=== PATIENT | female | born 1945 | race Caucasian/White ===

== ENCOUNTER 2018-10-18 01:42 | Observation (INO) | payer MEDICARE ==
[~2018-10-18] VITALS: Ht 154.9 cm; Wt 86.8 kg
[2018-10-18] MEDS ORDERED: IV NORMAL SALINE 500ML BAG 500 ML IV ONE (02:30)
--- NOTE | 2018-10-18 02:35 | PHYS DOC ---
Past Medical History Past Medical History: A-Fib, Arrhythmia, Depression, GERD, High Cholesterol, Hypertension Past Surgical History: Cholecystectomy, Hysterectomy Alcohol Use: None Drug Use: None Adult General HPI HPI Patient is a 73 year old female who presents for cough, nausea, SOB, and a sense of impeding doom. Patient reports she awoke from sleep around 2300 this PM with sensation of impeding doom, full body coldness/numbness, SOB and lightheadedness. She attempted to "walk it off" and made herself a cup of hot tea but this did not make her feel any better. She then decided to call EMS. She reports that her Sx have mostly resolved at this time and she feels warmer than before; however, she does still report some nausea and lightheadedness. she is feeling chest heaviness noted mild. Denies recent travel, hospitalizations, or surgeries. The patient reports recent cough and congestion , and was seen by her PCP for this. She has been using Flonase and antihistamines. She denies any fevers or chills. The patient does report an episode similar to her current occuring around 1 year ago while she was on vacation. She was evaluated at when she returned home where she had a NM stress test and echocardiogram. She reports that these results showed CAD, but she has no hx of WI or cardiac stents. SHE SAID she had a MPI last year at that she tells me was intermediate in nature she thinks it was indeterminate. Pt takes ASA daily, but no other blood thinners. No other complaints at this time. Of note patient did desat temporally 84% while nodding off in the emergency room she does report a history of sleep apnea but she doesn't like her CPAP because it makes her nose stuffy. Review of Systems Review of Systems Constitutional: + lightheadedness, Denies fever or chills [] Eyes: Denies change in visual acuity, redness, or eye pain [] HENT: + nasal congestion, No sore throat [] Respiratory: + cough, + SOB Cardiovascular: No additional information not addressed in HPI [] GI: Denies abdominal pain, nausea, vomiting, bloody stools or diarrhea [] : Denies dysuria or hematuria [] Musculoskeletal: Denies back pain or joint pain. denies leg swelling Integument: Denies rash or skin lesions [] Neurologic: Denies headache, focal weakness or sensory changes [] Endocrine: Denies polyuria or polydipsia [] All other systems were reviewed and found to be within normal limits, except as documented in this note. Current Medications Current Medications Current Medications Medications (Trade) Dose Ordered Sig/Caesar Start Time Stop Time Status Last Admin Dose Admin Acetaminophen (Tylenol) 1,000 mg 1X ONCE 10/18/18 05:15 10/18/18 05:16 DC 10/18/18 05:02 1,000 MG Aspirin (Children'S Aspirin) 324 mg 1X ONCE 10/18/18 06:00 10/18/18 06:01 Nitroglycerin (Nitro-Bid Oint) 1 inch 1X ONCE 10/18/18 06:00 10/18/18 06:01 Nitroglycerin (Nitrostat) 0.4 mg PRN Q5MIN PRN 10/18/18 04:45 10/19/18 04:44 10/18/18 04:51 0.4 MG Sodium Chloride 500 ml @ 500 mls/hr 1X ONCE 10/18/18 02:30 10/18/18 03:29 DC 10/18/18 02:52 500 MLS/HR Allergies Allergies Allergies Coded Allergies Type Severity Reaction Last Updated Verified Iodinated Contrast Media - IV Dye Allergy Intermediate RASH/SWELLING/SKIN TURNS RED. 05/26/15 Yes lidocaine Allergy Intermediate RASH/SWELLING 05/26/15 Yes shellfish derived Allergy Intermediate RED RASH/HIVES ALL OVER BODY 05/26/15 Yes Physical Exam Physical Exam Constitutional: Well developed, well nourished, no acute distress, non-toxic appearance. [] HENT: Normocephalic, atraumatic, bilateral external ears normal, oropharynx moist, no oral exudates, nose normal. [] Eyes: PERRLA, EOMI, conjunctiva normal, no discharge. [] Neck: Normal range of motion, no tenderness, supple, no stridor. [] Cardiovascular:Heart rate regular rhythm, no murmur [] Lungs & Thorax: Crackles in the RLL, moves air well, no respiratory distress or tachypnea, no wheezing or rhonchi Abdomen: Bowel sounds normal, soft, no tenderness, no masses, no pulsatile masses. [] Skin: Warm, dry, no erythema, no rash. [] Back: No tenderness, no CVA tenderness. [] Extremities: No tenderness, no cyanosis, no clubbing, ROM intact, no edema. [] Neurologic: Alert and oriented X 3, normal motor function, normal sensory function, no focal deficits noted. CN 2-12 intact bilat, no facial droop Psychologic: Affect normal, judgement normal, mood normal. [] Current Patient Data Vital Signs Vital Signs Date Time Temp Pulse Resp B/P (MAP) Pulse Ox O2 Delivery O2 Flow Rate FiO2 10/18/18 04:51 81 169/77 10/18/18 01:42 98.3 18 94 Room Air 98.3 Lab Values Laboratory Tests Test 10/18/18 01:50 10/18/18 02:20 10/18/18 04:35 Urine Collection Type Unknown Urine Color Yellow Urine Clarity Clear Urine pH 7.0 Urine Specific [place] 1.020 Urine Protein Negative mg/dL (NEG-TRACE) Urine Glucose (UA) 100 mg/dL (NEG) Urine Ketones (Stick) Negative mg/dL (NEG) Urine Blood Negative (NEG) Urine Nitrite Negative (NEG) Urine Bilirubin Negative (NEG) Urine Urobilinogen Dipstick 0.2 mg/dL (0.2 mg/dL) Urine Leukocyte Esterase Negative (NEG) Urine RBC 0 /HPF (0-2) Urine WBC 1-4 /HPF (0-4) Urine Squamous Epithelial Cells Few /LPF Urine Bacteria Few /HPF (0-FEW) Urine Mucus Mod /LPF White Blood Count 9.3 x10^3/uL (4.0-11.0) Red Blood Count 4.26 x10^6/uL (3.50-5.40) Hemoglobin 13.0 g/dL (12.0-15.5) Hematocrit 37.6 % (36.0-47.0) Mean Corpuscular Volume 88 fL (79-100) Mean Corpuscular Hemoglobin 31 pg (25-35) Mean Corpuscular Hemoglobin Concent 35 g/dL (31-37) Red Cell Distribution Width 13.1 % (11.5-14.5) Platelet Count 233 x10^3/uL (140-400) Neutrophils (%) (Auto) 74 % (31-73) H Lymphocytes (%) (Auto) 17 % (24-48) L Monocytes (%) (Auto) 7 % (0-9) Eosinophils (%) (Auto) 1 % (0-3) Basophils (%) (Auto) 1 % (0-3) Neutrophils # (Auto) 6.9 x10^3uL (1.8-7.7) Lymphocytes # (Auto) 1.6 x10^3/uL (1.0-4.8) Monocytes # (Auto) 0.7 x10^3/uL (0.0-1.1) Eosinophils # (Auto) 0.1 x10^3/uL (0.0-0.7) Basophils # (Auto) 0.1 x10^3/uL (0.0-0.2) Sodium Level 141 mmol/L (136-145) Potassium Level 3.6 mmol/L (3.5-5.1) Chloride Level 102 mmol/L (98-107) Carbon Dioxide Level 29 mmol/L (21-32) Anion Gap 10 (6-14) Blood Urea Nitrogen 13 mg/dL (7-20) Creatinine 0.6 mg/dL (0.6-1.0) Estimated GFR (Cockcroft-Gault) 97.5 BUN/Creatinine Ratio 22 (6-20) H Glucose Level 119 mg/dL (70-99) H Calcium Level 9.6 mg/dL (8.5-10.1) Total Bilirubin 0.2 mg/dL (0.2-1.0) Aspartate Amino Transferase (AST) 23 U/L (15-37) Alanine Aminotransferase (ALT) 26 U/L (14-59) Alkaline Phosphatase 76 U/L (46-116) Troponin I Quantitative 0.021 ng/mL (0.000-0.055) 0.046 ng/mL (0.000-0.055) Total Protein 7.3 g/dL (6.4-8.2) Albumin 3.9 g/dL (3.4-5.0) Albumin/Globulin Ratio 1.1 (1.0-1.7) Laboratory Tests 10/18/18 02:20 Laboratory Tests 10/18/18 02:20 EKG EKG [] Interpretation Time: EKG shows normal sinus rhythm rate of [address] changes anteriorly but there is no acute ischemia or STEMI seen. repeat ekg unchanged Radiology/Procedures Radiology/Procedures [] Impressions: Moderate elevation of right hemidiaphragm, increased from prior study. Calcified granuloma right lung base. Mild atelectasis in the right lung base. Atherosclerotic thoracic aorta. Mild cardiomegaly. The left lung is clear. No pleural abnormality. Bones unremarkable. IMPRESSION: Moderate elevation of right hemidiaphragm, increased from prior study. Mild right basilar atelectasis. Electronically signed by: Dejon Grant MD (10/18/2018 3:05 AM) [facility] [place] DICTATED and SIGNED BY: DEJON GRANT MD DATE: 10/18/18 030 Course & Med Decision Making Course & Med Decision Making Pertinent Labs and Imaging studies reviewed. (See chart for details) Assessment: 73 y/o female presents with depression hypertension etc. setting with sensation of some mild chest discomfort as well as heart palpitations and a sense of impending doom well at home blood pressure was 214 systolic at home here her blood pressure has improved with the above treatment she is feeling better however she still feels mild discomfort in her chest or repeat EKG is unchanged we give a dose of nitroglycerin which did help somewhat. Troponin went from 0.02 to 0.04 in the emergency room and slept opted to admit the patient for observation to the service of Dr. Rangel blood pressures much improved reevaluation is in the 140 range Noted the elevation of the right hemidiaphragm this is probably nonacute. Dragon Disclaimer Dragon Disclaimer This electronic medical record was generated, in whole or in part, using a voice recognition dictation system. Departure Departure Impression: Primary Impression: Elevated blood pressure reading Additional Impression: Chest pain Disposition: ADMITTED INPATIENT Admitting Physician: Irene Mccormick Condition: STABLE Referrals: CARMINA GONZÁLES DO (PCP) Problem Qualifiers MALISSA BRISCOE MD Oct 18, 2018 02:34
[2018-10-18 02:38] LABS: BASO # 0.1 x10^3/uL (0.0-0.2); BASO % 1 % (0-3); EOS # 0.1 x10^3/uL (0.0-0.7); EOS % 1 % (0-3); HEMATOCRIT 37.6 % (36.0-47.0); LYMPH # 1.6 x10^3/uL (1.0-4.8); LYMPH % 17 % (24-48); MEAN CORPUSCULAR HEMOGLOBIN 31 pg (25-35); MEAN CORPUSCULAR HGB CONC 35 g/dL (31-37); MEAN CORPUSCULAR VOLUME 88 fL (79-100); MONO # 0.7 x10^3/uL (0.0-1.1); MONO % 7 % (0-9); NEUT # 6.9 x10^3uL (1.8-7.7); NEUT % 74 % (31-73); PLATELET COUNT 233 x10^3/uL (140-400); RED BLOOD COUNT 4.26 x10^6/uL (3.50-5.40); RED CELL DISTRIBUTION WIDTH 13.1 % (11.5-14.5); WHITE BLOOD COUNT 9.3 x10^3/uL (4.0-11.0)
[2018-10-18 02:43] LABS: BILIRUBIN,URINE NEGATIVE (NEG); CLARITY,URINE CLEAR; COLOR,URINE YELLOW; NITRITE,URINE NEGATIVE (NEG); PROTEIN,URINE NEGATIVE (NEG-TRACE); UROBILINOGEN,URINE 0.2 mg/dL (0.2 mg/dL)
[2018-10-18 02:52] LABS: CALCIUM 9.6 mg/dL (8.5-10.1); CREATININE 0.6 mg/dL (0.6-1.0); GFR 97.5; POTASSIUM 3.6 mmol/L (3.5-5.1)
[2018-10-18 02:58] LABS: ALBUMIN 3.9 g/dL (3.4-5.0); ALBUMIN/GLOBULIN RATIO 1.1 (1.0-1.7); TOTAL BILIRUBIN 0.2 mg/dL (0.2-1.0); TOTAL PROTEIN 7.3 g/dL (6.4-8.2)
[2018-10-18 03:09] LABS: BACTERIA,URINE FEW /HPF (0-FEW); RBC,URINE 0 /HPF (0-2)
--- NOTE | 2018-10-18 03:09 | RAD ---
PORTABLE CHEST 1V Clinical Indication: soa Comparison: Acute abdominal series May 26, 2015. Findings: Moderate elevation of right hemidiaphragm, increased from prior study. Calcified granuloma right lung base. Mild atelectasis in the right lung base. Atherosclerotic thoracic aorta. Mild cardiomegaly. The left lung is clear. No pleural abnormality. Bones unremarkable. IMPRESSION: Moderate elevation of right hemidiaphragm, increased from prior study. Mild right basilar atelectasis. Electronically signed by: Dejon Grant MD (10/18/2018 3:05 AM) [id number]
[2018-10-18 03:10] LABS: SQUAMOUS EPITHELIAL CELL,UR FEW /LPF
[2018-10-18] MEDS ORDERED: NITROGLYCERIN SUBLINGUAL 0.4 MG BOTTLE OF 25. SL PRN ×2 (04:45→05:45)
[2018-10-18] MEDS ORDERED: ACETAMINOPHEN 500 MG TABLET PO ONE (05:15)
[2018-10-18] MEDS ORDERED: NITROGLYCERIN OINT 1 GM PACKET. TP ONE (06:00)
[2018-10-18] MEDS ORDERED: ASPIRIN CHEWABLE 81 MG TABLET. PO ONE (06:00)
[2018-10-18 06:49] VITALS: BP 145/72
--- NOTE | 2018-10-18 07:03 | EKG ---
[facility] [address] [place] [address] Test Date: 2018-10-18 Test Time: 02:03:57 Pat Name: TIANNA ABDUL Department: Room: Gender: F Ebd Teacher: : 1945 Requested By: MALISSA BRISCOE Order Number: [id number] Reading MD: Measurements Intervals [place] Rate: 78 P: 21 MD: 192 QRS: -8 QRSD: 96 T: 15 QT: 412 QTc: 474 Interpretive Statements SINUS RHYTHM LEFTWARD AXIS OTHERWISE NORMAL ECG RI6.01 No previous ECG available for comparison
--- NOTE | 2018-10-18 07:06 | EKG ---
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
[2018-10-18] MEDS ORDERED: METO50TA6 PO (07:40)
[2018-10-18] MEDS ORDERED: OMEP20TA63 PO (07:40)
[2018-10-18] MEDS ORDERED: MULT1TAB52 PO (07:41)
[2018-10-18] MEDS ORDERED: CALC500T54 PO (07:42)
[2018-10-18] MEDS ORDERED: ASPI-630 PO (07:43)
[2018-10-18] MEDS ORDERED: PRAV20TA2 PO (07:43)
[2018-10-18] MEDS ORDERED: CITA20TA6 PO (07:45)
[2018-10-18 09:03] LABS: CHOLESTEROL/HDL RATIO 4.5
--- NOTE | 2018-10-18 09:27 | PDOC2 ---
CARDIAC CONSULT DATE OF CONSULT Date of Consult DATE: 10/18/18 TIME: 09:08 REASON FOR CONSULT Reason for Consult: CP, HTn urgency REFERRING PHYSICIAN Referring Physician: maycol SOURCE Source: Chart review, Patient HISTORY OF PRESENT ILLNESS HISTORY OF PRESENT ILLNESS This is a pleasant 73 yo female admitted for multiple complaints. Reports that occasionally she gets this chest tightness feeling after walking her dog but no jaw or arm discomfort and no nausea, diaphoresis or SILVA. Last night she got up with sense of impending doom, her body was just not feeling good, dizziness, and was having some chest tightness and feeling like she could not breath well but no diaphoresis or SOA per se and no vomiting. She does take ASA, statin and BP meds. When her BP was checked her BP was in the 210s/110s she said. Denies any anxiety but does take celexa for fibromyalgia. This is the same episode she had at [place] 11/2017 and was told that it was her BP and was just dehydrated. She does admit that she does not hydrate herself enough. She had stress test at via Dr. Harris and was not told of any significant abnormality that would require intervention in 12/2017. Denies any recent falls, injury, fever, passing out. No past CAD, arrhythmias or CVA. Denies that she is depressed but has been told in the past that she has SULEMAN and actually uses CPAP till about a month ago when she stopped due to being nasally congested. She has been tired in the middle of the since then. PAST MEDICAL HISTORY Cardiovascular: HTN, Hyperlipidemia Pulmonary: Other (SULEMAN) CENTRAL NERVOUS SYSTEM: Other (No pertinent history) GI: No pertinent hx Heme/Onc: No pertinent hx Hepatobiliary: No pertinent hx Psych: No pertinent hx Musculoskeletal: Osteoarthritis Rheumatologic: Fibromyalgia Infectious disease: No pertinent hx Renal/: No pertinent hx Endocrine: Diabetes (pre) Dermatology: No pertinent hx PAST SURGICAL HISTORY Past Surgical History: Arthroscopy (left knee), Cholecystectomy, Hysterectomy ( vaginal) FAMILY HISTORY Family History: Hypertension SOCIAL HISTORY Smoke: No ALCOHOL: none Drugs: None Lives: Alone CURRENT MEDICATIONS CURRENT MEDICATIONS Current Medications Medications (Trade) Dose Ordered Sig/Caesar Route PRN Reason Start Time Stop Time Status Last Admin Dose Admin Sodium Chloride 500 ml @ 500 mls/hr 1X ONCE IV 10/18/18 02:30 12/21/18 03:29 DC 10/18/18 02:52 Nitroglycerin (Nitrostat) 0.4 mg PRN Q5MIN PRN SL CHEST PAIN 10/18/18 04:45 10/18/18 05:43 DC 10/18/18 04:51 Acetaminophen (Tylenol) 1,000 mg 1X ONCE PO 10/18/18 05:15 10/18/18 05:16 DC 10/18/18 05:02 Aspirin (Children'S Aspirin) 324 mg 1X ONCE PO 10/18/18 06:00 10/18/18 06:01 DC 10/18/18 06:04 Nitroglycerin (Nitro-Bid Oint) 1 inch 1X ONCE TP 10/18/18 06:00 10/18/18 06:01 DC 10/18/18 06:05 ALLERGIES ALLERGIES: Coded Allergies: Iodinated Contrast Media - IV Dye (Verified Allergy, Intermediate, RASH/ SWELLING/SKIN TURNS RED., 05/26/15) PATIENT NEEDS PRE-MEDICATED PRIOR TO ANY SCANS REQUIRING IV CONTRAST. lidocaine (Verified Allergy, Intermediate, RASH/SWELLING, 05/26/15) shellfish derived (Verified Allergy, Intermediate, RED RASH/HIVES ALL OVER BODY, 05/26/15) ROS Review of System 14 point ROS evaluated with pertinent positives noted per HPI PHYSICAL EXAM General: Alert, Oriented X3, Cooperative, No acute distress HEENT: Atraumatic, Mucous membr. moist/pink Lungs: Clear to auscultation, Normal air movement Heart: Regular rate (SRno rhythm ectopies), Normal S1, Normal S2, No murmurs Abdomen: Soft, No tenderness Extremities: No cyanosis, No edema Skin: No breakdown, No significant lesion Neuro: Normal gait, Normal speech, Sensation intact Psych/Mental Status: Mental status NL, Mood NL MUSCULOSKELETAL: Osteoarthritic changes both hands VITALS VITALS Vital Signs Date Time Temp Pulse Resp B/P (MAP) Pulse Ox O2 Delivery O2 Flow Rate FiO2 10/18/18 06:49 97.3 71 20 145/72 (96) 95 Room Air 97.3 LABS Lab: Laboratory Tests Test 10/18/18 01:50 10/18/18 02:20 10/18/18 04:35 Urine Collection Type Unknown Urine Color Yellow Urine Clarity Clear Urine pH 7.0 Urine Specific [place] 1.020 Urine Protein Negative mg/dL (NEG-TRACE) Urine Glucose (UA) 100 mg/dL (NEG) Urine Ketones (Stick) Negative mg/dL (NEG) Urine Blood Negative (NEG) Urine Nitrite Negative (NEG) Urine Bilirubin Negative (NEG) Urine Urobilinogen Dipstick 0.2 mg/dL (0.2 mg/dL) Urine Leukocyte Esterase Negative (NEG) Urine RBC 0 /HPF (0-2) Urine WBC 1-4 /HPF (0-4) Urine Squamous Epithelial Cells Few /LPF Urine Bacteria Few /HPF (0-FEW) Urine Mucus Mod /LPF White Blood Count 9.3 x10^3/uL (4.0-11.0) Red Blood Count 4.26 x10^6/uL (3.50-5.40) Hemoglobin 13.0 g/dL (12.0-15.5) Hematocrit 37.6 % (36.0-47.0) Mean Corpuscular Volume 88 fL (79-100) Mean Corpuscular Hemoglobin 31 pg (25-35) Mean Corpuscular Hemoglobin Concent 35 g/dL (31-37) Red Cell Distribution Width 13.1 % (11.5-14.5) Platelet Count 233 x10^3/uL (140-400) Neutrophils (%) (Auto) 74 % (31-73) Lymphocytes (%) (Auto) 17 % (24-48) Monocytes (%) (Auto) 7 % (0-9) Eosinophils (%) (Auto) 1 % (0-3) Basophils (%) (Auto) 1 % (0-3) Neutrophils # (Auto) 6.9 x10^3uL (1.8-7.7) Lymphocytes # (Auto) 1.6 x10^3/uL (1.0-4.8) Monocytes # (Auto) 0.7 x10^3/uL (0.0-1.1) Eosinophils # (Auto) 0.1 x10^3/uL (0.0-0.7) Basophils # (Auto) 0.1 x10^3/uL (0.0-0.2) Sodium Level 141 mmol/L (136-145) Potassium Level 3.6 mmol/L (3.5-5.1) Chloride Level 102 mmol/L (98-107) Carbon Dioxide Level 29 mmol/L (21-32) Anion Gap 10 (6-14) Blood Urea Nitrogen 13 mg/dL (7-20) Creatinine 0.6 mg/dL (0.6-1.0) Estimated GFR (Cockcroft-Gault) 97.5 BUN/Creatinine Ratio 22 (6-20) Glucose Level 119 mg/dL (70-99) Calcium Level 9.6 mg/dL (8.5-10.1) Total Bilirubin 0.2 mg/dL (0.2-1.0) Aspartate Amino Transf (AST/SGOT) 23 U/L (15-37) Alanine Aminotransferase (ALT/SGPT) 26 U/L (14-59) Alkaline Phosphatase 76 U/L (46-116) Troponin I Quantitative 0.021 ng/mL (0.000-0.055) 0.046 ng/mL (0.000-0.055) Total Protein 7.3 g/dL (6.4-8.2) Albumin 3.9 g/dL (3.4-5.0) Albumin/Globulin Ratio 1.1 (1.0-1.7) Triglycerides Level 156 mg/dL (0-150) Cholesterol Level 243 mg/dL (0-200) LDL Cholesterol, Calculated 158 mg/dL (0-100) VLDL Cholesterol, Calculated 31 mg/dL (0-40) Non-HDL Cholesterol Calculated 189 mg/dL (0-129) HDL Cholesterol 54 mg/dL (40-60) Cholesterol/HDL Ratio 4.5 ASSESSMENT/PLAN ASSESSMENT/PLAN 1. Chest pain: trop series nml. EKG SR without acute changes. suspect due to uncontrolled HTN with element of panic attack 2. Accelerated HTN: likely from inadequate coverage and uncontrolled SULEMAN 3. Uncontrolled SULEMAN: stopped using CPAP due to nasal congestion about a month ago 4. Anxiety with possible panic attack. 5. Hypertensive encephalopathy 6. HLP: not on goal 7. Obesity 8. IV contrast allergy: Hives 9. Hx of firbromyalgi: on celexa for this. Recommendations 1. Repeat tropx1. TTE today 2. Discussed CPAP compliance 3. Start on coreg and lisinopril and note response. On daily lopressor only at home 4. Continue ASA and increase statin. 5. Will obtain stress test result from 12/2017 NICOLE BENSON APRN Oct 18, 2018 09:27
[2018-10-18] MEDS ORDERED: LISINOPRIL 5 MG TABLET. PO SCH (10:00)
[2018-10-18] MEDS ORDERED: CARVEDILOL 6.25 MG TABLET. PO SCH ×2 (10:00→17:00)
[2018-10-18 11:10] VITALS: BP 121/63
--- NOTE | 2018-10-18 11:19 | HP ---
ADMIT DATE: 10/18/2018 CHIEF COMPLAINT: Impending doom. 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 She woke up this morning with impending doom. She states she was short of breath, nauseated, and thought she was going to . She called the ambulance. She was brought here. She rated her symptoms at 9/10. Had associated anxiety. I discussed the case with ER physician. We have admitted her. She is now on the cardiac floor. I have talked to nurse practitioner. We are going to try to get the old records from . Apparently, she had a stress test recently. PAST MEDICAL HISTORY: AFib, arrhythmias, depression, GERD, hypertension, hyperlipidemia, cholecystectomy, hysterectomy. ALLERGIES: IODINE, LIDOCAINE AND SHELLFISH. FAMILY HISTORY: Coronary artery disease. 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 She does not drink, smoke or take drugs. She is . MEDICATIONS: Reviewed, please refer to the MRAD. She is on 7 home medications including pravastatin, metoprolol, aspirin, citalopram, calcium, Prilosec and multiple vitamins. REVIEW OF SYSTEMS: GENERAL: No history of weight change, weakness or fevers. SKIN: No bruising, hair changes or rashes. EYES: No blurred, double or loss of vision. NOSE AND THROAT: No history of nosebleeds, hoarseness or sore throat. HEART: No history of palpitations, chest pain or shortness of breath on exertion. LUNGS: Denies cough, hemoptysis, wheezing or shortness of breath. GASTROINTESTINAL: Denies changes in appetite, nausea, vomiting, diarrhea or constipation. GENITOURINARY: No history of frequency, urgency, hesitancy or nocturia. NEUROLOGIC: Denies history of numbness, tingling, tremor or weakness. PSYCHIATRIC: No history of panic, anxiety or depression. ENDOCRINE: No history of heat or cold intolerance, polyuria or polydipsia. EXTREMITIES: Denies muscle weakness, joint pain, pain on walking or stiffness. PHYSICAL EXAMINATION: VITAL SIGNS: Temperature 97, pulse 80, respirations 20, blood pressure 145/72, O2 sat 95%. She is on 2 liters. GENERAL: She is awake, alert. Her is present and her son is present. They are good support for her. HEART: Normal S1, S2. LUNGS: Clear to auscultation. ABDOMEN: Soft, positive bowel sounds. EXTREMITIES: Trace edema. SKIN: No rashes. ENDOCRINE: No thyromegaly. LYMPHATICS: No cervical nodes. HEMATOPOIETIC: No bruising. PSYCHIATRIC: She is a little anxious. LABORATORY DATA: Hematology is normal. Electrolytes are pending. Troponin slightly high at 0.064. ASSESSMENT AND PLAN: Shortness of breath and sense of impending doom with a slight bump in her troponin to 0.064 in an elderly female who has the above noted comorbidities. Suspect she could have underlying coronary artery disease. I have consulted Cardiology. We are doing serial enzymes, serial EKGs, cardiac monitoring, home meds. We are going to try to get the results of her stress test from . Full code. TSH level, p.r.n. nitro, p.r.n. Tylenol. DORENE FRANCISCO DO DR: MARK/santiago JOB#: [id number] / [id number]
--- NOTE | 2018-10-18 12:02 | CARD ---
MR#: [id number] Date of Study: 10/18/2018 Ordering Physician: NICOLE RODRÍGUEZ, Referring Physician: DORENE FRANCISCO Tech: Suha Maya URBAN APPROVED REPORT EXAM: Two-dimensional and M-mode echocardiogram with Doppler and color Doppler. Other Information Quality : Technically LimitedHR: 80bpm Rhythm : NSR INDICATION Chest Pain 2D DIMENSIONS RVDd3.6 (2.9-3.5cm)Left Atrium(2D)3.9 (1.6-4.0cm) IVSd1.3 (0.7-1.1cm)Aortic Root(2D)2.9 (2.0-3.7cm) LVDd4.8 (3.9-5.9cm)LVOT Diameter1.9 (1.8-2.4cm) PWd1.0 (0.7-1.1cm)LVDs2.9 (2.5-4.0cm) FS (%) 40.6 %SV77.9 ml M-Mode DIMENSIONS Left Atrium(MM)3.09 (2.5-4.0cm)Aortic Root3.19 (2.2-3.7cm) Aortic Valve AoV Peak Farhad.181.7cm/sAoV VTI37.3cm AO Peak GR.13.2mmHgLVOT Peak Farhad.115.8cm/s AO Mean GR.6mmHgAVA (VMAX)1.76cm2 Mitral Valve MV E Lhwsyhrs06.4cm/sMV DECEL KYSX060vw MV A Vycvjczq99.4cm/sE/A Ratio0.8 MV A Fvqatefh171bl Pulmonary Valve PV Peak Ycjmzbah19.9cm/s Tricuspid Valve TR P. Gckojjda554wo/sRAP CKCTJVAF1nqQx TR Peak Gr.95qaTbHBPQ33mjAr LEFT VENTRICLE The left ventricle is normal size. There is mild concentric left ventricular hypertrophy. The left ve ntricular systolic function is normal and the ejection fraction is within normal range. The Ejection Fraction is 60-65%. There is normal LV segmental wall motion. Transmitral Doppler flow pattern is abn ormal. RIGHT VENTRICLE The right ventricle is borderline dilated. There is normal right ventricular wall thickness. The righ t ventricular systolic function is normal. ATRIA The left atrium is borderline dilated. The right atrium is borderline dilated. The interatrial septum is intact with no evidence for an atrial septal defect or patent foramen ovale as noted on 2-D or Do ppler imaging. AORTIC VALVE The aortic valve is normal in structure and function. The aortic valve is trileaflet. Doppler and Col or Flow revealed no significant aortic regurgitation. There is no significant aortic valvular stenosi s. There is no aortic valvular vegetation. MITRAL VALVE The mitral valve is normal in structure and function. There is no evidence of mitral valve prolapse. There is no mitral valve stenosis. Doppler and Color-flow revealed trace mitral regurgitation. TRICUSPID VALVE The tricuspid valve is normal in structure and function. Doppler and Color Flow revealed trace tricus pid regurgitation. The PA pressure was estimated at 29 mmHg. There is no tricuspid valve prolapse or vegetation. There is no tricuspid valve stenosis. PULMONIC VALVE Pulmonic valve not well visualized. GREAT VESSELS The aortic root is normal in size. The ascending aorta is normal in size. The IVC is normal in size a nd collapses >50% with inspiration. PERICARDIAL EFFUSION There is no evidence of significant pericardial effusion. Critical Notification Critical Value: No <Conclusion> The left ventricle is normal size. The left ventricular systolic function is normal and the ejection fraction is within normal range. The Ejection Fraction is 60-65%. There is mild concentric left ventricular hypertrophy. There is no significant aortic valvular stenosis. Doppler and Color Flow revealed no significant aortic regurgitation. Doppler and Color-flow revealed trace mitral regurgitation. Doppler and Color Flow revealed trace tricuspid regurgitation. The PA pressure was estimated at 29 mmHg. Signed by : Carlos Kaur MD Electronically Approved : 10/18/2018 12:00:27
[2018-10-18] MEDS ORDERED: REGADENOSON 0.4 MG/5 ML DISP.SYRIN. IV ONE (12:15)
--- NOTE | 2018-10-18 13:36 | EKG ---
[facility] [address] [place] [address] Test Date: 2018-10-18 Test Time: 13:21:22 Pat Name: TIANNA ABDUL Department: Room: Gender: F Telephone Repairer: REMBERTO : 1945 Requested By: MALISSA BRISCOE Order Number: [id number] Reading MD: Measurements Intervals [place] Rate: 75 P: 6 HI: 200 QRS: 3 QRSD: 88 T: 29 QT: 432 QTc: 485 Interpretive Statements SINUS RHYTHM PROLONGED QT NO SPECIFIC ECG ABNORMALITIES RI6.01 No previous ECG available for comparison
[2018-10-18 15:07] VITALS: BP 137/55
--- NOTE | 2018-10-18 15:45 | RAD ---
MR#: [id number] Date of Study: 10/18/2018 Ordering Physician: NICOLE RODRÍGUEZ, Referring Physician: LITTLE SHIPLEY Tech: ERIKA Hernandez ARRT (R) (N) APPROVED REPORT Test Type: Pharmacological Stress Nurse/Tech: Jailene Calderon R.N. Test Indications: dyspnea Cardiac History: asthma, htn, 2012 heart cath Medications: see ehr Medical History: see ehr Resting ECG: SR Resting Heart Rate: 82 bpm Resting Blood Pressure: 162/74mmHg Pretest Chest Pain: No chest pain Nurse/Tech Notes lungs cta, heart tones regular Consent: The procedure was explained to the patient in lay terms. Informed consent was witnessed. Rob eout was entered into uchoose. History and Stress Test performed by ERIKA Hernandez ARRT (R) (N) Pharm. Details Pharmacologic stress testing was performed using 0.4mg per 5ml of regadenoson given intravenously ove r 7-10 seconds. Stress Symptoms pt reports chest heaviness immediately following injection that resolved during recovery, now c/o MCKEON POST EXERCISE Reason for Termination: Infusion complete Target HR: No Max HR: 110 bpm Max Blood Pressure: 184/95mmHg Chest Pain: . pt states having chest heaviness, not actual pain per pt Arrhythmia: No. INTERPRETATION Stress EKG Conclusion: Resting EKG shows a sinus rhythm with nonspecific ST-T wave changes. The stress EKG shows further mild nonspecific ST segment changes that are not diagnostic of ischemia. No EKG changes that are diagnostic of stressed induced ischemia. Imaging Protocol IMAGE PROTOCOL: Rest Tc-99m/stress Tc-99m 1 day Rest: Stress: Viability: Radiopharm.Tc99m ZthojbptcFo46r Sestamibi Etxu87cZz 31mCi Img Date 10/18/2018 10/18/2018 Inj-Img Retk09cpc. 60min. Rest Admin Site:IV - Left AntecubitalAdministrator:RT Elan (R)(N) Stress Admin Site: IV - Left AntecubitalAdministrator: Roslyn Redmond, NMTCB, ARRT (R)(N) STRESS DATA End Diast. Vol.74.0mlLVEDV index BSA40.0ml End Syst. Vol.15.0mlLVESV index BSA8.0ml Myocardial Sefq545.0gEject. Enqslsab17.0% Stress Scores Regional WT0.00Summed WT0.00 Regional WM0.00Summed WM0.00 LV Perfusion This stress scans show an inferior lateral wall defect. The rest scans show an inferior lateral wall defect. 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 No significant reversible ischemia is present. Wall Motion Normal left ventricular systolic function with an ejection fraction of greater than 70%. LV Perf. Quant 17 Seg. SSS5.00 17 Seg. SRS8.00 17 Seg. SDS0.00 Stress Defect Extent (% LAD)0.00Rest Defect Extent (% LAD)7.50Rev. Defect Extent (% LAD)0.00 Stress Defect Extent (% LCX) 53.80Rest Defect Extent (% LCX)56.30Rev. Defect Extent (% LCX)0.00 Stress Defect Extent (% RCA)0.00Rest Defect Extent (% RCA)5.60Rev. Defect Extent (% RCA)0.00 Stress Defect Extent (% DALLIN)10.00Rest Defect Extent (% DALLIN)19.60Rev. Defect Extent (% DALLIN)0.00 Conclusion 1. Abnormal baseline EKG but no EKG evidence of stressed induced ischemia. 2. 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 3. Nuclear imaging shows no significant reversible ischemia. 4. Intact LV systolic function with an ejection fraction of greater than 70%. 5. Moderate to moderately low risk Lexiscan nuclear stress test showing no significant reversible isc hemia and an ejection fraction of greater than 70%. Signed by : Carlos Kaur MD Electronically Approved : 10/18/2018 15:43:43
[2018-10-18] MEDS ORDERED: LISI-338 PO (16:42)
[2018-10-18] MEDS ORDERED: ASPIRIN CHEWABLE 81 MG TABLET. PO SCH (21:00)
[2018-10-18] MEDS ORDERED: ATORVASTATIN CALCIUM 40 MG TABLET. PO SCH (21:00)
== END 2018-10-18 17:15 | disposition home or self-care (01) ==
LOC: ER 01:42 → 2 SOUTH 05:30
PROVIDERS: ADMIT Internal Medicine; ATTEND Internal Medicine
DX: R07.89 Other chest pain (principal); I10 Essential (primary) hypertension; G47.33 Obstructive sleep apnea (adult) (pediatric); F41.9 Anxiety disorder, unspecified; I67.4 Hypertensive encephalopathy; E66.9 Obesity, unspecified; M79.7 Fibromyalgia; J98.11 Atelectasis; I25.10 Atherosclerotic heart disease of native coronary artery without angina pectoris; E78.5 Hyperlipidemia, unspecified; I48.91 Unspecified atrial fibrillation; K21.9 Gastro-esophageal reflux disease without esophagitis; Z79.82 Long term (current) use of aspirin; Z91.041 Radiographic dye allergy status; Z90.710 Acquired absence of both cervix and uterus; Z82.49 Family history of ischemic heart disease and other diseases of the circulatory system
CPT/HCPCS: 36415; 71045; 78452; 80053; 80061; 81001; 84443; 84484; 85025; 93005; 93017; 93306; 96360; 99284; A9500; G0378; J2785; J7040; 96374; G0379

== ENCOUNTER 2018-11-11 03:18 | Emergency (ER) | payer MEDICARE ==
[~2018-11-11] VITALS: Ht 154.9 cm; Wt 85.3 kg
[~2018-11-11 03:18] MED LIST: ASPI-630 PO; CALC500T54 PO; CITA20TA6 PO; LISI-338 PO; METO50TA6 PO; MULT1TAB52 PO; OMEP20TA63 PO; PRAV20TA2 PO
--- NOTE | 2018-11-11 03:44 | PHYS DOC ---
Past Medical History Past Medical History: A-Fib, Arrhythmia, Depression, GERD, High Cholesterol, Hypertension, Other Additional Past Medical Histor: Sleep Apnea Past Surgical History: Cholecystectomy, Hysterectomy Alcohol Use: None Drug Use: None Adult General Chief Complaint Chief Complaint: SHORTNESS OF BREATH [facility] HPI Patient is a 73-year-old female who presents via EMS with report of shortness of breath and chest tightness. Patient states that for the last 4 days she has had a productive cough of thick yellow to greenish sputum and states that she has been doing fairly well but states that this morning when she was getting read to go to bed, she put on her CPAP and laid down to sleep. She states that she started to feel like she could not get a good enough breath in and developed chest tightness. She states that she took a half a Xanax and states the symptoms have improved somewhat but she still feeling a bit short of breath. She denies any actual chest pain, stating that it's just tightness in her chest. She does not believe that she has been running a fever. Patient states that she is not on any antibiotics. She does indicate that she was recently admitted to this facility for cardiac workup which she believes had returned unremarkable. Review of Systems Review of Systems Constitutional: Denies fever or chills [] Respiratory: Positive productive cough and shortness of breath [] Cardiovascular: No additional information not addressed in HPI [] Musculoskeletal: Denies back pain or joint pain [] Neurologic: Denies headache, focal weakness or sensory changes [] All other systems were reviewed and found to be within normal limits, except as documented in this note. Current Medications Current Medications Current Medications Medications (Trade) Dose Ordered Sig/[facility] Start Time Stop Time Status Last Admin Dose Admin Albuterol/ Ipratropium (Duoneb) 3 ml 1X ONCE 11/11/18 03:45 11/11/18 03:46 DC 11/11/18 04:32 3 ML Allergies Allergies Allergies Coded Allergies Type Severity Reaction Last Updated Verified Iodinated Contrast Media - IV Dye Allergy Intermediate RASH/SWELLING/SKIN TURNS RED. 05/26/15 Yes lidocaine Allergy Intermediate RASH/SWELLING 05/26/15 Yes shellfish derived Allergy Intermediate RED RASH/HIVES ALL OVER BODY 05/26/15 Yes Physical Exam Physical Exam Constitutional: Well developed, well nourished, no acute distress, non-toxic appearance. [] HENT: Normocephalic, atraumatic, bilateral external ears normal, oropharynx moist, no oral exudates, nose normal. [] Eyes: PERRLA, EOMI, conjunctiva normal, no discharge. [] Neck: Normal range of motion, no tenderness, supple, no stridor. [] Cardiovascular: Regular rate and rhythm [] Lungs & Thorax: There fine rhonchi in the lung bases to auscultation [] Abdomen: Bowel sounds normal, soft, no tenderness. [] Skin: Warm, dry, no erythema, no rash. [] Extremities: No tenderness, no cyanosis, no clubbing, ROM intact. [] Neurologic: Alert and oriented X 3, no focal deficits noted. [] Current Patient Data Vital Signs Vital Signs Date Time Temp Pulse Resp B/P (MAP) Pulse Ox O2 Delivery O2 Flow Rate FiO2 11/11/18 04:35 97 Room Air 11/11/18 04:01 84 20 180/86 (117) 11/11/18 03:18 98.1 98.1 Lab Values Laboratory Tests Test 11/11/18 03:30 11/11/18 03:45 White Blood Count 8.1 x10^3/uL (4.0-11.0) Red Blood Count 4.43 x10^6/uL (3.50-5.40) Hemoglobin 13.6 g/dL (12.0-15.5) Hematocrit 39.3 % (36.0-47.0) Mean Corpuscular Volume 89 fL (79-100) Mean Corpuscular Hemoglobin 31 pg (25-35) Mean Corpuscular Hemoglobin Concent 35 g/dL (31-37) Red Cell Distribution Width 13.5 % (11.5-14.5) Platelet Count 234 x10^3/uL (140-400) Neutrophils (%) (Auto) 80 % (31-73) H Lymphocytes (%) (Auto) 13 % (24-48) L Monocytes (%) (Auto) 6 % (0-9) Eosinophils (%) (Auto) 1 % (0-3) Basophils (%) (Auto) 1 % (0-3) Neutrophils # (Auto) 6.4 x10^3uL (1.8-7.7) Lymphocytes # (Auto) 1.0 x10^3/uL (1.0-4.8) Monocytes # (Auto) 0.5 x10^3/uL (0.0-1.1) Eosinophils # (Auto) 0.1 x10^3/uL (0.0-0.7) Basophils # (Auto) 0.0 x10^3/uL (0.0-0.2) Sodium Level 136 mmol/L (136-145) Potassium Level 3.7 mmol/L (3.5-5.1) Chloride Level 101 mmol/L (98-107) Carbon Dioxide Level 28 mmol/L (21-32) Anion Gap 7 (6-14) Blood Urea Nitrogen 10 mg/dL (7-20) Creatinine 0.8 mg/dL (0.6-1.0) Estimated GFR (Cockcroft-Gault) 69.9 BUN/Creatinine Ratio 13 (6-20) Glucose Level 133 mg/dL (70-99) H Calcium Level 9.4 mg/dL (8.5-10.1) Total Bilirubin 0.1 mg/dL (0.2-1.0) L Aspartate Amino Transferase (AST) 11 U/L (15-37) L Alanine Aminotransferase (ALT) 23 U/L (14-59) Alkaline Phosphatase 84 U/L (46-116) Troponin I Quantitative < 0.017 ng/mL (0.000-0.055) UE-Qar-T-Type Natriuretic Peptide 95 pg/mL (0-449) Total Protein 7.4 g/dL (6.4-8.2) Albumin 3.5 g/dL (3.4-5.0) Albumin/Globulin Ratio 0.9 (1.0-1.7) L Influenza Type A Antigen Negative (NEGATIVE) Influenza Type B Antigen Negative (NEGATIVE) Laboratory Tests 11/11/18 03:30 Laboratory Tests 11/11/18 03:30 EKG EKG [] Interpretation Time: EKG demonstrates normal sinus rhythm with rate of 83. Radiology/Procedures Radiology/Procedures [] Impressions: Chest x-ray demonstrates no acute process Course & Med Decision Making Course & Med Decision Making Pertinent Labs and Imaging studies reviewed. (See chart for details) [] Dragon Disclaimer Dragon Disclaimer This electronic medical record was generated, in whole or in part, using a voice recognition dictation system. Departure Departure Impression: Primary Impression: Acute bronchitis Additional Impression: Anxiety Disposition: HOME, SELF-CARE Condition: STABLE Referrals: CARMINA GONZÁLES DO (PCP) Patient Instructions: Acute Bronchitis Scripts Azithromycin (ZITHROMAX) 250 Mg Tablet 1 PKG PO UD, #6 TAB Prov: DIANDRA SHOOK Jr., DO 11/11/18 Problem Qualifiers Primary Impression: Acute bronchitis Bronchitis organism: unspecified organism Qualified Codes: J20.9 - Acute bronchitis, unspecified DIANDRA SHOOK Jr., DO Nov 11, 2018 03:44
[2018-11-11] MEDS ORDERED: IPRATRPIUM/ALBUTEROL 0.5/2.5MG 3 ML NEBU. NEB ONE (03:45)
[2018-11-11 03:48] LABS: BASO % 1 % (0-3); EOS # 0.1 x10^3/uL (0.0-0.7); EOS % 1 % (0-3); HEMATOCRIT 39.3 % (36.0-47.0); HEMOGLOBIN 13.6 g/dL (12.0-15.5); LYMPH % 13 % (24-48); MEAN CORPUSCULAR HEMOGLOBIN 31 pg (25-35); MEAN CORPUSCULAR HGB CONC 35 g/dL (31-37); MEAN CORPUSCULAR VOLUME 89 fL (79-100); MONO # 0.5 x10^3/uL (0.0-1.1); MONO % 6 % (0-9); NEUT # 6.4 x10^3uL (1.8-7.7); NEUT % 80 % (31-73); PLATELET COUNT 234 x10^3/uL (140-400); RED BLOOD COUNT 4.43 x10^6/uL (3.50-5.40); RED CELL DISTRIBUTION WIDTH 13.5 % (11.5-14.5); WHITE BLOOD COUNT 8.1 x10^3/uL (4.0-11.0)
[2018-11-11 03:58] LABS: CALCIUM 9.4 mg/dL (8.5-10.1); CREATININE 0.8 mg/dL (0.6-1.0); GFR 69.9; POTASSIUM 3.7 mmol/L (3.5-5.1)
[2018-11-11 04:04] LABS: ALBUMIN 3.5 g/dL (3.4-5.0); ALBUMIN/GLOBULIN RATIO 0.9 (1.0-1.7); TOTAL BILIRUBIN 0.1 mg/dL (0.2-1.0); TOTAL PROTEIN 7.4 g/dL (6.4-8.2)
[2018-11-11 04:07] LABS: INFLUENZA A PATIENT NEGATIVE (NEGATIVE); INFLUENZA B PATIENT NEGATIVE (NEGATIVE)
[2018-11-11] MEDS ORDERED: AZIT250T PO (05:03)
[2018-11-11] MEDS ORDERED: AZITHROMYCIN 250 MG TABLET. PO ONE (05:15)
[2018-11-11 05:20] VITALS: BP 168/88
--- NOTE | 2018-11-11 06:43 | EKG ---
[facility] [address] [place] [address] Test Date: 2018-11-11 Test Time: 03:28:35 Pat Name: TIANNA ABDUL Department: Room: Gender: F Journeyman Pressman: : 1945 Requested By: DIANDRA SHOOK Order Number: [id number] Reading MD: Ignacio Mckeon MD Measurements Intervals [place] Rate: 82 P: 7 DC: 210 QRS: -8 QRSD: 94 T: 28 QT: 378 QTc: 444 Interpretive Statements SINUS RHYTHM 1ST DEGREE AVB Electronically Signed On 11-12-2018 12:09:02 CROWN PERFORATOR OPERATOR by Ignacio Mckeon MD
--- NOTE | 2018-11-11 08:31 | RAD ---
Single view of the chest. 11/11/2018 4:08 AM Indication: COUGH, SOB Comparison: Chest radiograph October 18, 2018 Findings: Mild interstitial coarsening is stable. Elevation of the right hemidiaphragm is stable. No pneumothorax, pleural effusion, or new focal infiltrate is seen. Heart size is mildly enlarged but stable. Bony thorax is intact. IMPRESSION: Stable radiographic appearance of the chest without evidence of acute cardiopulmonary process Electronically signed by: José Miguel Barroso MD (11/11/2018 8:26 AM) [facility]
== END 2018-11-11 05:20 | disposition home or self-care (01) ==
LOC: ER 03:18
DX: J20.9 Acute bronchitis, unspecified (principal); F41.9 Anxiety disorder, unspecified; I48.91 Unspecified atrial fibrillation; K21.9 Gastro-esophageal reflux disease without esophagitis; E78.00 Pure hypercholesterolemia, unspecified; I10 Essential (primary) hypertension; Z90.710 Acquired absence of both cervix and uterus; Z90.49 Acquired absence of other specified parts of digestive tract; Z88.4 Allergy status to anesthetic agent; Z91.041 Radiographic dye allergy status; Z91.013 Allergy to seafood
CPT/HCPCS: 36415; 71045; 80053; 83880; 84484; 85025; 87804; 93005; 94640; 99284; J7620; Q0144

== ENCOUNTER 2018-12-06 06:32 | Outpatient (CLI) | payer MEDICARE ==
[~2018-12-06] VITALS: Ht 154.9 cm; Wt 85.3 kg
[2018-12-06] VITALS (8 sets, daily range): BP systolic 124–168; BP diastolic 64–87
[~2018-12-06 06:32] MED LIST changes: +AZIT250T PO
[2018-12-06 06:54] LABS: HEMATOCRIT 39.3 % (36.0-47.0); HEMOGLOBIN 12.8 g/dL (12.0-15.5); RED BLOOD COUNT 4.4 x10^6/uL (3.50-5.40); RED CELL DISTRIBUTION WIDTH 13.6 % (11.5-14.5); WHITE BLOOD COUNT 5.3 x10^3/uL (4.0-11.0)
[2018-12-06 07:03] LABS: CALCIUM 10.3 mg/dL (8.5-10.1); CREATININE 0.7 mg/dL (0.6-1.0); GFR 81.6; POTASSIUM 4.1 mmol/L (3.5-5.1); PROTHROMBIN TIME PATIENT 12.5 SEC (11.7-14.0)
[2018-12-06] MEDS ORDERED: IODIXANOL 320 MG/ML 100 ML VIAL. ONE (07:12)
[2018-12-06] MEDS ORDERED: LIDOCAINE 1% Multi-Dose 20 ML VIAL. ONE (07:12)
[2018-12-06] MEDS ORDERED: diphenhydrAMINE 50 MG/ML VIAL IVP ONE (07:30)
[2018-12-06] MEDS ORDERED: methylPREDNISolone SOD SUCC PF 125 MG/2 ML VIAL. IV ONE (07:30)
[2018-12-06] MEDS ORDERED: FAMOTIDINE 20 MG/2 ML VIAL IVP ONE (07:30)
[2018-12-06] MEDS ORDERED: MIDAZOLAM HCL/PF 2 MG/2 ML VIAL. ONE (07:32)
[2018-12-06] MEDS ORDERED: fentaNYL PF VIAL 100 MCG/2 ML VIAL ONE (07:32)
[2018-12-06] MEDS ORDERED: LOSA25TA PO (07:58)
[2018-12-06] MEDS ORDERED: calcium carbonate PO (07:58)
[2018-12-06] MEDS ORDERED: VIT1TABL32 PO (07:58)
[2018-12-06] MEDS ORDERED: ALBU2.5V8 INH (07:58)
[2018-12-06] MEDS ORDERED: ALPR0.25 PO (07:58)
[2018-12-06] MEDS ORDERED: fentaNYL PF VIAL 100 MCG/2 ML VIAL IV ONE (08:15)
[2018-12-06] MEDS ORDERED: IODIXANOL 320 MG/ML 100 ML VIAL. IART ONE (08:15)
[2018-12-06] MEDS ORDERED: MIDAZOLAM HCL/PF 2 MG/2 ML VIAL. IV ONE (08:15)
[2018-12-06] MEDS ORDERED: LIDOCAINE 1% Multi-Dose 20 ML VIAL. INJ ONE (08:15)
[2018-12-06] MEDS ORDERED: CONTRAST GIVEN. MC PRN (08:30)
[2018-12-06] MEDS ORDERED: LOSARTAN POTASSIUM 25 MG TABLET. PO ONE (08:45)
[2018-12-06] MEDS ORDERED: IV 1/2 NORMAL SALINE 1,000 ML IV SCH (08:48)
--- NOTE | 2018-12-06 08:48 | PDOC ---
MODERATE SEDATION ASSESSMENT RISKS/ALTERNATIVES Risks/Alternatives Risks and alternatives of this type of sedation and procedure discussed with: RISK/ALTERNATIVES: Patient H & P ON CHART H & P H & P on chart and reviewed for co-morbid conditions and appropriate labs. H&P ON CHART: Yes STATUS PREG STATUS ASSESSED: N/A MEDS/ALLERGIES REVIEWED Meds/Allergies Reviewed Medications and Allergies including time and route of recently administered narcotics and sedatives. MEDS/ALLERGIES REVIEWED: Yes ASA RATING ASA RATING: II AIRWAY ASSESSMENT Airway Assessment Airway patency, oral function limitations, presence of caps, crowns, dentures, partials, and ability to extend neck assessed. AIRWAY ASSESSMENT: Yes MALLAMPATI SCORE MALLAMPATI SCORE: II PRE-SEDATION ASSESSMENT PRE-SEDATION ASSESSMENT: Yes ALIX JONES MD Dec 06, 2018 08:48
[2018-12-06] MEDS ORDERED: 0.9 % SODIUM CHLORIDE 10 ML DISP.SYRIN. IV PRN (09:00)
[2018-12-06] MEDS ORDERED: NITROGLYCERIN SUBLINGUAL 0.4 MG BOTTLE OF 25. SL PRN (09:00)
--- NOTE | 2018-12-06 09:01 | CARD ---
MR#: [id number] Date of Study: 12/06/2018 Ordering Physician: ALIX JONES, Referring Physician: ALIX JONES Tech: MORE RODAS RTR APPROVED REPORT Technologist: MORE RODAS RTR Nurse: EFRAIN PHELAN RN Procedure(s) performed: Right and left heart catheterization and selective coronary angiography Moderate sedation: 40 min INDICATION The indication(s) include : Refractory dyspnea on exertion. CSHA Clinical Frailty Scale CSHA Clinical Frailty Scale: Mildly Frail Heart Failure Heart Failure: Yes If Yes, Newly Diagnosed: No If Yes, HF Type: Diastolic If Yes, NYHA Class: Class II PROCEDURE NARRATIVE After explaining the risks, benefits and alternative options, informed consent was obtained from kirsten ent. Patient was brought to the cardiac Fryer Line Helper and her right groin was prepped and draped in the us ual fashion. 20 mL of 2% lidocaine was infiltrated into the skin and subcutaneous tissues for local a nesthesia. Arterial and venous accesses were obtained in the right common femoral artery and vein res pectively and 6 and 8 Venezuelan sheaths inserted. 7.5 [place] catheter was then advanced under fluoroscopy guidance and intracardiac pressures, oxygen saturations and cardiac output by thermodilut ion method obtained. 6 Venezuelan JL4 and 6 Venezuelan JR4 catheters were used to perform selective angiograp hy of the left and right coronary arteries. LVEDP and transaortic gradients were measured. Finally, b ilateral selective renal angiography was performed, that he will be reported separately. Patient skye rated the procedure well. Hemostasis was achieved using mynx closure device and manual compression. T here were no immediate complications. The following findings were noted. A. RIGHT HEART CATHETERIZATION 1. Intracardiac pressures: Mean right atrial pressure 6 cm mercury, right ventricle pressure 55/3 m mHg, pulmonary artery 52/18 mmHg with mean PA pressure 33 mmHg, primary capillary wedge pressure 11 m mHg. Mild pulmonary hypertension. 2. Oxygen saturations: Right atrium 78.6%, pulmonary artery 78.4%, femoral arterial sheath 94.9%. N o evidence of intracardiac shunt. 3. Cardiac output by thermodilution method 6.1 L/m and by Marimar method 5.9 L/m. B. LEFT HEART CATHETERIZATION 1. Hemodynamics: Left ventricle end diastolic pressure 25 mmHg consistent with chronic diastolic he art failure. No pullback gradient across the aortic valve. 2. Selective coronary angiography: a. The left main coronary artery arose from the left sinus of Valsalva, gave rise to the left anteri or descending and left circumflex arteries and did not show any significant stenosis. b. The left anterior descending artery did not show any significant stenosis. c. The left circumflex artery did not show any significant stenosis. d. The right coronary artery was a large and dominant vessel arising from the right sinus of Valsalv a that did not show any significant stenosis. Conclusion 1. No significant coronary artery disease 2. Mild pulmonary hypertension 3. Chronic diastolic heart failure 4. No evidence of intracardiac shunt Recommendations Medical Therapy Signed by : Alix Jones, Electronically Approved : 12/06/2018 08:59:42
--- NOTE | 2018-12-06 09:05 | CARD ---
MR#: [id number] Date of Study: 12/06/2018 Ordering Physician: ALIX JONES Referring Physician: ALIX JONES Tech: MORE RODAS RTR APPROVED REPORT Technologist: MORE RODAS RTR Nurse: EFRAIN PHELAN RN Procedure(s) performed: Bilateral selective renal angiography Moderate sedation: 40 min INDICATION The indication(s) include : Resistant hypertension. PROCEDURE NARRATIVE After explaining the risks, benefits and alternative options, informed consent was obtained from kirsten ent. Patient was brought to the cardiac Crester and her right groin was prepped and draped in the us ual fashion. 20 mL of 2% lidocaine was infiltrated into the skin and subcutaneous tissues for local a nesthesia. Arterial and venous accesses were obtained in the right common femoral artery and vein res pectively and 6 and 8 Romanian sheaths inserted. Right and left heart catheterization was performed, re ported separately. 6 Romanian JR4 catheter was used to perform bilateral selective renal angiography. P atient tolerated the procedure well. Hemostasis was achieved using mynx closure device and manual com pression. There were no immediate complications. The following findings were noted. FINDINGS 1. The right kidney is supplied by one main renal artery that did not show any significant stenosis. 2. The left kidney is supplied by one main renal artery and an accessory renal artery, both of which did not show any significant stenosis. Conclusion No significant renal artery stenosis. Recommendations Medical Therapy Signed by : Alix Jonse, Electronically Approved : 12/06/2018 09:02:40
--- NOTE | 2018-12-06 11:50 | NUR ---
discharge instruction reviewed with pt. Pt stated understanding. Pt tolerated PO and ambulated. Pt home with family
== END 2018-12-06 11:51 | disposition home or self-care (01) ==
LOC: CCL 06:32
PROVIDERS: ATTEND Internal Medicine Cardiovascular Disease
DX: I11.0 Hypertensive heart disease with heart failure (principal); I50.32 Chronic diastolic (congestive) heart failure; I27.20 Pulmonary hypertension, unspecified; R06.09 Other forms of dyspnea; Z91.041 Radiographic dye allergy status; Z91.013 Allergy to seafood; Z79.82 Long term (current) use of aspirin; Z79.899 Other long term (current) drug therapy
CPT/HCPCS: 36252; 36415; 80048; 85027; 85610; 93460; C1713; C1769; C1773; C1892; G0269; J1200; J1644; J2250; J2930; J3010; J3490; 99152; 99153

== ENCOUNTER → 2020-04-06 | Outpatient (CLI) | payer MEDICARE ==
[2018-12-06 10:35] VITALS: BP 140/70
[~2020-04-06] MED LIST changes: +ALBU2.5V8 INH; +ALPR0.25 PO; +LOSA25TA PO; +MULT-445 PO; -MULT1TAB52 PO; +VIT1TABL32 PO; +calcium carbonate PO
--- NOTE | 2020-04-06 12:55 | CARD ---
MR#: [id number] Date of Study: 04/06/2020 Ordering Physician: ALIX JONES, Referring Physician: ALIX JONES, Tech: Kusum Lezama APPROVED REPORT EXAM: Two-dimensional and M-mode echocardiogram with Doppler and color Doppler. Other Information Quality : AverageHR: 56bpm INDICATION Dyspnea RISK FACTORS Hypertension Hyperlipidemia Diabetes 2D DIMENSIONS RVDd3.6 (2.9-3.5cm)Left Atrium(2D)3.5 (1.6-4.0cm) IVSd1.0 (0.7-1.1cm)Aortic Root(2D)2.8 (2.0-3.7cm) LVDd4.6 (3.9-5.9cm)LVOT Diameter1.9 (1.8-2.4cm) PWd1.0 (0.7-1.1cm)LVDs2.9 (2.5-4.0cm) FS (%) 35.9 %SV63.2 ml Aortic Valve AoV Peak Farhad.139.8cm/sAoV VTI33.4cm AO Peak GR.7.8mmHgLVOT Peak Farhad.86.9cm/s AO Mean GR.4mmHgAVA (VMAX)1.71cm2 Mitral Valve MV E Zsfxorjg69.9cm/sMV E Peak Gr.2mmHg MV DECEL ZRYB348hoTM A Tnlmsnqs81.0cm/s MV E Mean Gr.1mmHgE/A Ratio0.8 Pulmonary Valve PV Peak Fyxwcvcd75.7cm/s Tricuspid Valve TR P. Foxynxtm978dk/sRAP UYEIDWWB7ngBd TR Peak Gr.43ulLeVYUN06svTd Pulmonary Vein S1 Tvuzsduz87.9cm/sD2 Wgbtmkll66.2cm/s PVa tojgfhbn238dqmn LEFT VENTRICLE The left ventricle is normal size. Proximal septal thickening is noted. The left ventricular systolic function is normal and the ejection fraction is within normal range. The Ejection Fraction is 50-55% . There is normal LV segmental wall motion. Transmitral Doppler flow pattern is Grade I-abnormal rela xation pattern. RIGHT VENTRICLE The right ventricle is normal size. There is normal right ventricular wall thickness. The right ventr icular systolic function is normal. ATRIA The left atrium size is normal. The right atrium size is normal. The interatrial septum is intact wit h no evidence for an atrial septal defect or patent foramen ovale as noted on 2-D or Doppler imaging. AORTIC VALVE The aortic valve is thickened but opens well. Doppler and Color Flow revealed no significant aortic r egurgitation. There is no significant aortic valvular stenosis. MITRAL VALVE The mitral valve is normal in structure and function. There is no evidence of mitral valve prolapse. There is no mitral valve stenosis. Doppler and Color-flow revealed trace mitral regurgitation. TRICUSPID VALVE The tricuspid valve is normal in structure and function. Doppler and Color Flow revealed trace tricus pid regurgitation with an estimated PAP of 35 mmHg. There is no tricuspid valve stenosis. PULMONIC VALVE The pulmonic valve is not well visualized. Doppler and Color Flow revealed no pulmonic valvular regur gitation. GREAT VESSELS The aortic root is normal in size. The ascending aorta is normal in size. The IVC is normal in size a nd collapses >50% with inspiration. PERICARDIAL EFFUSION There is no evidence of significant pericardial effusion. Critical Notification Critical Value: No <Conclusion> The left ventricle is normal size. The left ventricular systolic function is normal and the ejection fraction is within normal range. The Ejection Fraction is 50-55%. Doppler and Color Flow revealed no significant aortic regurgitation. There is no significant aortic valvular stenosis. Doppler and Color-flow revealed trace mitral regurgitation. Doppler and Color Flow revealed trace tricuspid regurgitation with an estimated PAP of 35 mmHg. Signed by : Carlos Kaur MD Electronically Approved : 04/06/2020 12:55:21
== END ==
LOC: ECHO 09:48
PROVIDERS: ATTEND Internal Medicine Cardiovascular Disease
DX: I10 Essential (primary) hypertension (principal)
CPT/HCPCS: 93306

== ENCOUNTER 2020-05-28 00:32 | Observation (INO) | payer MEDICARE ==
[~2020-05-28] VITALS: Ht 157.5 cm; Wt 80.0 kg
[2020-05-28 01:15] LABS: BASO # 0.1 x10^3/uL (0.0-0.2); BASO % 1 % (0-3); EOS # 0.1 x10^3/uL (0.0-0.7); EOS % 2 % (0-3); HEMATOCRIT 42.2 % (36.0-47.0); HEMOGLOBIN 14.3 g/dL (12.0-15.5); LYMPH % 32 % (24-48); MEAN CORPUSCULAR HEMOGLOBIN 30 pg (25-35); MEAN CORPUSCULAR HGB CONC 34 g/dL (31-37); MEAN CORPUSCULAR VOLUME 89 fL (79-100); MONO # 0.6 x10^3/uL (0.0-1.1); MONO % 10 % (0-9); NEUT # 3.5 x10^3/uL (1.8-7.7); NEUT % 56 % (31-73); PLATELET COUNT 243 x10^3/uL (140-400); RED BLOOD COUNT 4.75 x10^6/uL (3.50-5.40); RED CELL DISTRIBUTION WIDTH 12.9 % (11.5-14.5); WHITE BLOOD COUNT 6.3 x10^3/uL (4.0-11.0)
[2020-05-28 01:16] LABS: BILIRUBIN,URINE NEGATIVE (NEG); CLARITY,URINE CLOUDY; COLOR,URINE YELLOW; NITRITE,URINE NEGATIVE (NEG); PH,URINE 7.5 (<5.0-8.0); PROTEIN,URINE NEGATIVE (NEG-TRACE); UROBILINOGEN,URINE 0.2 mg/dL (0.2 mg/dL)
[2020-05-28 01:23] LABS: BACTERIA,URINE FEW /HPF (0-FEW); RBC,URINE OCC /HPF (0-2); SQUAMOUS EPITHELIAL CELL,UR FEW /LPF; WBC,URINE OCC /HPF (0-4)
[2020-05-28 01:33] LABS: CALCIUM 9.8 mg/dL (8.5-10.1); CREATININE 0.8 mg/dL (0.6-1.0); GFR 69.7; POTASSIUM 3.7 mmol/L (3.5-5.1)
[2020-05-28 01:38] LABS: ALBUMIN 3.9 g/dL (3.4-5.0); ALBUMIN/GLOBULIN RATIO 1.1 (1.0-1.7); TOTAL BILIRUBIN 0.2 mg/dL (0.2-1.0); TOTAL PROTEIN 7.6 g/dL (6.4-8.2)
--- NOTE | 2020-05-28 01:44 | RAD ---
CT head without contrast: Reason for examination: Headache. Axial images were obtained through the brain. No contrast was administered. Exposure: One or more of the following individualized dose reduction techniques were utilized for this examination: 1. Automated exposure control 2. Adjustment of the mA and/or kV according to patient size 3. Use of iterative reconstruction technique. Ventricular systems are symmetric and not dilated. No midline shift is seen. There is no evidence of intracranial hemorrhage, infarct, mass or edema. No abnormalities of seen at the orbits. The paranasal sinuses and mastoid air cells are clear. No acute skull abnormality is seen. IMPRESSION: No acute intracranial abnormality evident. Electronically signed by: Ashly Dyson MD (05/28/2020 1:41 AM) [id number]
--- NOTE | 2020-05-28 02:22 | PHYS DOC ---
Past Medical History Past Medical History: A-Fib, Arrhythmia, Depression, GERD, High Cholesterol, Hypertension, Other Additional Past Medical Histor: Sleep Apnea Past Surgical History: Cholecystectomy, Hysterectomy Smoking Status: Never Smoker Alcohol Use: None Drug Use: None General Adult EDM: Chief Complaint: MULTIPLE COMPLAINTS HPI: HPI: Patient is a 74 year old female who presents with multiple complaints. Patient states that she has been fatigued and just feeling unwell for the last couple of days. Earlier today she had some palpitations. These have now resolved. She has been having intermittent palpitations for quite some time. She sees a msws here and has had a Holter monitor before. They are unsure what is causing her arrhythmias. 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 She is never had anything like this previously. She is now feeling better. She does still feel little out of breath and fatigue. Review of Systems: Review of Systems: General: Denies fever, chills, sweats. Reports fatigue Eyes: Denies drainage, blurred vision, eye redness HENT: Denies rhinorrhea, sore throat, earache Respiratory: Denies cough, wheezing. Reports SOB Cardiac: Denies edema. Reports palpitations, chest pain GI: Denies abdominal pain, Nausea, vomiting MSK: Denies back pain, neck pain Skin: Denies rash, jaundice Neuro: Denies headache, dizziness Psychiatric: Denies SI/HI Heart Score: Risk Factors: Risk Factors: DM, Current or recent (<one month) smoker, HTN, HLP, family history of CAD, obesity. Risk Scores: Score 0 - 3: 2.5% MACE over next 6 weeks - Discharge Home Score 4 - 6: 20.3% MACE over next 6 weeks - Admit for Clinical Observation Score 7 - 10: 72.7% MACE over next 6 weeks - Early Invasive Strategies Allergies: Allergies: Allergies Coded Allergies Type Severity Reaction Last Updated Verified Iodinated Contrast Media Allergy Intermediate RASH/SWELLING/SKIN TURNS RED. 05/26/15 Yes shellfish derived Allergy Intermediate RED RASH/HIVES ALL OVER BODY 05/26/15 Yes Physical Exam: PE: General: Awake, alert, NAD. Well Nourished, well hydrated. Cooperative HEENT: Atraumatic, EOMI, PERRL, airway patent, moist oral mucosa Neck: Supple, trachea midline Respiratory: CTA bilaterally, normal effort, no wheezing/crackles CV: RRR, no murmur, cap refill <2 GI: Soft, nondistended, nontender, no masses MSK: No obvious deformities Skin: Warm, dry, intact Neuro: A&O x3, speech NL, sensory and motor grossly intact, no focal deficits Psych: Normal affect, normal mood, not suicidal or homicidal Current Patient Data: Labs: Laboratory Tests Test 05/28/20 01:00 05/28/20 01:03 Urine Collection Type Unknown Urine Color Yellow Urine Clarity Cloudy Urine pH 7.5 (<5.0-8.0) Urine Specific [place] 1.010 (1.000-1.030) Urine Protein Negative mg/dL (NEG-TRACE) Urine Glucose (UA) Negative mg/dL (NEG) Urine Ketones (Stick) Negative mg/dL (NEG) Urine Blood Negative (NEG) Urine Nitrite Negative (NEG) Urine Bilirubin Negative (NEG) Urine Urobilinogen Dipstick 0.2 mg/dL (0.2 mg/dL) Urine Leukocyte Esterase Negative (NEG) Urine RBC Occ /HPF (0-2) Urine WBC Occ /HPF (0-4) Urine Squamous Epithelial Cells Few /LPF Urine Bacteria Few /HPF (0-FEW) Urine Mucus Slight /LPF White Blood Count 6.3 x10^3/uL (4.0-11.0) Red Blood Count 4.75 x10^6/uL (3.50-5.40) Hemoglobin 14.3 g/dL (12.0-15.5) Hematocrit 42.2 % (36.0-47.0) Mean Corpuscular Volume 89 fL (79-100) Mean Corpuscular Hemoglobin 30 pg (25-35) Mean Corpuscular Hemoglobin Concent 34 g/dL (31-37) Red Cell Distribution Width 12.9 % (11.5-14.5) Platelet Count 243 x10^3/uL (140-400) Neutrophils (%) (Auto) 56 % (31-73) Lymphocytes (%) (Auto) 32 % (24-48) Monocytes (%) (Auto) 10 % (0-9) H Eosinophils (%) (Auto) 2 % (0-3) Basophils (%) (Auto) 1 % (0-3) Neutrophils # (Auto) 3.5 x10^3/uL (1.8-7.7) Lymphocytes # (Auto) 2.0 x10^3/uL (1.0-4.8) Monocytes # (Auto) 0.6 x10^3/uL (0.0-1.1) Eosinophils # (Auto) 0.1 x10^3/uL (0.0-0.7) Basophils # (Auto) 0.1 x10^3/uL (0.0-0.2) D-Dimer (Laura) 0.35 ug/mlFEU (0.00-0.50) Sodium Level 139 mmol/L (136-145) Potassium Level 3.7 mmol/L (3.5-5.1) Chloride Level 103 mmol/L (98-107) Carbon Dioxide Level 32 mmol/L (21-32) Anion Gap 4 (6-14) L Blood Urea Nitrogen 14 mg/dL (7-20) Creatinine 0.8 mg/dL (0.6-1.0) Estimated GFR (Cockcroft-Gault) 69.7 BUN/Creatinine Ratio 18 (6-20) Glucose Level 123 mg/dL (70-99) H Calcium Level 9.8 mg/dL (8.5-10.1) Total Bilirubin 0.2 mg/dL (0.2-1.0) Aspartate Amino Transferase (AST) 19 U/L (15-37) Alanine Aminotransferase (ALT) 26 U/L (14-59) Alkaline Phosphatase 68 U/L (46-116) Troponin I Quantitative < 0.017 ng/mL (0.000-0.055) [id number]-Zug-U-Type Natriuretic Peptide 93 pg/mL (0-449) Total Protein 7.6 g/dL (6.4-8.2) Albumin 3.9 g/dL (3.4-5.0) Albumin/Globulin Ratio 1.1 (1.0-1.7) Laboratory Tests 05/28/20 01:03 Laboratory Tests 05/28/20 01:03 Vital Signs: Vital Signs Date Time Temp Pulse Resp B/P (MAP) Pulse Ox O2 Delivery O2 Flow Rate FiO2 05/28/20 00:51 97.8 69 18 181/87 (118) 97 Room Air 97.8 EKG: EKG: [] Radiology/Procedures: Radiology/Procedures: [] Course & Med Decision Making: Course & Med Decision Making Pertinent Labs and Imaging studies reviewed. (See chart for details) Patient is 74-year-old female presents to the emergency room complaining of palpitations, dizziness, chest pain, headache. Patient has a normal neurologic exam. She is overall well-appearing. Work-up was ordered including CBC, BMP, troponin, BNP, d-dimer, chest x-ray, CT head. D-dimer is negative. Work-up is negative. Patient did have intermittent hypoxia while here in the emergency room. She will be admitted for further work-up of her chest pain and dizziness. Dragon Disclaimer: Dragon Disclaimer: This electronic medical record was generated, in whole or in part, using a voice recognition dictation system. Departure Departure Impression: Primary Impression: Dizziness Additional Impression: Chest pain Disposition: ADMITTED INPATIENT Condition: STABLE Referrals: CARMINA GONZÁLES DO (PCP) Justicifation of Admission Dx: Justifications for Admission: Justification of Admission Dx: Yes RAY JONES MD May 28, 2020 02:21
--- NOTE | 2020-05-28 02:48 | RAD ---
Chest PA and lateral: Reason for examination: Chest pressure. Comparison is made to previous study dated 11/11/2018. The heart size is normal. Mediastinum is unremarkable. Lung olivera show a small calcified granuloma at the right lung base and there is some linear atelectasis present at the lung bases. There continues to be elevation of the right hemidiaphragm which is unchanged. No acute bony abnormalities are seen. Impression: Linear atelectasis at the lung bases. Electronically signed by: Ashly Dyson MD (05/28/2020 2:45 AM) [id number]
[2020-05-28 05:10] VITALS: BP 159/74
[2020-05-28] MEDS ORDERED: CALC600T6 PO (05:58)
[2020-05-28] MEDS ORDERED: METO-239 PO (05:58)
[2020-05-28] MEDS ORDERED: PRAV20TA2 PO (05:58)
--- NOTE | 2020-05-28 05:59 | NUR ---
Patient arrived to unit at approx 0510 accompanied by ED RN. resting comfortably on RA. VS stable, assessment complete. Patient states that she takes all of her medications at bed time. Pt reports no pain at this time, states that the pain she was having when she arrived in the ED was "wasn't really pain, my chest just didn't feel right". Pt us allergic to Iodine contrast and shellfish-rash/hives. States that if she takes Solumedrol and Benadryl prior to having iodine contrast then she is fine. oriented patient to unit. call light in reach, reminded pt to call for assistance when needed. Bed in low locked position, will continue to monitor.
[2020-05-28 07:00] VITALS: BP 138/83
--- NOTE | 2020-05-28 08:48 | PDOC1 ---
History and Physical Date of Admission: Date of Admission DATE: 05/28/20 TIME: 08:45 History of Present Illness: HPI: 74 year old female who presents with multiple complaints. Patient states that she has been fatigued and just feeling unwell for the last couple of days. Earlier today she had some palpitations. These have now resolved. She has been having intermittent palpitations for quite some time. 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 They are unsure what is causing her arrhythmias. 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 She is never had anything like this previously. She is now feeling better. She does still feel little out of breath and fatigue. Past Medical/Surgical History: PMH/PSH: Past Medical History: A-Fib, Arrhythmia, Depression, GERD, High Cholesterol, Hypertension, Sleep Apnea Past Surgical History: Cholecystectomy, Hysterectomy Allergies: Allergies: Coded Allergies: Iodinated Contrast Media (Verified Allergy, Intermediate, RASH/SWELL ING/SKIN TURNS RED., 05/26/15) PATIENT NEEDS PRE-MEDICATED PRIOR TO ANY SCANS REQUIRING IV CONTRAST. shellfish derived (Verified Allergy, Intermediate, RED RASH/HIVES ALL OVER BODY, 05/26/15) Family History: Family History: Reviewed and none reported Social History: Social History: Smoking Status: Never Smoker Alcohol Use: None Drug Use: None Current Medications: Current Medications Active Scripts Active Reported Pravastatin Sodium 20 Mg Tablet 20 Mg PO HS Metoprolol Succinate ( Xl ) (Metoprolol Succinate) 25 Mg Tab.er.24h 25 Mg PO DAILY Calcium (Calcium Carbonate) 600 Mg Tablet 600 Mg PO HS Citalopram Hbr (Citalopram Hydrobromide) 20 Mg Tablet 20 Mg PO HS Aspirin 81 Mg Tab.chew 81 Mg PO HS Multivitamins (Multivitamin) 1 Each Tablet 1 Each PO HS Prilosec Otc (Omeprazole Magnesium) 20 Mg Tablet.dr 20 Mg PO HS ROS: Review of Systems Review of System REVIEW OF SYSTEMS: GENERAL: Denies weakness SKIN: No bruising, hair changes or rashes. EYES: No blurred, double or loss of vision. NOSE AND THROAT: No history of nosebleeds, hoarseness or sore throat. HEART: No history of palpitations, chest pain or shortness of breath on exertion. LUNGS: Denies cough, hemoptysis, wheezing or shortness of breath. GASTROINTESTINAL: Denies changes in appetite, nausea, vomiting, diarrhea or constipation. GENITOURINARY: No history of frequency, urgency, hesitancy or nocturia. NEUROLOGIC: Denies history of numbness, tingling, or tremor. PSYCHIATRIC: No history of panic, anxiety or depression. ENDOCRINE: No history of heat or cold intolerance, polyuria or polydipsia. EXTREMITIES: Denies joint pain, pain on walking or stiffness. Physical Exam: Vital Signs: Vital Signs Date Time Temp Pulse Resp B/P (MAP) Pulse Ox O2 Delivery O2 Flow Rate FiO2 05/28/20 07:00 97.6 64 16 138/83 (101) 91 Room Air 97.6 Physcial Exam: GEN: No apparent distress. Alert and oriented HEENT: Normal cephalic, atraumatic, external auditory canals are patent EYES: Extraocular muscles are intact, pupil are equally round and reactive to light and accommodation MUSCULOSKELETAL: Well developed , well nourished, good range of motion ENDOCRINE: No thyromegaly was palpated LYMPHATICS: No cervical chain or axillary nodes were noted HEMATOPOIETIC: No bruising NECK: Supple, no JVD, no thyromegaly was noted LUNGS: Clear to auscultation in all lung olivera without rhonchi or wheezing HEART: RRR, S!, S2 present. Peripheral pulses intact, no obvious murmurs noted ABDOMEN: Soft, nontender. Positive bowel sounds, no organomegaly, normal bowel sounds EXTREMITIES: Without clubbing, cyanosis, or edema. Pedal pulses intact. Negative Homans sign NEUROLOGIC: Normal speech and tone. A&O x 3, moves all extremities, no obvious focal deficits PSYCHIATRIC: Normal affect, normal mood. Stable SKIN: No ulcerations or rashes, good skin turgor, no jaundice VASCULAR: Good capillary refill, neurovascular bundle appears to be intact Labs: Labs: Laboratory Tests Test 05/28/20 01:00 05/28/20 01:03 Urine Collection Type Unknown Urine Color Yellow Urine Clarity Cloudy Urine pH 7.5 (<5.0-8.0) Urine Specific [place] 1.010 (1.000-1.030) Urine Protein Negative mg/dL (NEG-TRACE) Urine Glucose (UA) Negative mg/dL (NEG) Urine Ketones (Stick) Negative mg/dL (NEG) Urine Blood Negative (NEG) Urine Nitrite Negative (NEG) Urine Bilirubin Negative (NEG) Urine Urobilinogen Dipstick 0.2 mg/dL (0.2 mg/dL) Urine Leukocyte Esterase Negative (NEG) Urine RBC Occ /HPF (0-2) Urine WBC Occ /HPF (0-4) Urine Squamous Epithelial Cells Few /LPF Urine Bacteria Few /HPF (0-FEW) Urine Mucus Slight /LPF White Blood Count 6.3 x10^3/uL (4.0-11.0) Red Blood Count 4.75 x10^6/uL (3.50-5.40) Hemoglobin 14.3 g/dL (12.0-15.5) Hematocrit 42.2 % (36.0-47.0) Mean Corpuscular Volume 89 fL (79-100) Mean Corpuscular Hemoglobin 30 pg (25-35) Mean Corpuscular Hemoglobin Concent 34 g/dL (31-37) Red Cell Distribution Width 12.9 % (11.5-14.5) Platelet Count 243 x10^3/uL (140-400) Neutrophils (%) (Auto) 56 % (31-73) Lymphocytes (%) (Auto) 32 % (24-48) Monocytes (%) (Auto) 10 % (0-9) Eosinophils (%) (Auto) 2 % (0-3) Basophils (%) (Auto) 1 % (0-3) Neutrophils # (Auto) 3.5 x10^3/uL (1.8-7.7) Lymphocytes # (Auto) 2.0 x10^3/uL (1.0-4.8) Monocytes # (Auto) 0.6 x10^3/uL (0.0-1.1) Eosinophils # (Auto) 0.1 x10^3/uL (0.0-0.7) Basophils # (Auto) 0.1 x10^3/uL (0.0-0.2) D-Dimer (Lauar) 0.35 ug/mlFEU (0.00-0.50) Sodium Level 139 mmol/L (136-145) Potassium Level 3.7 mmol/L (3.5-5.1) Chloride Level 103 mmol/L (98-107) Carbon Dioxide Level 32 mmol/L (21-32) Anion Gap 4 (6-14) Blood Urea Nitrogen 14 mg/dL (7-20) Creatinine 0.8 mg/dL (0.6-1.0) Estimated GFR (Cockcroft-Gault) 69.7 BUN/Creatinine Ratio 18 (6-20) Glucose Level 123 mg/dL (70-99) Calcium Level 9.8 mg/dL (8.5-10.1) Total Bilirubin 0.2 mg/dL (0.2-1.0) Aspartate Amino Transf (AST/SGOT) 19 U/L (15-37) Alanine Aminotransferase (ALT/SGPT) 26 U/L (14-59) Alkaline Phosphatase 68 U/L (46-116) Troponin I Quantitative < 0.017 ng/mL (0.000-0.055) OM-Myx-L-Type Natriuretic Peptide 93 pg/mL (0-449) Total Protein 7.6 g/dL (6.4-8.2) Albumin 3.9 g/dL (3.4-5.0) Albumin/Globulin Ratio 1.1 (1.0-1.7) Laboratory Tests Test 05/28/20 01:00 05/28/20 01:03 Urine Collection Type Unknown Urine Color Yellow Urine Clarity Cloudy Urine pH 7.5 (<5.0-8.0) Urine Specific [place] 1.010 (1.000-1.030) Urine Protein Negative mg/dL (NEG-TRACE) Urine Glucose (UA) Negative mg/dL (NEG) Urine Ketones (Stick) Negative mg/dL (NEG) Urine Blood Negative (NEG) Urine Nitrite Negative (NEG) Urine Bilirubin Negative (NEG) Urine Urobilinogen Dipstick 0.2 mg/dL (0.2 mg/dL) Urine Leukocyte Esterase Negative (NEG) Urine RBC Occ /HPF (0-2) Urine WBC Occ /HPF (0-4) Urine Squamous Epithelial Cells Few /LPF Urine Bacteria Few /HPF (0-FEW) Urine Mucus Slight /LPF White Blood Count 6.3 x10^3/uL (4.0-11.0) Red Blood Count 4.75 x10^6/uL (3.50-5.40) Hemoglobin 14.3 g/dL (12.0-15.5) Hematocrit 42.2 % (36.0-47.0) Mean Corpuscular Volume 89 fL (79-100) Mean Corpuscular Hemoglobin 30 pg (25-35) Mean Corpuscular Hemoglobin Concent 34 g/dL (31-37) Red Cell Distribution Width 12.9 % (11.5-14.5) Platelet Count 243 x10^3/uL (140-400) Neutrophils (%) (Auto) 56 % (31-73) Lymphocytes (%) (Auto) 32 % (24-48) Monocytes (%) (Auto) 10 % (0-9) Eosinophils (%) (Auto) 2 % (0-3) Basophils (%) (Auto) 1 % (0-3) Neutrophils # (Auto) 3.5 x10^3/uL (1.8-7.7) Lymphocytes # (Auto) 2.0 x10^3/uL (1.0-4.8) Monocytes # (Auto) 0.6 x10^3/uL (0.0-1.1) Eosinophils # (Auto) 0.1 x10^3/uL (0.0-0.7) Basophils # (Auto) 0.1 x10^3/uL (0.0-0.2) D-Dimer (Laura) 0.35 ug/mlFEU (0.00-0.50) Sodium Level 139 mmol/L (136-145) Potassium Level 3.7 mmol/L (3.5-5.1) Chloride Level 103 mmol/L (98-107) Carbon Dioxide Level 32 mmol/L (21-32) Anion Gap 4 (6-14) Blood Urea Nitrogen 14 mg/dL (7-20) Creatinine 0.8 mg/dL (0.6-1.0) Estimated GFR (Cockcroft-Gault) 69.7 BUN/Creatinine Ratio 18 (6-20) Glucose Level 123 mg/dL (70-99) Calcium Level 9.8 mg/dL (8.5-10.1) Total Bilirubin 0.2 mg/dL (0.2-1.0) Aspartate Amino Transf (AST/SGOT) 19 U/L (15-37) Alanine Aminotransferase (ALT/SGPT) 26 U/L (14-59) Alkaline Phosphatase 68 U/L (46-116) Troponin I Quantitative < 0.017 ng/mL (0.000-0.055) EP-Ajw-E-Type Natriuretic Peptide 93 pg/mL (0-449) Total Protein 7.6 g/dL (6.4-8.2) Albumin 3.9 g/dL (3.4-5.0) Albumin/Globulin Ratio 1.1 (1.0-1.7) Images: Images All labs, images, and reports were reviewed by me personally CXR Impression: Linear atelectasis at the lung bases. CT head without contrast: Reason for examination: Headache. Axial images were obtained through the brain. No contrast was administered. Exposure: One or more of the following individualized dose reduction techniques were utilized for this examination: 1. Automated exposure control 2. Adjustment of the mA and/or kV according to patient size 3. Use of iterative reconstruction technique. Ventricular systems are symmetric and not dilated. No midline shift is seen. There is no evidence of intracranial hemorrhage, infarct, mass or edema. No abnormalities of seen at the orbits. The paranasal sinuses and mastoid air cells are clear. No acute skull abnormality is seen. IMPRESSION: No acute intracranial abnormality evident. Assessment/Plan Assessment/Plan Chest pain rule out ACS Continue aspirin, consider Plavix if intermediate risk will defer this to cardiology Cardiology consulted for predischarge stress testing or left heart cath Continue nitroglycerin as needed for pain Continue beta-kelly if blood pressures allow Continue high intensity statins IV morphine as needed Consider Lovenox Maintain O2 sats between 88 to 95% Trend troponins Repeat EKG in the a.m. Continue telemetry monitoring Monitor for electrolyte abnormalities Avoid NSAIDs Justicifation of Admission Dx: Justifications for Admission: Justification of Admission Dx: Yes SEAN GUEVARA MD May 28, 2020 08:48
--- NOTE | 2020-05-28 09:23 | PDOC2 ---
NICOLE RODRÍGUEZ CIGAR BANDER HAND 05/28/20 0923: CARDIAC CONSULT DATE OF CONSULT Date of Consult DATE: 05/28/20 TIME: 09:06 REASON FOR CONSULT Reason for Consult: dizziness, arrhythmia, chest pain REFERRING PHYSICIAN Referring Physician: Hema SOURCE Source: Chart review, Patient HISTORY OF PRESENT ILLNESS HISTORY OF PRESENT ILLNESS This is a pleasant 74 yo female admitted for complains of chest pain and high blood pressure. Reports that yesterday she felt this mid chest heaviness and body tingling but no focal neurosymptoms but did have global MCKEON throbbing like his head has a vice service tech. She checked her BP and her SBP was in the 210s. She has stopped using her CPAP due to anxiey and panic. She lalso stopped her losartan couple of months ago due to low BP. She just strted taking her metoprolol a month ago and has not been checking her BP at home. No SOA, nausea or vomiting. No recent fever or chills. No recent falls or injury but still has some intermittent dizziness. PAST MEDICAL HISTORY Past Medical History Cardiovascular: HTN, Hyperlipidemia, PVCs Pulmonary: Other (SULEMAN) CENTRAL NERVOUS SYSTEM: Other (No pertinent history) GI: No pertinent hx Heme/Onc: No pertinent hx Hepatobiliary: No pertinent hx Psych: anxiety Musculoskeletal: Osteoarthritis, osteopenia Rheumatologic: Fibromyalgia Infectious disease: No pertinent hx Renal/: No pertinent hx Endocrine: Diabetes (pre) Dermatology: No pertinent hx PAST SURGICAL HISTORY Past Surgical History Arthroscopy (left knee), Cholecystectomy, Hysterectomy (vaginal), [facility] FAMILY HISTORY Family History: Hypertension SOCIAL HISTORY Smoke: <1 pack per day ALCOHOL: none Drugs: None Lives: Alone ALLERGIES ALLERGIES: Coded Allergies: Iodinated Contrast Media (Verified Allergy, Intermediate, RASH/SWELLING/SKIN TURNS RED., 05/26/15) PATIENT NEEDS PRE-MEDICATED PRIOR TO ANY SCANS REQUIRING IV CONTRAST. shellfish derived (Verified Allergy, Intermediate, RED RASH/HIVES ALL OVER BODY, 05/26/15) ROS Review of System 14 point ROS evaluated with pertinent positives noted per HPI PHYSICAL EXAM General: Alert, Oriented X3, Cooperative, No acute distress HEENT: Atraumatic, Mucous membr. moist/pink Lungs: Clear to auscultation, Normal air movement Heart: Regular rate (SR), Normal S1, Normal S2, No murmurs Abdomen: Soft, No tenderness Extremities: No cyanosis, No edema Skin: No breakdown, No significant lesion Neuro: Normal speech, Sensation intact Psych/Mental Status: Mental status NL, Mood NL MUSCULOSKELETAL: Osteoarthritic changes both hands VITALS/I&O VITALS/I&O: Vital Signs Date Time Temp Pulse Resp B/P (MAP) Pulse Ox O2 Delivery O2 Flow Rate FiO2 05/28/20 07:00 97.6 64 16 138/83 (101) 91 Room Air 97.6 I & O 05/27/20 05/27/20 05/28/20 14:59 22:59 06:59 Intake Total 0 ml Balance 0 ml LABS Lab: Laboratory Tests Test 05/28/20 01:00 05/28/20 01:03 Urine Collection Type Unknown Urine Color Yellow Urine Clarity Cloudy Urine pH 7.5 (<5.0-8.0) Urine Specific Corder 1.010 (1.000-1.030) Urine Protein Negative mg/dL (NEG-TRACE) Urine Glucose (UA) Negative mg/dL (NEG) Urine Ketones (Stick) Negative mg/dL (NEG) Urine Blood Negative (NEG) Urine Nitrite Negative (NEG) Urine Bilirubin Negative (NEG) Urine Urobilinogen Dipstick 0.2 mg/dL (0.2 mg/dL) Urine Leukocyte Esterase Negative (NEG) Urine RBC Occ /HPF (0-2) Urine WBC Occ /HPF (0-4) Urine Squamous Epithelial Cells Few /LPF Urine Bacteria Few /HPF (0-FEW) Urine Mucus Slight /LPF White Blood Count 6.3 x10^3/uL (4.0-11.0) Red Blood Count 4.75 x10^6/uL (3.50-5.40) Hemoglobin 14.3 g/dL (12.0-15.5) Hematocrit 42.2 % (36.0-47.0) Mean Corpuscular Volume 89 fL (79-100) Mean Corpuscular Hemoglobin 30 pg (25-35) Mean Corpuscular Hemoglobin Concent 34 g/dL (31-37) Red Cell Distribution Width 12.9 % (11.5-14.5) Platelet Count 243 x10^3/uL (140-400) Neutrophils (%) (Auto) 56 % (31-73) Lymphocytes (%) (Auto) 32 % (24-48) Monocytes (%) (Auto) 10 % (0-9) H Eosinophils (%) (Auto) 2 % (0-3) Basophils (%) (Auto) 1 % (0-3) Neutrophils # (Auto) 3.5 x10^3/uL (1.8-7.7) Lymphocytes # (Auto) 2.0 x10^3/uL (1.0-4.8) Monocytes # (Auto) 0.6 x10^3/uL (0.0-1.1) Eosinophils # (Auto) 0.1 x10^3/uL (0.0-0.7) Basophils # (Auto) 0.1 x10^3/uL (0.0-0.2) D-Dimer (Laura) 0.35 ug/mlFEU (0.00-0.50) Sodium Level 139 mmol/L (136-145) Potassium Level 3.7 mmol/L (3.5-5.1) Chloride Level 103 mmol/L (98-107) Carbon Dioxide Level 32 mmol/L (21-32) Anion Gap 4 (6-14) L Blood Urea Nitrogen 14 mg/dL (7-20) Creatinine 0.8 mg/dL (0.6-1.0) Estimated GFR (Cockcroft-Gault) 69.7 BUN/Creatinine Ratio 18 (6-20) Glucose Level 123 mg/dL (70-99) H Calcium Level 9.8 mg/dL (8.5-10.1) Total Bilirubin 0.2 mg/dL (0.2-1.0) Aspartate Amino Transferase (AST) 19 U/L (15-37) Alanine Aminotransferase (ALT) 26 U/L (14-59) Alkaline Phosphatase 68 U/L (46-116) Troponin I Quantitative < 0.017 ng/mL (0.000-0.055) RR-Isv-L-Type Natriuretic Peptide 93 pg/mL (0-449) Total Protein 7.6 g/dL (6.4-8.2) Albumin 3.9 g/dL (3.4-5.0) Albumin/Globulin Ratio 1.1 (1.0-1.7) Laboratory Tests 05/28/20 01:03 Laboratory Tests 05/28/20 01:03 ECHOCARDIOGRAM ECHOCARDIOGRAM <Conclusion> The left ventricle is normal size. The left ventricular systolic function is normal and the ejection fraction is within normal range. The Ejection Fraction is 50-55%. Doppler and Color Flow revealed no significant aortic regurgitation. There is no significant aortic valvular stenosis. Doppler and Color-flow revealed trace mitral regurgitation. Doppler and Color Flow revealed trace tricuspid regurgitation with an estimated PAP of 35 mmHg. DATE: 04/06/20 1218 HEART CATH HEART CATH Conclusion 1. No significant coronary artery disease 2. Mild pulmonary hypertension 3. Chronic diastolic heart failure 4. No evidence of intracardiac shunt Recommendations Medical Therapy DATE: 12/06/18 0859 ASSESSMENT/PLAN ASSESSMENT/PLAN 1. Chest pain: due to uncontrolled 2. HTN urgency: does not check BP readings at home 3. Hypertensive encephalopathy: improved 4. SULEMAN: Stopped using CPAP 2 months ago due to panic 5. Anxiety 6. Arrhythmia: known PVCs, no significant ectopies as an inpt had a recent 2 day holter 7. HLP 8. Obesity 9. IV contrast allergy: Hives 10. Hx of firbromyalgia Recommendations 1. Restart home BP meds metoprolol and add losartan and will adjust per BP trend 2. Discussed CPAP compliance. DASH diet 3. ASA/statin 4. MCOT will be considered 5. HBPM encouraged. follow up in office. ALIX JONES MD 05/28/20 1835: CARDIAC CONSULT ASSESSMENT/PLAN ASSESSMENT/PLAN Patient seen and examined. Agree with ORE PUNCHER's assessment and plan, CP with atypical features and most probably due to uncontrolled HTN MA ruled out Resume home antihypertensives and titrate for better control Recent echo showed normal LVF and cath did not show any significant CAD Agree with outpatient event monitor to rule out any significant arrhythmias Thank you for your consultation NICOLE RODRÍGUEZ APRN May 28, 2020 09:23 ALIX JONES MD May 28, 2020 18:35
[2020-05-28] MEDS ORDERED: METOPROLOL SUCC 24HR ER 25 MG TAB.ER.24H. PO SCH (10:00)
[2020-05-28] MEDS ORDERED: LOSARTAN POTASSIUM 50 MG TABLET. PO SCH (10:00)
[2020-05-28 10:16] LABS: CHOLESTEROL/HDL RATIO 4.5
[2020-05-28 10:51] VITALS: BP 143/80
--- NOTE | 2020-05-28 13:23 | NUR ---
SS following for discharge planning. SS reviewed pt chart and discussed with pt RN. Pt is from home with spouse and is currently on room air. Discharge plan is to home when medically ready. SS will continue to follow for discharge planning.
[2020-05-28 15:17] VITALS: BP 121/65
--- NOTE | 2020-05-28 16:15 | DISCH ---
DISCHARGE INSTRUCTIONS Condition on Discharge Condition on Discharge: Stable Activity After Discharge Activity Instructions for Disc: Avoid exertion Lifting Instructions after Dis: No heavy lifting Diet after Discharge Diet after Discharge: Cardiac Follow-Up Follow up with: Cardiology Follow Up With: PCP within 1 week of discharge SEAN GUEVARA MD May 28, 2020 16:15
[2020-05-28] MEDS ORDERED: LOSA-73 PO (16:37)
[2020-05-28] MEDS ORDERED: ATOR20TA58 PO (16:37)
--- NOTE | 2020-05-28 18:14 | NUR ---
Discharge Note: TIANNA ABDUL [address] Discharge instructions and discharge home medications reviewed with Patient and a copy given. All questions have been answered and understanding verbalized. The following instructions and handouts were given: Dizziness Discontinued lines and drains: Peripheral IV intact. Patient discharged to Home or Self Care with Family Member via Wheelchair
[2020-05-28] MEDS ORDERED: ATORVASTATIN CALCIUM 10 MG TABLET. PO SCH (21:00)
[2020-05-28] MEDS ORDERED: ASPIRIN CHEWABLE 81 MG TABLET. PO SCH (21:00)
[2020-05-28] MEDS ORDERED: ATORVASTATIN CALCIUM 20 MG TABLET PO SCH (21:00)
--- NOTE | 2020-05-31 14:57 | EKG ---
[facility] [address] [place] [address] Test Date: 2020-05-28 Test Time: 00:58:39 Pat Name: TIANNA ABDUL Department: Room: 206 Gender: F Saw Tailer: : 1945 Requested By: RAY JONES Order Number: [id number] Reading MD: Measurements Intervals [place] Rate: 80 P: 19 MI: 204 QRS: -8 QRSD: 92 T: 21 QT: 378 QTc: 440 Interpretive Statements SINUS RHYTHM LEFTWARD AXIS OTHERWISE NORMAL ECG RI6.01 No previous ECG available for comparison
== END 2020-05-28 18:19 | disposition home or self-care (01) ==
LOC: ER 00:32 → 2 NORTH 03:55
PROVIDERS: ADMIT Internal Medicine; ATTEND Internal Medicine
DX: R07.89 Other chest pain (principal); R42 Dizziness and giddiness; I48.91 Unspecified atrial fibrillation; I16.0 Hypertensive urgency; I10 Essential (primary) hypertension; E78.5 Hyperlipidemia, unspecified; E78.00 Pure hypercholesterolemia, unspecified; F17.210 Nicotine dependence, cigarettes, uncomplicated; F41.9 Anxiety disorder, unspecified; I67.4 Hypertensive encephalopathy; J98.11 Atelectasis; M85.80 Other specified disorders of bone density and structure, unspecified site; Z90.710 Acquired absence of both cervix and uterus; Z91.041 Radiographic dye allergy status
CPT/HCPCS: 36415; 70450; 71046; 80053; 80061; 81001; 83880; 84439; 84443; 84484; 85025; 85379; 99285; G0378; 93005; G0379

== ENCOUNTER 2020-07-18 22:01 | Emergency (ER) | payer MEDICARE ==
[~2020-07-18] VITALS: Ht 157.5 cm; Wt 81.4 kg
[~2020-07-18 22:01] MED LIST changes: +ATOR20TA58 PO; +CALC600T6 PO; +LOSA-73 PO; +METO-239 PO
[2020-07-18 22:40] LABS: BASO % 1 % (0-3); EOS # 0.1 x10^3/uL (0.0-0.7); EOS % 2 % (0-3); HEMATOCRIT 39.2 % (36.0-47.0); HEMOGLOBIN 13.3 g/dL (12.0-15.5); LYMPH # 1.5 x10^3/uL (1.0-4.8); LYMPH % 29 % (24-48); MEAN CORPUSCULAR HEMOGLOBIN 31 pg (25-35); MEAN CORPUSCULAR HGB CONC 34 g/dL (31-37); MEAN CORPUSCULAR VOLUME 90 fL (79-100); MONO # 0.5 x10^3/uL (0.0-1.1); MONO % 9 % (0-9); NEUT # 3.2 x10^3/uL (1.8-7.7); NEUT % 60 % (31-73); PLATELET COUNT 233 x10^3/uL (140-400); RED BLOOD COUNT 4.35 x10^6/uL (3.50-5.40); RED CELL DISTRIBUTION WIDTH 13.7 % (11.5-14.5); WHITE BLOOD COUNT 5.3 x10^3/uL (4.0-11.0)
[2020-07-18 22:55] LABS: CALCIUM 9.8 mg/dL (8.5-10.1); CREATININE 0.6 mg/dL (0.6-1.0); GFR 96.9
--- NOTE | 2020-07-18 23:09 | RAD ---
INDICATION: Reason: chest pain / Spl. Instructions: / History: COMPARISON: May 28, 2020 FINDINGS: 2 view of chest obtained. Cardiomediastinal silhouette is similar to prior with calcific atherosclerosis. Elevation of the right hemidiaphragm is again seen. There is some suspected calcified nodules which could be from calcified granuloma. Degenerative changes the spine. IMPRESSION: * No definite focal airspace consolidation. Electronically signed by: Antoine Goodrich MD (07/18/2020 11:06 PM) [id number]
[2020-07-19] MEDS ORDERED: LABETALOL 20 MG/4 ML DISP.SYRIN. IVP ONE
--- NOTE | 2020-07-19 02:15 | PHYS DOC ---
Past Medical History Past Medical History: A-Fib, Anxiety, Arrhythmia, Bronchitis, Depression, GERD, High Cholesterol, Hypertension, Other Additional Past Medical Histor: Sleep Apnea, PVC Past Surgical History: Cholecystectomy, Hysterectomy Smoking Status: Never Smoker Alcohol Use: None Drug Use: None General Adult EDM: Chief Complaint: HYPERTENSION HPI: HPI: Patient is a 75-year-old female who presents to the emergency room complaining of back pain that radiates into her left shoulder, generally feeling unwell, mild shortness of breath. Patient states this feels somewhat similar to the last time she was here in the emergency room. She checked her blood pressure and it was very high. She has had medication changes recently. Her physician halved her medication. She states the pain feels achy and pressure-like. Review of Systems: Review of Systems: General: Denies fever, chills, sweats, fatigue Eyes: Denies drainage, blurred vision, eye redness HENT: Denies rhinorrhea, sore throat, earache Respiratory: Denies cough, shortness of breath, wheezing Cardiac: Denies edema, palpitations, chest pain GI: Denies abdominal pain, Nausea, vomiting MSK: Denies neck pain. Reports back pain Skin: Denies rash, jaundice Neuro: Denies headache, dizziness Psychiatric: Denies SI/HI Heart Score: Risk Factors: Risk Factors: DM, Current or recent (<one month) smoker, HTN, HLP, family history of CAD, obesity. Risk Scores: Score 0 - 3: 2.5% MACE over next 6 weeks - Discharge Home Score 4 - 6: 20.3% MACE over next 6 weeks - Admit for Clinical Observation Score 7 - 10: 72.7% MACE over next 6 weeks - Early Invasive Strategies Current Medications: Current Medications Medications (Trade) Dose Ordered Sig/Caesar Start Time Stop Time Status Last Admin Dose Admin Labetalol HCl (Normodyne Iv Push) 10 mg 1X ONCE 07/19/20 00:00 07/19/20 00:01 DC 07/19/20 00:08 10 MG Lorazepam (Ativan) 1 mg 1X ONCE 07/19/20 00:00 07/19/20 00:01 DC 07/19/20 00:08 1 MG Allergies: Allergies: Allergies Coded Allergies Type Severity Reaction Last Updated Verified Iodinated Contrast Media Allergy Intermediate RASH/SWELLING/SKIN TURNS RED. 05/26/15 Yes shellfish derived Allergy Intermediate RED RASH/HIVES ALL OVER BODY 05/26/15 Yes Physical Exam: PE: General: Awake, alert, NAD. Well Nourished, well hydrated. Cooperative HEENT: Atraumatic, EOMI, PERRL, airway patent, moist oral mucosa Neck: Supple, trachea midline Respiratory: CTA bilaterally, normal effort, no wheezing/crackles CV: RRR, no murmur, cap refill <2 GI: Soft, nondistended, nontender, no masses MSK: No obvious deformities Skin: Warm, dry, intact Neuro: A&O x3, speech NL, sensory and motor grossly intact, no focal deficits Psych: Normal affect, normal mood, not suicidal or homicidal Current Patient Data: Labs: Laboratory Tests Test 07/18/20 22:30 07/19/20 01:00 White Blood Count 5.3 x10^3/uL (4.0-11.0) Red Blood Count 4.35 x10^6/uL (3.50-5.40) Hemoglobin 13.3 g/dL (12.0-15.5) Hematocrit 39.2 % (36.0-47.0) Mean Corpuscular Volume 90 fL (79-100) Mean Corpuscular Hemoglobin 31 pg (25-35) Mean Corpuscular Hemoglobin Concent 34 g/dL (31-37) Red Cell Distribution Width 13.7 % (11.5-14.5) Platelet Count 233 x10^3/uL (140-400) Neutrophils (%) (Auto) 60 % (31-73) Lymphocytes (%) (Auto) 29 % (24-48) Monocytes (%) (Auto) 9 % (0-9) Eosinophils (%) (Auto) 2 % (0-3) Basophils (%) (Auto) 1 % (0-3) Neutrophils # (Auto) 3.2 x10^3/uL (1.8-7.7) Lymphocytes # (Auto) 1.5 x10^3/uL (1.0-4.8) Monocytes # (Auto) 0.5 x10^3/uL (0.0-1.1) Eosinophils # (Auto) 0.1 x10^3/uL (0.0-0.7) Basophils # (Auto) 0.0 x10^3/uL (0.0-0.2) D-Dimer (Laura) 0.31 ug/mlFEU (0.00-0.50) Sodium Level 138 mmol/L (136-145) Potassium Level 4.0 mmol/L (3.5-5.1) Chloride Level 104 mmol/L (98-107) Carbon Dioxide Level 30 mmol/L (21-32) Anion Gap 4 (6-14) L Blood Urea Nitrogen 16 mg/dL (7-20) Creatinine 0.6 mg/dL (0.6-1.0) Estimated GFR (Cockcroft-Gault) 96.9 Glucose Level 122 mg/dL (70-99) H Calcium Level 9.8 mg/dL (8.5-10.1) Troponin I Quantitative < 0.017 ng/mL (0.000-0.055) < 0.017 ng/mL (0.000-0.055) Laboratory Tests 07/18/20 22:30 Laboratory Tests 07/18/20 22:30 Vital Signs: Vital Signs Date Time Temp Pulse Resp B/P (MAP) Pulse Ox O2 Delivery O2 Flow Rate FiO2 07/19/20 00:08 80 196/92 07/18/20 22:08 98.1 16 98 98.1 EKG: EKG: [] Radiology/Procedures: Radiology/Procedures: [] Course & Med Decision Making: Course & Med Decision Making Pertinent Labs and Imaging studies reviewed. (See chart for details) Patient is 75-year-old female presents the emergency room with back pain that radiates into her shoulder. She is hypertensive upon arrival. Her hypertension did get initially worse and she was given labetalol. She did became anxious and was also given Ativan. Cardiac work-up was ordered and was normal. Delta troponin is negative. Patient has had a heart catheterization within the last year that was normal. She was cleared by cardiology for similar symptoms at the end of April. She is feeling much better upon reevaluation. At this time patient is stable for discharge. I discussed with her that if her symptoms return she should return to the emergency room. Patient is in agreement. Patient's test results and vitals while in the ED were fully reviewed and discussed with the patient. Patient is stable and at this time does not need admission to the hospital. We have discussed strict return precautions and the importance of following up with their Primary Care Physician. Patient stated understanding and was given an opportunity to ask any questions. Patient is in agreement with plan. Dragon Disclaimer: Dragon Disclaimer: This electronic medical record was generated, in whole or in part, using a voice recognition dictation system. Departure Departure Impression: Primary Impression: Hypertension Additional Impression: Chest pain Disposition: HOME, SELF-CARE Condition: STABLE Referrals: CARMINA GONZÁLES DO (PCP) Patient Instructions: Hypertension Additional Instructions: Take a full Losartan and half Metoprolol. Please follow up with primary care. Justicifation of Admission Dx: Justifications for Admission: Justification of Admission Dx: N/A RAY JONES MD Jul 19, 2020 02:15
[2020-07-19 02:20] VITALS: BP 155/72
--- NOTE | 2020-07-19 08:24 | EKG ---
[facility] [address] [place] [address] Test Date: 2020-07-18 Test Time: 22:13:23 Pat Name: TIANNA ABDUL Department: Room: Gender: F Patient Service Technician Pst: : 1945 Requested By: RAY JONES Order Number: [id number] Reading MD: Measurements Intervals [place] Rate: 82 P: 7 VT: 204 QRS: -12 QRSD: 94 T: 29 QT: 364 QTc: 428 Interpretive Statements SINUS RHYTHM LEFTWARD AXIS OTHERWISE NORMAL ECG RI6.02 No previous ECG available for comparison
== END 2020-07-19 02:35 | disposition home or self-care (01) ==
LOC: ER 22:01
DX: I10 Essential (primary) hypertension (principal); R07.89 Other chest pain; R06.02 Shortness of breath; M54.9 Dorsalgia, unspecified; I48.20 Chronic atrial fibrillation, unspecified; F41.9 Anxiety disorder, unspecified; F32.9 Major depressive disorder, single episode, unspecified; K21.9 Gastro-esophageal reflux disease without esophagitis; E78.00 Pure hypercholesterolemia, unspecified; Z90.710 Acquired absence of both cervix and uterus; Z90.49 Acquired absence of other specified parts of digestive tract; Z91.013 Allergy to seafood; Z91.040 Latex allergy status
CPT/HCPCS: 36415; 71046; 80048; 84484; 85025; 85379; 93005; 96374; 99285; J3490

== ENCOUNTER 2020-07-26 11:11 | Emergency (ER) | payer MEDICARE ==
[~2020-07-26] VITALS: Ht 157.5 cm; Wt 79.0 kg
--- NOTE | 2020-07-26 12:20 | RAD ---
Single AP view of the chest. Comparison: 07/18/2020. Indication: The Findings: There is stable elevation of the right hemidiaphragm. The heart is not enlarged. There is no pneumothorax or effusion. No air space or interstitial disease. Impression: 1. No acute cardiopulmonary process. Electronically signed by: Renato Mason MD (07/26/2020 12:17 PM) [id number]
--- NOTE | 2020-07-26 12:21 | RAD ---
Axial CT images of the head were obtained without IV contrast. Comparison: 05/28/2020. Indication: Weakness Findings: No mass effect or hemorrhage is seen. The ventricles are not enlarged or effaced. No midline shift is noted. There is no intra or extra axial fluid collection. No bony or soft tissue abnormality is seen. The visualized paranasal sinuses are clear. Impression: 1. No acute intracranial process seen on non- contrast head CT. Exposure: One or more of the following individualized dose reduction techniques were utilized for this examination: 1. Automated exposure control 2. Adjustment of the mA and/or kV according to patient size 3. Use of iterative reconstruction technique Electronically signed by: Renato Mason MD (07/26/2020 12:18 PM) [id number]
[2020-07-26 12:38] LABS: BASO % 1 % (0-3); EOS # 0.1 x10^3/uL (0.0-0.7); EOS % 2 % (0-3); HEMATOCRIT 39.5 % (36.0-47.0); HEMOGLOBIN 13.5 g/dL (12.0-15.5); LYMPH # 1.4 x10^3/uL (1.0-4.8); LYMPH % 28 % (24-48); MEAN CORPUSCULAR HEMOGLOBIN 31 pg (25-35); MEAN CORPUSCULAR HGB CONC 34 g/dL (31-37); MEAN CORPUSCULAR VOLUME 90 fL (79-100); MONO # 0.6 x10^3/uL (0.0-1.1); MONO % 11 % (0-9); NEUT % 59 % (31-73); PLATELET COUNT 235 x10^3/uL (140-400); RED BLOOD COUNT 4.39 x10^6/uL (3.50-5.40); RED CELL DISTRIBUTION WIDTH 13.5 % (11.5-14.5); WHITE BLOOD COUNT 5.1 x10^3/uL (4.0-11.0)
[2020-07-26 12:49] LABS: CALCIUM 9.6 mg/dL (8.5-10.1); CREATININE 0.6 mg/dL (0.6-1.0); GFR 96.9; POTASSIUM 3.9 mmol/L (3.5-5.1)
[2020-07-26 12:52] LABS: BILIRUBIN,URINE NEGATIVE (NEG); CLARITY,URINE CLEAR; COLOR,URINE YELLOW; NITRITE,URINE NEGATIVE (NEG); PH,URINE 6.5 (<5.0-8.0); PROTEIN,URINE NEGATIVE (NEG-TRACE); UROBILINOGEN,URINE 0.2 mg/dL (0.2 mg/dL)
[2020-07-26 12:55] LABS: ALBUMIN 3.6 g/dL (3.4-5.0); MAGNESIUM 1.9 mg/dL (1.8-2.4); TOTAL BILIRUBIN 0.3 mg/dL (0.2-1.0); TOTAL PROTEIN 7.1 g/dL (6.4-8.2)
[2020-07-26 12:56] LABS: PROTHROMBIN TIME PATIENT 12.7 SEC (11.7-14.0)
[2020-07-26 12:57] LABS: BARBITURATES NEG (NEG); BENZODIAZEPINES NEG (NEG); CANNABINOIDS NEG (NEG); COCAINE NEG (NEG); METHADONE NEG (NEG); OPIATES NEG (NEG); PHENCYCLIDINE NEG (NEG)
[2020-07-26 13:00] LABS: AMPHETAMINE/METHAMPHETAMINE NEG (NEG)
[2020-07-26 13:06] LABS: SQUAMOUS EPITHELIAL CELL,UR FEW /LPF
[2020-07-26 13:07] LABS: BACTERIA,URINE 0 /HPF (0-FEW); RBC,URINE 0 /HPF (0-2); WBC,URINE 0 /HPF (0-4)
[2020-07-26 15:05] VITALS: BP 170/79
--- NOTE | 2020-07-26 15:31 | PHYS DOC ---
Past Medical History Past Medical History: A-Fib, Anxiety, Arrhythmia, Bronchitis, Depression, GERD, High Cholesterol, Hypertension, Other Additional Past Medical Histor: Sleep Apnea, PVC Past Surgical History: Cholecystectomy, Hysterectomy Additional Past Surgical Histo: L KNEE Smoking Status: Never Smoker Alcohol Use: None Drug Use: None General Adult EDM: Chief Complaint: NEURO SYMPTOMS/DEFICITS HPI: HPI: Patient is a 75 year old female with history of A. fib, anxiety, depression, high blood pressure, high cholesterol, bronchitis, who presents to the ED today to be evaluated for multiple complaints. Patient reports being fatigued for 2 weeks. She states she has had left-sided neck pain, arm pain, left-sided chest pain, back pain, symptoms have been going on for weeks. She states she has been seen in the emergency room multiple times with the symptoms and on her work-up was negative for any acute findings, she even had a negative cardiac catheterization around November 2019. She states she gets occasional headaches, she rates her pain to the left side as mild and intermittent, denies anything specifically exacerbating or relieving her pain. She states she has trouble finding words, this is been going on for 8 days. Patient is in the ED alert oriented speaking in full sentences with no signs of stroke. She states her PCP was the one who sent her to the ED to be worked up for stroke. Review of Systems: Review of Systems: Constitutional: Denies fever or chills. [] Eyes: Denies change in visual acuity. [] HENT: Denies nasal congestion or sore throat. [] Respiratory: Denies cough or shortness of breath. [] Cardiovascular: Denies chest pain or edema. [] GI: Denies abdominal pain, nausea, vomiting, bloody stools or diarrhea. [] : Denies dysuria. [] Musculoskeletal: Reports left-sided pain Integument: Denies rash. [] Neurologic: Reports left-sided headache, denies focal weakness or sensory changes. [] Psychiatric: Denies depression or anxiety. [] Heart Score: HEART Score for Chest Pain: HEART Score for Chest Pain Response (Comments) Value History Slighlty/Non-Suspicious 0 ECG Normal 0 Age > 65 2 Risk Factors >3 Risk Factors or Hx CAD 2 Troponin < Normal Limit 0 Total 4 Risk Factors: Risk Factors: DM, Current or recent (<one month) smoker, HTN, HLP, family history of CAD, obesity. Risk Scores: Score 0 - 3: 2.5% MACE over next 6 weeks - Discharge Home Score 4 - 6: 20.3% MACE over next 6 weeks - Admit for Clinical Observation Score 7 - 10: 72.7% MACE over next 6 weeks - Early Invasive Strategies Allergies: Allergies: Allergies Coded Allergies Type Severity Reaction Last Updated Verified Iodinated Contrast Media Allergy Intermediate RASH/SWELLING/SKIN TURNS RED. 05/26/15 Yes shellfish derived Allergy Intermediate RED RASH/HIVES ALL OVER BODY 05/26/15 Yes Physical Exam: PE: Constitutional: Well developed, well nourished, no acute distress, non-toxic appearance. [] HENT: Normocephalic, atraumatic, bilateral external ears normal, oropharynx moist, no oral exudates, nose normal. [] Eyes: PERRLA, EOMI, conjunctiva normal, no discharge. [] Neck: Normal range of motion, no tenderness, supple, no stridor. [] Cardiovascular:Heart rate regular rhythm, no murmur [] Lungs & Thorax: Bilateral breath sounds clear to auscultation [] Abdomen: Bowel sounds normal, soft, no tenderness, no masses, no pulsatile masses. [] Skin: Warm, dry, no erythema, no rash. [] Back: No tenderness, no CVA tenderness. [] Extremities: No tenderness, no cyanosis, no clubbing, ROM intact, no edema. [] Neurologic: Alert and oriented X 3, normal motor function, normal sensory function, no focal deficits noted. Cranial nerves II through XII intact Psychologic: Flat affect Current Patient Data: Labs: Laboratory Tests Test 07/26/20 12:17 07/26/20 12:25 Urine Collection Type Unknown Urine Color Yellow Urine Clarity Clear Urine pH 6.5 (<5.0-8.0) Urine Specific Petty <=1.005 (1.000-1.030) Urine Protein Negative mg/dL (NEG-TRACE) Urine Glucose (UA) Negative mg/dL (NEG) Urine Ketones (Stick) Negative mg/dL (NEG) Urine Blood Negative (NEG) Urine Nitrite Negative (NEG) Urine Bilirubin Negative (NEG) Urine Urobilinogen Dipstick 0.2 mg/dL (0.2 mg/dL) Urine Leukocyte Esterase Negative (NEG) Urine RBC 0 /HPF (0-2) Urine WBC 0 /HPF (0-4) Urine Squamous Epithelial Cells Few /LPF Urine Bacteria 0 /HPF (0-FEW) Urine Mucus Slight /LPF Urine Opiates Screen Neg (NEG) Urine Methadone Screen Neg (NEG) Urine Barbiturates Neg (NEG) Urine Phencyclidine Screen Neg (NEG) Urine Amphetamine/Methamphetamine Neg (NEG) Urine Benzodiazepines Screen Neg (NEG) Urine Cocaine Screen Neg (NEG) Urine Cannabinoids Screen Neg (NEG) Urine Ethyl Alcohol Neg (NEG) White Blood Count 5.1 x10^3/uL (4.0-11.0) Red Blood Count 4.39 x10^6/uL (3.50-5.40) Hemoglobin 13.5 g/dL (12.0-15.5) Hematocrit 39.5 % (36.0-47.0) Mean Corpuscular Volume 90 fL (79-100) Mean Corpuscular Hemoglobin 31 pg (25-35) Mean Corpuscular Hemoglobin Concent 34 g/dL (31-37) Red Cell Distribution Width 13.5 % (11.5-14.5) Platelet Count 235 x10^3/uL (140-400) Neutrophils (%) (Auto) 59 % (31-73) Lymphocytes (%) (Auto) 28 % (24-48) Monocytes (%) (Auto) 11 % (0-9) H Eosinophils (%) (Auto) 2 % (0-3) Basophils (%) (Auto) 1 % (0-3) Neutrophils # (Auto) 3.0 x10^3/uL (1.8-7.7) Lymphocytes # (Auto) 1.4 x10^3/uL (1.0-4.8) Monocytes # (Auto) 0.6 x10^3/uL (0.0-1.1) Eosinophils # (Auto) 0.1 x10^3/uL (0.0-0.7) Basophils # (Auto) 0.0 x10^3/uL (0.0-0.2) Prothrombin Time 12.7 SEC (11.7-14.0) Prothrombin Time INR 1.0 (0.8-1.1) Activated Partial Thromboplast Time 27 SEC (24-38) Sodium Level 142 mmol/L (136-145) Potassium Level 3.9 mmol/L (3.5-5.1) Chloride Level 105 mmol/L (98-107) Carbon Dioxide Level 36 mmol/L (21-32) H Anion Gap 1 (6-14) L Blood Urea Nitrogen 13 mg/dL (7-20) Creatinine 0.6 mg/dL (0.6-1.0) Estimated GFR (Cockcroft-Gault) 96.9 BUN/Creatinine Ratio 22 (6-20) H Glucose Level 76 mg/dL (70-99) Calcium Level 9.6 mg/dL (8.5-10.1) Magnesium Level 1.9 mg/dL (1.8-2.4) Total Bilirubin 0.3 mg/dL (0.2-1.0) Aspartate Amino Transferase (AST) 19 U/L (15-37) Alanine Aminotransferase (ALT) 25 U/L (14-59) Alkaline Phosphatase 69 U/L (46-116) Troponin I Quantitative < 0.017 ng/mL (0.000-0.055) GH-Hyw-S-Type Natriuretic Peptide 233 pg/mL (0-449) Total Protein 7.1 g/dL (6.4-8.2) Albumin 3.6 g/dL (3.4-5.0) Albumin/Globulin Ratio 1.0 (1.0-1.7) Thyroid Stimulating Hormone (TSH) 1.397 uIU/mL (0.358-3.74) Laboratory Tests 07/26/20 12:25 Laboratory Tests 07/26/20 12:25 Vital Signs: Vital Signs Date Time Temp Pulse Resp B/P (MAP) Pulse Ox O2 Delivery O2 Flow Rate FiO2 07/26/20 13:35 52 16 157/72 (100) 92 Room Air 07/26/20 11:18 98.2 98.2 EKG: EKG: [] Radiology/Procedures: Radiology/Procedures: []PROCEDURE: PORTABLE CHEST 1V Single AP view of the chest. Comparison: 07/18/2020. Indication: The Findings: There is stable elevation of the right hemidiaphragm. The heart is not enlarged. There is no pneumothorax or effusion. No air space or interstitial disease. Impression: 1. No acute cardiopulmonary process. Electronically signed by: Oswaldo Azevedo MD (07/26/2020 12:17 PM) [id number] DICTATED and SIGNED BY: OSWALDO AZEVEDO MD DATE: 07/26/20 1217 PROCEDURE: CT HEAD WO CONTRAST Axial CT images of the head were obtained without IV contrast. Comparison: 05/28/2020. Indication: Weakness Findings: No mass effect or hemorrhage is seen. The ventricles are not enlarged or effaced. No midline shift is noted. There is no intra or extra axial fluid collection. No bony or soft tissue abnormality is seen. The visualized paranasal sinuses are clear. Impression: 1. No acute intracranial process seen on non- contrast head CT. Exposure: One or more of the following individualized dose reduction techniques were utilized for this examination: 1. Automated exposure control 2. Adjustment of the mA and/or kV according to patient size 3. Use of iterative reconstruction technique Electronically signed by: Oswaldo Azevedo MD (07/26/2020 12:18 PM) [id number] DICTATED and SIGNED BY: OSWALDO AZEVEDO MD DATE: 07/26/20 1218 Course & Med Decision Making: Course & Med Decision Making Pertinent Labs and Imaging studies reviewed. (See chart for details) This is a 75-year-old female patient presented to the ED today with multiple complaints, see HPI. Patient has complaints of left-sided pain, headache, fatigue, no other complaints. Has been worked up for some of these complaints. She was sent to the ED today by the PCP to rule out CVA. Her stroke scale is negative. Her CT of the head is negative, her labs are negative for any acute findings. She was discharged to home. Dragon Disclaimer: DragInverted Edge Disclaimer: This electronic medical record was generated, in whole or in part, using a voice recognition dictation system. Departure Departure Impression: Primary Impression: Fatigue Qualified Codes: R53.83 - Other fatigue Additional Impressions: HTN (hypertension) Qualified Codes: I10 - Essential (primary) hypertension Musculoskeletal pain Person under investigation for COVID-19 Disposition: HOME, SELF-CARE Condition: STABLE Referrals: CARMINA GONZÁLES DO (PCP) follow up in the course of this week Patient Instructions: Fatigue, Hypertension, Musculoskeletal Pain Additional Instructions: Your evaluated in the emergency room, your CAT scan of the head is negative for any acute findings, your lab, chest x-ray, EKG and urine analysis are negative for any acute findings. You were tested for COVID19. Please quarantine yourself until you hear from the hospital with results. Maintain good hand hygiene, wear your mask. Follow-up with your doctor in 1 to 2 weeks NIHSS Stroke Scale NIH Stroke Scale: NIH Stroke Scale Response (Comments) Value Level of Consciousness: 0 Alert/Responsive 0 LOC Questions: 0 Answers both correctly 0 Best Gaze: 0 Normal 0 Visual: 0 No visual loss 0 Facial Palsy: 0 Normal, symmetrical 0 Motor - Left Arm 0 No drift 0 Motor - Right Arm 0 No drift 0 Motor - Left Leg 0 No drift 0 Motor: Right Leg 0 No drift 0 Limb Ataxia: 0 Absent 0 Sensory: 0 No loss 0 Best Language: 0 Normal 0 Dysathria: 0 Normal 0 Extinction and Inattention: 0 Normal 0 Total 0 Justicifation of Admission Dx: Justifications for Admission: Justification of Admission Dx: N/A VIOLA MESA APRN Jul 26, 2020 15:31
--- NOTE | 2020-07-28 01:34 | EKG ---
[facility] [address] [place] [address] Test Date: 2020-07-26 Test Time: 12:14:36 Pat Name: TIANNA ABDUL Department: Room: Gender: F Trustee Of Estate: : 1945 Requested By: VIOLA MESA Order Number: [id number] Reading MD: Gee Calloway Measurements Intervals [place] Rate: 55 P: 47 MA: 196 QRS: -6 QRSD: 90 T: 22 QT: 412 QTc: 396 Interpretive Statements SINUS RHYTHM LEFTWARD AXIS Electronically Signed On 07-28-2020 12:27:49 CDT by Gee Calloway
--- NOTE | 2020-07-28 09:42 | NUR ---
IP: Informed pt of negative COVID test. Pt verbalized understanding.
== END 2020-07-26 15:58 | disposition home or self-care (01) ==
LOC: ER 11:11
DX: R53.83 Other fatigue (principal); Z20.828 Contact with and (suspected) exposure to other viral communicable diseases; M54.2 Cervicalgia; R07.89 Other chest pain; I10 Essential (primary) hypertension; I48.20 Chronic atrial fibrillation, unspecified; F41.9 Anxiety disorder, unspecified; K21.9 Gastro-esophageal reflux disease without esophagitis; F32.9 Major depressive disorder, single episode, unspecified; E78.00 Pure hypercholesterolemia, unspecified; Z90.710 Acquired absence of both cervix and uterus; Z90.49 Acquired absence of other specified parts of digestive tract; Z98.890 Other specified postprocedural states
CPT/HCPCS: 36415; 70450; 71045; 80053; 80307; 81001; 83735; 83880; 84443; 84484; 85025; 85610; 85730; 93005; 99285; U0003

== ENCOUNTER 2020-11-18 15:34 | Inpatient (IN) | payer MEDICARE ==
[~2020-11-18] VITALS: Ht 157.5 cm; Wt 75.7 kg
[~2020-11-18 15:34] MED LIST changes: -CALC600T6 PO; +CALC600T60 PO; -LISI-338 PO; +LISI-517 PO
[2020-11-18 16:51] LABS: BASO % 0 % (0-3); EOS # 0.1 x10^3/uL (0.0-0.7); EOS % 1 % (0-3); HEMATOCRIT 40.1 % (36.0-47.0); HEMOGLOBIN 13.3 g/dL (12.0-15.5); LYMPH # 1.7 x10^3/uL (1.0-4.8); LYMPH % 25 % (24-48); MEAN CORPUSCULAR HEMOGLOBIN 30 pg (25-35); MEAN CORPUSCULAR HGB CONC 33 g/dL (31-37); MEAN CORPUSCULAR VOLUME 90 fL (79-100); MONO # 0.5 x10^3/uL (0.0-1.1); MONO % 7 % (0-9); NEUT # 4.3 x10^3/uL (1.8-7.7); NEUT % 66 % (31-73); PLATELET COUNT 229 x10^3/uL (140-400); RED BLOOD COUNT 4.46 x10^6/uL (3.50-5.40); RED CELL DISTRIBUTION WIDTH 12.8 % (11.5-14.5); WHITE BLOOD COUNT 6.6 x10^3/uL (4.0-11.0)
[2020-11-18 16:53] LABS: BILIRUBIN,URINE NEGATIVE (NEG); CLARITY,URINE CLEAR; COLOR,URINE YELLOW; NITRITE,URINE NEGATIVE (NEG); PH,URINE 5.5 (<5.0-8.0); PROTEIN,URINE NEGATIVE (NEG-TRACE); UROBILINOGEN,URINE 0.2 mg/dL (0.2 mg/dL)
[2020-11-18 16:59] LABS: PROTHROMBIN TIME PATIENT 13.2 SEC (11.7-14.0)
[2020-11-18 17:01] LABS: BARBITURATES NEG (NEG); BENZODIAZEPINES NEG (NEG); CANNABINOIDS NEG (NEG); COCAINE NEG (NEG); METHADONE NEG (NEG); OPIATES NEG (NEG); PHENCYCLIDINE NEG (NEG)
[2020-11-18 17:05] LABS: BACTERIA,URINE FEW /HPF (0-FEW); RBC,URINE 0 /HPF (0-2)
[2020-11-18 17:07] LABS: AMPHETAMINE/METHAMPHETAMINE NEG (NEG)
--- NOTE | 2020-11-18 17:19 | RAD ---
EXAM: Chest, single view. HISTORY: Weakness. COMPARISON: 07/26/2020 FINDINGS: A frontal view of the chest is obtained. There is mild elevation of the right hemidiaphragm . There is no infiltrate, pleural effusion or pneumothorax. The heart is normal in size. There is a c alcified granuloma within the right lower lung. IMPRESSION: 1. Mild elevation of the right hemidiaphragm. 2. No acute pulmonary finding. Electronically signed by: Jessica Ramos MD (11/18/2020 5:17 PM) [id number]
[2020-11-18 17:22] LABS: CALCIUM 9.6 mg/dL (8.5-10.1); CREATININE 0.7 mg/dL (0.6-1.0); GFR 81.1; POTASSIUM 3.9 mmol/L (3.5-5.1)
[2020-11-18 17:27] LABS: ALBUMIN 3.8 g/dL (3.4-5.0); ALBUMIN/GLOBULIN RATIO 1.1 (1.0-1.7); MAGNESIUM 1.9 mg/dL (1.8-2.4); TOTAL BILIRUBIN 0.3 mg/dL (0.2-1.0); TOTAL PROTEIN 7.2 g/dL (6.4-8.2)
--- NOTE | 2020-11-18 17:31 | RAD ---
INDICATION: Reason: weakness / Spl. Instructions: / History: COMPARISON: July 26, 2020 TECHNIQUE: Axial CT images obtained through the head without intravenous contrast. One or more of the following individualized dose reduction techniques were utilized for this examinat ion: 1. Automated exposure control; 2. Adjustment of the mA and/or kV according to patient size; 3 . Use of iterative reconstruction technique. FINDINGS: No intracranial hemorrhage. No midline shift. Basal cisterns patents. Ventricles and sulci are globally prominent. No acute osseous abnormality. Orbits and paranasal sinuses unremarkable. Scattered foci of low attenuation within the white matter. IMPRESSION: 1. No acute intracranial hemorrhage. 2. Scattered regions of low attenuation within the white matter. Non-specific in nature but frequen tly secondary to chronic small vessel ischemic disease. 3. Prominence of ventricles and sulci which is frequently secondary to age related volume loss. Electronically signed by: Antoine Goodrich MD (11/18/2020 5:28 PM) [id number]
--- NOTE | 2020-11-18 19:29 | PDOC1 ---
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 Patient is complaining of generalized weakness. She states symptoms began after eating lunch. She states she had lunch stood up from sitting position she became dizzy and felt weak. She states she did not pass out. She states she was trying to walk to her car. She states she got to the car and got more weak. She states she felt her chest was heavy specifically on the left side. She states her left upper arm was also heavy with tingling to the left upper extremity as well as lower extremity. Denies any headache, active chest pain or shortness of breath. Denies anything specifically exacerbating or relieving her symptoms. Her is bedside notes that ever since she stopped wearing her CPAP at n ight she was noted stopping breathing frequently and experiences the same chest discomfort, palpitations, and feeling of doom and malaise as she did after she left lunch today. CT head and chest radiograph reviewed with no acute abnormality. Labs including troponin within normal limits. SBP > 190mmHg. On further review she notes she has been having daytime sleepiness and forgot to take her anti- hypertensives today. Admitted for further treatment Past Medical History Cardiovascular: HTN, Hyperlipidemia Pulmonary: Other CENTRAL NERVOUS SYSTEM: Other GI: No pertinent hx Heme/Onc: No pertinent hx Hepatobiliary: No pertinent hx Psych: No pertinent hx Musculoskeletal: Osteoarthritis Rheumatologic: Fibromyalgia Infectious disease: No pertinent hx Renal/: No pertinent hx Endocrine: Diabetes Past Surgical History Past Surgical History: Arthroscopy, Cholecystectomy, Hysterectomy Family History Family History: Hypertension Social History Smoke: No ALCOHOL: none Drugs: None Current Medications Current Medications Active Scripts Active Atorvastatin Calcium 20 Mg Tablet 20 Mg PO QHS 30 Days Cozaar (Losartan Potassium) 50 Mg Tablet 50 Mg PO DAILY 30 Days Reported Pravastatin Sodium 20 Mg Tablet 20 Mg PO HS Metoprolol Succinate ( Xl ) (Metoprolol Succinate) 25 Mg Tab.er.24h 25 Mg PO DAILY Calcium (Calcium Carbonate) 600 Mg Tablet 600 Mg PO HS Citalopram Hbr (Citalopram Hydrobromide) 20 Mg Tablet 20 Mg PO HS Aspirin 81 Mg Tab.chew 81 Mg PO HS Multivitamins (Multivitamin) 1 Each Tablet 1 Each PO HS Prilosec Otc (Omeprazole Magnesium) 20 Mg Tablet.dr 20 Mg PO HS Allergies Allergies: Coded Allergies: Iodinated Contrast Media (Verified Allergy, Intermediate, RASH/SWELLING/SKIN TURNS RED., 05/26/15) PATIENT NEEDS PRE-MEDICATED PRIOR TO ANY SCANS REQUIRING IV CONTRAST. shellfish derived (Verified Allergy, Intermediate, RED RASH/HIVES ALL OVER BODY, 05/26/15) ROS General: YES: Fatigue, Malaise; No: Chills, Night Sweats, Appetite, Other PSYCHOLOGICAL ROS: YES: Anxiety, Depression; No: Behavioral Disorder, Concentration difficultie, Decreased libido, Disorientation, Hallucinations, Hostility, Irritablity, Memory difficulties, Mood Swings, Obsessive thoughts, Physical abuse, Sexual abuse, Sleep disturbances, Suicidal ideation, Other Eyes: No Blurry vision, No Decreased vision, No Double vision, No Dry eyes, No Excessive tearing, No Eye Pain, No Itchy Eyes, No Loss of vision, No Photophobia, No Scotomata, No Uses contacts, No Uses glasses, No Other HEENT: No: Heacaches, Visual Changes, Hearing change, Nasal congestion, Nasal discharge, Oral lesions, Sinus pain, Sore Throat, Epistaxis, Sneezing, Snoring, Tinnitus, Vertigo, Vocal changes, Other ALLERGY AND IMMUNOLOGY: No: Hives, Insect Bite Sensitivity, Itchy/Watery Eyes, Nasal Congestion, Post Nasal Drip, Seasonal Allergies, Other Hematological and Lymphatic: No: Bleeding Problems, Blood Clots, Blood Transfusions, Brusing, Night Sweats, Pallor, Swollen Lymph Nodes, Other ENDOCRINE: No: Breast Changes, Galactorrhea, Hair Pattern Changes, Hot Flashes, Malaise/lethargy, Mood Swings, Palpitations, Polydipsia/polyuria, Skin Changes, Temperature Intolerance, Unexpected Weight Changes, Other Breast: No New/Changing Breast Lumps, No Nipple changes, No Nipple discharge, No Other Respiratory: YES: Shortness of breath; No: Cough, Hemoptysis, Orthopnea, Pleuritic Pain, SOB with excertion, Sputum Changes, Stridor, Tachypnea, Wheezing, Other Cardiovascular: yes Chest Pain, yes Palpitations; No Orthopnea, No Paroxysmal Noc. Dyspnea, No Edema, No Lt Headedness, No Other Gastrointestinal: No Nausea, No Vomiting, No Abdominal Pain, No Diarrhea, No Constipation, No Melena, No Hematochezia, No Other Genitourinary: No Dysuria, No Frequency, No Incontinence, No Hematuria, No Retention, No Discharge, No Urgency, No Pain, No Flank Pain, No Other, No , No , No , No , No , No , No Musculoskeletal: No Gait Disturbance, No Joint Pain, No Joint Stiffness, No Joint Swelling, No Muscle Pain, No Muscular Weakness, No Pain In:, No Swelling In:, No Other Neurological: No Behavorial Changes, No Bowel/Bladder ControlChng, No Confusion, No Dizziness, No Gait Disturbance, No Headaches, No Impaired Coord/balance, No Memory Loss, No Numbness/Tingling, No Seizures, No Speech Problems, No Tremors, No Visual Changes, No Weakness, No Other Skin: No Dry Skin, No Eczema, No Hair Changes, No Lumps, No Mole Changes, No Mottling, No Nail Changes, No Pruritus, No Rash, No Skin Lesion Changes, No Other, No Acne Physical Exam General: Alert, Oriented X3, Cooperative, mild distress HEENT: Atraumatic, PERRLA, EOMI, Mucous membr. moist/pink Lungs: Clear to auscultation, Normal air movement Heart: S1S2, RRR, no thrills, no rubs, no gallops, no murmurs Abdomen: Normal bowel sounds, Soft, No tenderness, No hepatosplenomegaly, No masses Rectal Exam: not examined Extremities: No clubbing, No cyanosis, No edema, Normal pulses, No tenderness/swelling Skin: No rashes, No breakdown, No significant lesion Neuro: Normal gait, Normal speech, Strength at 5/5 X4 ext, Normal tone, Sensation intact, Cranial nerves 3-12 NL, Reflexes 2+ Psych/Mental Status: Mental status NL, Mood NL Vitals Vitals Vital Signs Date Time Temp Pulse Resp B/P (MAP) Pulse Ox O2 Delivery O2 Flow Rate FiO2 11/18/20 18:55 69 94 11/18/20 16:04 98.4 18 196/86 (122) Room Air 98.4 Labs Labs Laboratory Tests Test 11/18/20 16:20 White Blood Count 6.6 x10^3/uL (4.0-11.0) Red Blood Count 4.46 x10^6/uL (3.50-5.40) Hemoglobin 13.3 g/dL (12.0-15.5) Hematocrit 40.1 % (36.0-47.0) Mean Corpuscular Volume 90 fL (79-100) Mean Corpuscular Hemoglobin 30 pg (25-35) Mean Corpuscular Hemoglobin Concent 33 g/dL (31-37) Red Cell Distribution Width 12.8 % (11.5-14.5) Platelet Count 229 x10^3/uL (140-400) Neutrophils (%) (Auto) 66 % (31-73) Lymphocytes (%) (Auto) 25 % (24-48) Monocytes (%) (Auto) 7 % (0-9) Eosinophils (%) (Auto) 1 % (0-3) Basophils (%) (Auto) 0 % (0-3) Neutrophils # (Auto) 4.3 x10^3/uL (1.8-7.7) Lymphocytes # (Auto) 1.7 x10^3/uL (1.0-4.8) Monocytes # (Auto) 0.5 x10^3/uL (0.0-1.1) Eosinophils # (Auto) 0.1 x10^3/uL (0.0-0.7) Basophils # (Auto) 0.0 x10^3/uL (0.0-0.2) Prothrombin Time 13.2 SEC (11.7-14.0) Prothromb Time International Ratio 1.0 (0.8-1.1) Activated Partial Thromboplast Time 30 SEC (24-38) Urine Collection Type Unknown Urine Color Yellow Urine Clarity Clear Urine pH 5.5 (<5.0-8.0) Urine Specific [place] >=1.030 (1.000-1.030) Urine Protein Negative mg/dL (NEG-TRACE) Urine Glucose (UA) Negative mg/dL (NEG) Urine Ketones (Stick) 15 mg/dL (NEG) Urine Blood Negative (NEG) Urine Nitrite Negative (NEG) Urine Bilirubin Negative (NEG) Urine Urobilinogen Dipstick 0.2 mg/dL (0.2 mg/dL) Urine Leukocyte Esterase Negative (NEG) Urine RBC 0 /HPF (0-2) Urine WBC 1-4 /HPF (0-4) Urine Bacteria Few /HPF (0-FEW) Urine Mucus Marked /LPF Sodium Level 140 mmol/L (136-145) Potassium Level 3.9 mmol/L (3.5-5.1) Chloride Level 102 mmol/L (98-107) Carbon Dioxide Level 32 mmol/L (21-32) Anion Gap 6 (6-14) Blood Urea Nitrogen 15 mg/dL (7-20) Creatinine 0.7 mg/dL (0.6-1.0) Estimated GFR (Cockcroft-Gault) 81.1 BUN/Creatinine Ratio 21 (6-20) Glucose Level 190 mg/dL (70-99) Calcium Level 9.6 mg/dL (8.5-10.1) Magnesium Level 1.9 mg/dL (1.8-2.4) Total Bilirubin 0.3 mg/dL (0.2-1.0) Aspartate Amino Transf (AST/SGOT) 21 U/L (15-37) Alanine Aminotransferase (ALT/SGPT) 26 U/L (14-59) Alkaline Phosphatase 64 U/L (46-116) Troponin I Quantitative < 0.017 ng/mL (0.000-0.055) NX-Lsx-V-Type Natriuretic Peptide 155 pg/mL (0-449) Total Protein 7.2 g/dL (6.4-8.2) Albumin 3.8 g/dL (3.4-5.0) Albumin/Globulin Ratio 1.1 (1.0-1.7) Lipase 99 U/L (73-393) Thyroid Stimulating Hormone (TSH) 2.228 uIU/mL (0.358-3.74) Urine Opiates Screen Neg (NEG) Urine Methadone Screen Neg (NEG) Urine Barbiturates Neg (NEG) Urine Phencyclidine Screen Neg (NEG) Urine Amphetamine/Methamphetamine Neg (NEG) Urine Benzodiazepines Screen Neg (NEG) Urine Cocaine Screen Neg (NEG) Urine Cannabinoids Screen Neg (NEG) Urine Ethyl Alcohol Neg (NEG) Laboratory Tests Test 11/18/20 16:20 White Blood Count 6.6 x10^3/uL (4.0-11.0) Red Blood Count 4.46 x10^6/uL (3.50-5.40) Hemoglobin 13.3 g/dL (12.0-15.5) Hematocrit 40.1 % (36.0-47.0) Mean Corpuscular Volume 90 fL (79-100) Mean Corpuscular Hemoglobin 30 pg (25-35) Mean Corpuscular Hemoglobin Concent 33 g/dL (31-37) Red Cell Distribution Width 12.8 % (11.5-14.5) Platelet Count 229 x10^3/uL (140-400) Neutrophils (%) (Auto) 66 % (31-73) Lymphocytes (%) (Auto) 25 % (24-48) Monocytes (%) (Auto) 7 % (0-9) Eosinophils (%) (Auto) 1 % (0-3) Basophils (%) (Auto) 0 % (0-3) Neutrophils # (Auto) 4.3 x10^3/uL (1.8-7.7) Lymphocytes # (Auto) 1.7 x10^3/uL (1.0-4.8) Monocytes # (Auto) 0.5 x10^3/uL (0.0-1.1) Eosinophils # (Auto) 0.1 x10^3/uL (0.0-0.7) Basophils # (Auto) 0.0 x10^3/uL (0.0-0.2) Prothrombin Time 13.2 SEC (11.7-14.0) Prothromb Time International Ratio 1.0 (0.8-1.1) Activated Partial Thromboplast Time 30 SEC (24-38) Urine Collection Type Unknown Urine Color Yellow Urine Clarity Clear Urine pH 5.5 (<5.0-8.0) Urine Specific [place] >=1.030 (1.000-1.030) Urine Protein Negative mg/dL (NEG-TRACE) Urine Glucose (UA) Negative mg/dL (NEG) Urine Ketones (Stick) 15 mg/dL (NEG) Urine Blood Negative (NEG) Urine Nitrite Negative (NEG) Urine Bilirubin Negative (NEG) Urine Urobilinogen Dipstick 0.2 mg/dL (0.2 mg/dL) Urine Leukocyte Esterase Negative (NEG) Urine RBC 0 /HPF (0-2) Urine WBC 1-4 /HPF (0-4) Urine Bacteria Few /HPF (0-FEW) Urine Mucus Marked /LPF Sodium Level 140 mmol/L (136-145) Potassium Level 3.9 mmol/L (3.5-5.1) Chloride Level 102 mmol/L (98-107) Carbon Dioxide Level 32 mmol/L (21-32) Anion Gap 6 (6-14) Blood Urea Nitrogen 15 mg/dL (7-20) Creatinine 0.7 mg/dL (0.6-1.0) Estimated GFR (Cockcroft-Gault) 81.1 BUN/Creatinine Ratio 21 (6-20) Glucose Level 190 mg/dL (70-99) Calcium Level 9.6 mg/dL (8.5-10.1) Magnesium Level 1.9 mg/dL (1.8-2.4) Total Bilirubin 0.3 mg/dL (0.2-1.0) Aspartate Amino Transf (AST/SGOT) 21 U/L (15-37) Alanine Aminotransferase (ALT/SGPT) 26 U/L (14-59) Alkaline Phosphatase 64 U/L (46-116) Troponin I Quantitative < 0.017 ng/mL (0.000-0.055) JZ-Wbp-U-Type Natriuretic Peptide 155 pg/mL (0-449) Total Protein 7.2 g/dL (6.4-8.2) Albumin 3.8 g/dL (3.4-5.0) Albumin/Globulin Ratio 1.1 (1.0-1.7) Lipase 99 U/L (73-393) Thyroid Stimulating Hormone (TSH) 2.228 uIU/mL (0.358-3.74) Urine Opiates Screen Neg (NEG) Urine Methadone Screen Neg (NEG) Urine Barbiturates Neg (NEG) Urine Phencyclidine Screen Neg (NEG) Urine Amphetamine/Methamphetamine Neg (NEG) Urine Benzodiazepines Screen Neg (NEG) Urine Cocaine Screen Neg (NEG) Urine Cannabinoids Screen Neg (NEG) Urine Ethyl Alcohol Neg (NEG) Images Images CT head: No intracranial hemorrhage. No midline shift. Basal cisterns patents. Ventricles and sulci are globally prominent. No acute osseous abnormality. Orbits and paranasal sinuses unremarkable. Scattered foci of low attenuation within the white matter. IMPRESSION: 1. No acute intracranial hemorrhage. 2. Scattered regions of low attenuation within the white matter. Non-specific in nature but frequently secondary to chronic small vessel ischemic disease. 3. Prominence of ventricles and sulci which is frequently secondary to age related volume loss. VTE Prophylaxis Ordered VTE Prophylaxis Devices: No VTE Pharmacological Prophylaxi: Yes Assessment/Plan Assessment/Plan A/P: Chest pain - likely GERD, but with radiation into left arm will trend troponins, telemetry. Cardiology consulted, has plans to have ILR placed soon outpatient. Hypertensive urgency - likely due to medication compliance difficulties. 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 She has been advised to request nasal pillow fitting with her CPAP company and prescriber Depression with Anxiety - cont home celexa PVCs - noted previously, already has plans for ILR with cardiology outpatient GERD - PPI High Cholesterol - statin FEN - Cardiac diet PPX - Lovenox FULL CODE Dispo - inpatient Justifications for Admission Other Justification YEIMY DOUGLAS MD Nov 18, 2020 19:29
--- NOTE | 2020-11-18 19:50 | PHYS DOC ---
Past Medical History Past Medical History: A-Fib, Anxiety, Arrhythmia, Bronchitis, Depression, GERD, High Cholesterol, Hypertension, Other Additional Past Medical Histor: Sleep Apnea, PVC Past Surgical History: Cholecystectomy, Hysterectomy Additional Past Surgical Histo: L KNEE Smoking Status: Never Smoker Alcohol Use: None Drug Use: None General Adult EDM: Chief Complaint: WEAKNESS/GENERALIZED HPI: HPI: Patient is a 75 year old female with history of A. fib, hypertension, depression, high cholesterol, anxiety among other illnesses who presents today with multiple complaints. Patient is complaining of generalized weakness. She states symptoms began after eating lunch. She states she had lunch stood up from sitting position she became dizzy and felt weak. She states she did not pass out. She states she was trying to walk to her car. She states she got to the car and got more weak. She states she felt her chest was heavy specifically on the left side. She states her left upper arm was also heavy with tingling to the left upper extremity as well as lower extremity. Denies any headache, active chest pain or shortness of breath. Denies anything specifically exacerbating or relieving her symptoms. Review of Systems: Review of Systems: Constitutional: Reports generalized weakness. Denies fever or chills. [] Eyes: Denies change in visual acuity. [] HENT: Denies nasal congestion or sore throat. [] Respiratory: Denies cough or shortness of breath. [] Cardiovascular: Denies chest pain or edema. [] GI: Denies abdominal pain, nausea, vomiting, bloody stools or diarrhea. [] : Denies dysuria. [] Musculoskeletal: Denies back pain or joint pain. [] Integument: Denies rash. [] Neurologic: Reports dizziness. Reports left upper extremity as well as left lower extremity tingling. Denies headache, focal weakness or sensory changes. [] Psychiatric: Denies depression or anxiety. [] Heart Score: Risk Factors: Risk Factors: DM, Current or recent (<one month) smoker, HTN, HLP, family history of CAD, obesity. Risk Scores: Score 0 - 3: 2.5% MACE over next 6 weeks - Discharge Home Score 4 - 6: 20.3% MACE over next 6 weeks - Admit for Clinical Observation Score 7 - 10: 72.7% MACE over next 6 weeks - Early Invasive Strategies Allergies: Allergies: Allergies Coded Allergies Type Severity Reaction Last Updated Verified Iodinated Contrast Media Allergy Intermediate RASH/SWELLING/SKIN TURNS RED. 05/26/15 Yes shellfish derived Allergy Intermediate RED RASH/HIVES ALL OVER BODY 05/26/15 Yes Physical Exam: PE: Constitutional: Well developed, well nourished, no acute distress, non-toxic appearance. [] HENT: Normocephalic, atraumatic, bilateral external ears normal, oropharynx moist, no oral exudates, nose normal. [] Eyes: PERRLA, EOMI, conjunctiva normal, no discharge. [] Neck: Normal range of motion, no tenderness, supple, no stridor. [] Cardiovascular:Heart rate regular rhythm, no murmur [] Lungs & Thorax: Bilateral breath sounds clear to auscultation [] Abdomen: Bowel sounds normal, soft, no tenderness, no masses, no pulsatile masses. [] Skin: Warm, dry, no erythema, no rash. [] Back: No tenderness, no CVA tenderness. [] Extremities: No tenderness, no cyanosis, no clubbing, ROM intact, no edema. [] Neurologic: Alert and oriented X 3, normal motor function, normal sensory function, no focal deficits noted. Cranial nerves II through XII intact Psychologic: Flat affect, appears tearful Current Patient Data: Labs: Laboratory Tests Test 11/18/20 16:20 White Blood Count 6.6 x10^3/uL (4.0-11.0) Red Blood Count 4.46 x10^6/uL (3.50-5.40) Hemoglobin 13.3 g/dL (12.0-15.5) Hematocrit 40.1 % (36.0-47.0) Mean Corpuscular Volume 90 fL (79-100) Mean Corpuscular Hemoglobin 30 pg (25-35) Mean Corpuscular Hemoglobin Concent 33 g/dL (31-37) Red Cell Distribution Width 12.8 % (11.5-14.5) Platelet Count 229 x10^3/uL (140-400) Neutrophils (%) (Auto) 66 % (31-73) Lymphocytes (%) (Auto) 25 % (24-48) Monocytes (%) (Auto) 7 % (0-9) Eosinophils (%) (Auto) 1 % (0-3) Basophils (%) (Auto) 0 % (0-3) Neutrophils # (Auto) 4.3 x10^3/uL (1.8-7.7) Lymphocytes # (Auto) 1.7 x10^3/uL (1.0-4.8) Monocytes # (Auto) 0.5 x10^3/uL (0.0-1.1) Eosinophils # (Auto) 0.1 x10^3/uL (0.0-0.7) Basophils # (Auto) 0.0 x10^3/uL (0.0-0.2) Prothrombin Time 13.2 SEC (11.7-14.0) Prothrombin Time INR 1.0 (0.8-1.1) Activated Partial Thromboplast Time 30 SEC (24-38) Urine Collection Type Unknown Urine Color Yellow Urine Clarity Clear Urine pH 5.5 (<5.0-8.0) Urine Specific [place] >=1.030 (1.000-1.030) Urine Protein Negative mg/dL (NEG-TRACE) Urine Glucose (UA) Negative mg/dL (NEG) Urine Ketones (Stick) 15 mg/dL (NEG) Urine Blood Negative (NEG) Urine Nitrite Negative (NEG) Urine Bilirubin Negative (NEG) Urine Urobilinogen Dipstick 0.2 mg/dL (0.2 mg/dL) Urine Leukocyte Esterase Negative (NEG) Urine RBC 0 /HPF (0-2) Urine WBC 1-4 /HPF (0-4) Urine Bacteria Few /HPF (0-FEW) Urine Mucus Marked /LPF Sodium Level 140 mmol/L (136-145) Potassium Level 3.9 mmol/L (3.5-5.1) Chloride Level 102 mmol/L (98-107) Carbon Dioxide Level 32 mmol/L (21-32) Anion Gap 6 (6-14) Blood Urea Nitrogen 15 mg/dL (7-20) Creatinine 0.7 mg/dL (0.6-1.0) Estimated GFR (Cockcroft-Gault) 81.1 BUN/Creatinine Ratio 21 (6-20) H Glucose Level 190 mg/dL (70-99) H Calcium Level 9.6 mg/dL (8.5-10.1) Magnesium Level 1.9 mg/dL (1.8-2.4) Total Bilirubin 0.3 mg/dL (0.2-1.0) Aspartate Amino Transferase (AST) 21 U/L (15-37) Alanine Aminotransferase (ALT) 26 U/L (14-59) Alkaline Phosphatase 64 U/L (46-116) Troponin I Quantitative < 0.017 ng/mL (0.000-0.055) WF-Fic-H-Type Natriuretic Peptide 155 pg/mL (0-449) Total Protein 7.2 g/dL (6.4-8.2) Albumin 3.8 g/dL (3.4-5.0) Albumin/Globulin Ratio 1.1 (1.0-1.7) Lipase 99 U/L (73-393) Thyroid Stimulating Hormone (TSH) 2.228 uIU/mL (0.358-3.74) Urine Opiates Screen Neg (NEG) Urine Methadone Screen Neg (NEG) Urine Barbiturates Neg (NEG) Urine Phencyclidine Screen Neg (NEG) Urine Amphetamine/Methamphetamine Neg (NEG) Urine Benzodiazepines Screen Neg (NEG) Urine Cocaine Screen Neg (NEG) Urine Cannabinoids Screen Neg (NEG) Urine Ethyl Alcohol Neg (NEG) Laboratory Tests 11/18/20 16:20 Laboratory Tests 11/18/20 16:20 Vital Signs: Vital Signs Date Time Temp Pulse Resp B/P (MAP) Pulse Ox O2 Delivery O2 Flow Rate FiO2 11/18/20 18:55 69 94 11/18/20 16:04 98.4 18 196/86 (122) Room Air 98.4 EKG: EKG: [] Radiology/Procedures: Radiology/Procedures: []PROCEDURE: CT HEAD WO CONTRAST INDICATION: Reason: weakness / Spl. Instructions: / History: COMPARISON: July 26, 2020 TECHNIQUE: Axial CT images obtained through the head without intravenous contrast. One or more of the following individualized dose reduction techniques were utilized for this examination: 1. Automated exposure control; 2. Adjustment of the mA and/or kV according to patient size; 3. Use of iterative reconstruction technique. FINDINGS: No intracranial hemorrhage. No midline shift. Basal cisterns patents. Ventricles and sulci are globally prominent. No acute osseous abnormality. Orbits and paranasal sinuses unremarkable. Scattered foci of low attenuation within the white matter. IMPRESSION: 1. No acute intracranial hemorrhage. 2. Scattered regions of low attenuation within the white matter. Non-specific in nature but frequently secondary to chronic small vessel ischemic disease. 3. Prominence of ventricles and sulci which is frequently secondary to age related volume loss. Electronically signed by: Chelsea Simmons MD (11/18/2020 5:28 PM) [id number] DICTATED and SIGNED BY: CHELSEA SIMMONS MD DATE: 11/18/[id number] 0 PROCEDURE: PORTABLE CHEST 1V EXAM: Chest, single view. HISTORY: Weakness. COMPARISON: 07/26/2020 FINDINGS: A frontal view of the chest is obtained. There is mild elevation of the right hemidiaphragm. There is no infiltrate, pleural effusion or pneumothorax. The heart is normal in size. There is a calcified granuloma within the right lower lung. IMPRESSION: 1. Mild elevation of the right hemidiaphragm. 2. No acute pulmonary finding. Electronically signed by: Jessica Mims MD (11/18/2020 5:17 PM) [id number] DICTATED and SIGNED BY: JESSICA MIMS MD DATE: 11/18/[id number] 0 Course & Med Decision Making: Course & Med Decision Making Pertinent Labs and Imaging studies reviewed. (See chart for details) This is a 75-year-old female patient presented to the ED today with generalized weakness that began a couple minutes prior to coming to the ED. Also complaining of left-sided chest heaviness and tingling to the left upper extremity and left lower extremity. CT of the head is negative, labs are negative for any acute findings. Blood pressures were noted in the 190s/80s Patient continued to complain about weakness in the ED. She states she does not feel comfortable going home, she is afraid she will fall. Spoke with Dr. Loco who accepted patient for admission. Mine Disclaimer: Mine Disclaimer: This electronic medical record was generated, in whole or in part, using a voice recognition dictation system. Departure Departure Impression: Primary Impression: HTN (hypertension) Qualified Codes: I10 - Essential (primary) hypertension Additional Impression: Generalized weakness Disposition: 09 ADMITTED INPT THIS HOSP Condition: STABLE Referrals: CARMINA GONZÁLES DO (PCP) VIOLA MESA APRN Nov 18, 2020 19:49
[2020-11-18] MEDS ORDERED: ACETAMINOPHEN 325 MG TABLET. PO PRN (20:00)
[2020-11-18] MEDS ORDERED: ONDANSETRON PF 4 MG/2 ML VIAL. IV PRN (20:00)
[2020-11-18] MEDS ORDERED: ZOLPIDEM 5 MG TABLET. PO PRN (21:15)
[2020-11-18] MEDS ORDERED: ATORVASTATIN CALCIUM 20 MG TABLET PO SCH (21:30)
[2020-11-18] MEDS ORDERED: CALCIUM CARBONATE 500 MG TABLET PO SCH (21:30)
[2020-11-18] MEDS ORDERED: ASPIRIN CHEWABLE 81 MG TABLET. PO SCH (21:30)
[2020-11-18] MEDS ORDERED: CITALOPRAM 20 MG TABLET. PO SCH (21:30)
[2020-11-18] MEDS ORDERED: PANTOPRAZOLE 40 MG TABLET.DR. PO SCH (21:30)
[2020-11-18] MEDS ORDERED: MULTIVITAMIN with MINERAL TABLET. PO SCH (21:30)
--- NOTE | 2020-11-18 21:30 | NUR ---
The patient, TIANNA ABDUL V, 75 y/o, F admitted by YEIMY DOUGLAS MD, was given written information regarding hospital policies, unit procedures and contact persons. Valuables were checked and left with her.
[2020-11-18] MEDS ORDERED: LOSA-73 PO (21:44)
[2020-11-18] MEDS ORDERED: hydrALAZINE 20 MG/ML VIAL. IVP PRN (22:00)
[2020-11-18] MEDS ORDERED: ENOXAPARIN 40 MG/0.4 ML SYRINGE. SQ SCH (22:00)
[2020-11-18] MEDS: METOPROLOL SUCC 24HR ER 25 MG TAB.ER.24H. PO SCH (22:04)
[2020-11-18] MEDS: LOSARTAN POTASSIUM 50 MG TABLET. PO SCH (22:06)
[2020-11-18 23:00] VITALS: BP 142/75
[2020-11-19 03:11] VITALS: BP 181/92
[2020-11-19 07:00] VITALS: BP 150/71
--- NOTE | 2020-11-19 08:18 | PDOC ---
[employer] PROGRESS NOTE Date of Service DOS: DATE: 11/19/20 TIME: 08:08 Chief Complaint Chief Complaint A/P: Chest pain - likely GERD, but with radiation into left arm will trend troponins, telemetry. Cardiology consulted, has plans to have ILR placed soon outpatient. Hypertensive urgency - likely due to medication compliance difficulties. 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 She has been advised to request nasal pillow fitting with her CPAP company and prescriber Depression with Anxiety - cont home celexa PVCs - noted previously, already has plans for ILR with cardiology outpatient GERD - PPI High Cholesterol - statin FEN - Cardiac diet PPX - Lovenox FULL CODE Dispo - inpatient History of Present Illness History of Present Illness Ms Schwab is a 75yo F w/ PMHx SULEMAN on CPAP, Anxiety, PVCs, Bronchitis, Depression, GERD, High Cholesterol, Hypertension who presents to ED with multiple complaints. Patient is complaining of generalized weakness. She states symptoms began after eating lunch. She states she had lunch stood up from sitting position she became dizzy and felt weak. She states she did not pass out. She states she was trying to walk to her car. She states she got to the car and got more weak. She states she felt her chest was heavy specifically on the left side. She states her left upper arm was also heavy with tingling to the left upper extremity as well as lower extremity. Denies any headache, active chest pain or shortness of breath. Denies anything specifically exacerbating or relieving her symptoms. Her is bedside notes that ever since she stopped wearing her CPAP at night she was noted stopping breathing frequently and experiences the same chest discomfort, palpitations, and feeling of doom and malaise as she did after she left lunch today. CT head and chest radiograph reviewed with no acute abnormality. Labs including troponin within normal limits. SBP > 190mmHg. On further review she notes she has been having daytime sleepiness and forgot to take her anti- hypertensives today. Admitted for further treatment 11/19: Patient seen and evaluated. Repeat troponin for this morning. Suspect symptoms are secondary to CPAP noncompliance. She is scheduled to have loop re enid device placed on Sunday. Defer to radiology about keeping this appointment for Sunday or pumping placement while inpatient. Vitals/I&O Vitals/I&O: Vital Signs Date Time Temp Pulse Resp B/P (MAP) Pulse Ox O2 Delivery O2 Flow Rate FiO2 11/19/20 07:00 97.8 78 18 150/71 (97) 95 Room Air 97.8 Physical Exam General: Alert, Oriented X3, Cooperative, No acute distress Heart: Regular rate Lungs: Clear Abdomen: Normal bowel sounds, Soft, No tenderness, No masses Extremities: No clubbing, No cyanosis, No edema Skin: No rashes, No breakdown, No significant lesion Labs Labs: Laboratory Tests Test 11/18/20 16:20 White Blood Count 6.6 x10^3/uL (4.0-11.0) Red Blood Count 4.46 x10^6/uL (3.50-5.40) Hemoglobin 13.3 g/dL (12.0-15.5) Hematocrit 40.1 % (36.0-47.0) Mean Corpuscular Volume 90 fL (79-100) Mean Corpuscular Hemoglobin 30 pg (25-35) Mean Corpuscular Hemoglobin Concent 33 g/dL (31-37) Red Cell Distribution Width 12.8 % (11.5-14.5) Platelet Count 229 x10^3/uL (140-400) Neutrophils (%) (Auto) 66 % (31-73) Lymphocytes (%) (Auto) 25 % (24-48) Monocytes (%) (Auto) 7 % (0-9) Eosinophils (%) (Auto) 1 % (0-3) Basophils (%) (Auto) 0 % (0-3) Neutrophils # (Auto) 4.3 x10^3/uL (1.8-7.7) Lymphocytes # (Auto) 1.7 x10^3/uL (1.0-4.8) Monocytes # (Auto) 0.5 x10^3/uL (0.0-1.1) Eosinophils # (Auto) 0.1 x10^3/uL (0.0-0.7) Basophils # (Auto) 0.0 x10^3/uL (0.0-0.2) Prothrombin Time 13.2 SEC (11.7-14.0) Prothromb Time International Ratio 1.0 (0.8-1.1) Activated Partial Thromboplast Time 30 SEC (24-38) Urine Collection Type Unknown Urine Color Yellow Urine Clarity Clear Urine pH 5.5 (<5.0-8.0) Urine Specific [place] >=1.030 (1.000-1.030) Urine Protein Negative mg/dL (NEG-TRACE) Urine Glucose (UA) Negative mg/dL (NEG) Urine Ketones (Stick) 15 mg/dL (NEG) Urine Blood Negative (NEG) Urine Nitrite Negative (NEG) Urine Bilirubin Negative (NEG) Urine Urobilinogen Dipstick 0.2 mg/dL (0.2 mg/dL) Urine Leukocyte Esterase Negative (NEG) Urine RBC 0 /HPF (0-2) Urine WBC 1-4 /HPF (0-4) Urine Bacteria Few /HPF (0-FEW) Urine Mucus Marked /LPF Sodium Level 140 mmol/L (136-145) Potassium Level 3.9 mmol/L (3.5-5.1) Chloride Level 102 mmol/L (98-107) Carbon Dioxide Level 32 mmol/L (21-32) Anion Gap 6 (6-14) Blood Urea Nitrogen 15 mg/dL (7-20) Creatinine 0.7 mg/dL (0.6-1.0) Estimated GFR (Cockcroft-Gault) 81.1 BUN/Creatinine Ratio 21 (6-20) Glucose Level 190 mg/dL (70-99) Calcium Level 9.6 mg/dL (8.5-10.1) Magnesium Level 1.9 mg/dL (1.8-2.4) Total Bilirubin 0.3 mg/dL (0.2-1.0) Aspartate Amino Transf (AST/SGOT) 21 U/L (15-37) Alanine Aminotransferase (ALT/SGPT) 26 U/L (14-59) Alkaline Phosphatase 64 U/L (46-116) Troponin I Quantitative < 0.017 ng/mL (0.000-0.055) GX-[place]-P-Type Natriuretic Peptide 155 pg/mL (0-449) Total Protein 7.2 g/dL (6.4-8.2) Albumin 3.8 g/dL (3.4-5.0) Albumin/Globulin Ratio 1.1 (1.0-1.7) Lipase 99 U/L (73-393) Thyroid Stimulating Hormone (TSH) 2.228 uIU/mL (0.358-3.74) Urine Opiates Screen Neg (NEG) Urine Methadone Screen Neg (NEG) Urine Barbiturates Neg (NEG) Urine Phencyclidine Screen Neg (NEG) Urine Amphetamine/Methamphetamine Neg (NEG) Urine Benzodiazepines Screen Neg (NEG) Urine Cocaine Screen Neg (NEG) Urine Cannabinoids Screen Neg (NEG) Urine Ethyl Alcohol Neg (NEG) Assessment and Plan Assessmemt and Plan Problems Medical Problems: (1) HTN (hypertension) Status: Acute (2) Musculoskeletal pain Status: Acute Comment Review of Relevant I have reviewed the following items estephanie (where applicable) has been applied. Medications: Current Medications Medications (Trade) Dose Ordered Sig/Caesar Route PRN Reason Start Time Stop Time Status Last Admin Dose Admin Aspirin (Aspirin Chewable) 81 mg HS PO 11/18/20 21:30 11/18/20 22:05 Atorvastatin Calcium (Lipitor) 20 mg QHS PO 11/18/20 21:30 11/18/20 22:01 Citalopram Hydrobromide (CeleXA) 20 mg HS PO 11/18/20 21:30 11/18/20 22:01 Calcium Carbonate/ Glycine (Oscal) 500 mg HS PO 11/18/20 21:30 11/18/20 22:01 Multivitamins (Thera M Plus) 1 tab HS PO 11/18/20 21:30 11/18/20 22:02 Pantoprazole Sodium (Protonix) 40 mg HS PO 11/18/20 21:30 11/18/20 22:01 Zolpidem Tartrate (Ambien) 5 mg PRN QHS PRN PO INSOMNIA 11/18/20 21:15 11/18/20 22:05 Losartan Potassium (Cozaar) 25 mg BID PO 11/18/20 22:00 11/18/20 22:06 Metoprolol Succinate (Toprol Xl) 25 mg BID PO 11/18/20 22:00 11/18/20 22:04 Hydralazine HCl (Apresoline Inj) 10 mg PRN Q4HRS PRN IVP ELEVATED BP, SEE COMMENTS 11/18/20 22:00 11/19/20 02:41 Enoxaparin Sodium (Lovenox 40mg Syringe) 40 mg Q24H SQ 11/18/20 22:00 11/18/20 22:12 Justifications for Admission Other Justification DIONE VALENCIA MD Nov 19, 2020 08:18
[2020-11-19] MEDS ORDERED: METOPROLOL SUCC 24HR ER 25 MG TAB.ER.24H. PO SCH (09:00)
[2020-11-19] MEDS ORDERED: LOSARTAN POTASSIUM 50 MG TABLET. PO SCH (09:00)
[2020-11-19 09:30] LABS: CHOLESTEROL/HDL RATIO 4.1
--- NOTE | 2020-11-19 09:59 | NUR ---
SW following. Discussed with RN, pt from home with , room air, NPO. Cardiology consulted. RN advised no SW needs at this time. SW will continue to follow.
[2020-11-19] MEDS: LOSARTAN POTASSIUM 50 MG TABLET. PO SCH (10:07)
[2020-11-19] MEDS: METOPROLOL SUCC 24HR ER 25 MG TAB.ER.24H. PO SCH (10:16)
[2020-11-19 11:00] VITALS: BP 142/68
--- NOTE | 2020-11-19 11:18 | PDOC2 ---
NICOLE RODRÍGUEZ ROOM MANAGER 11/19/20 1118: CARDIAC CONSULT DATE OF CONSULT Date of Consult DATE: 11/19/20 TIME: 11:11 REASON FOR CONSULT Reason for Consult: chest pain, palpitations REFERRING PHYSICIAN Referring Physician: Claudy SOURCE Source: Chart review, Patient HISTORY OF PRESENT ILLNESS HISTORY OF PRESENT ILLNESS This is a pleasamt 75 yo female admitted for complains of chest pain and dizziness. Reports that she was on her way to eat out when she felt dizzy and fatigued. Also with some SOA. This did get better and proceeded to go eat out. After that her symptoms recurred. Described as mid chest tightness with radiating tingling to her left arm and also with SOA, no diaphoresis but felt drain and dizzy. Denies any palpitations. When she was finally in ED she was noted with SBP in the 200s. This happens to her intermittently but not for a while but everytime she has symptoms she notes that her BP appears to be high sometimes noted in the 180s at home. She does not follow DASH diet and at times she forgets to take her meds which she did yesterday before eating out. Also she could not tolerate CPAP so she has not used this and waiting to possibly try the nasal pillow if she gets approved. She has had symptoms of palpitations and chest pain before and notable for anxiety and fibromyalgia. Also had multiple ischemic workup before including LHC and no significant CAD was noted and had a heart monitor before which did not show any arrhythmias. PAST MEDICAL HISTORY Past Medical History Cardiovascular: HTN, Hyperlipidemia, PVCs Pulmonary: Other (SULEMAN) CENTRAL NERVOUS SYSTEM: Other (No pertinent history) GI: No pertinent hx Heme/Onc: No pertinent hx Hepatobiliary: No pertinent hx Psych: anxiety Musculoskeletal: Osteoarthritis, osteopenia Rheumatologic: Fibromyalgia Infectious disease: No pertinent hx Renal/: No pertinent hx Endocrine: Diabetes (pre) Dermatology: No pertinent hx PAST SURGICAL HISTORY Past Surgical History Arthroscopy (left knee), Cholecystectomy, Hysterectomy (vaginal), LHC FAMILY HISTORY Family History: Hypertension SOCIAL HISTORY Social History Smoke: none ALCOHOL: none Drugs: None Lives: Alone CURRENT MEDICATIONS CURRENT MEDICATIONS Current Medications Medications (Trade) Dose Ordered Sig/Caesar Route PRN Reason Start Time Stop Time Status Last Admin Dose Admin Acetaminophen (Tylenol) 650 mg PRN Q4HRS PRN PO FEVER > 100.3'F 11/18/20 20:00 11/19/20 19:59 11/19/20 10:01 Aspirin (Aspirin Chewable) 81 mg HS PO 11/18/20 21:30 11/18/20 22:05 Atorvastatin Calcium (Lipitor) 20 mg QHS PO 11/18/20 21:30 11/18/20 22:01 Citalopram Hydrobromide (CeleXA) 20 mg HS PO 11/18/20 21:30 11/18/20 22:01 Calcium Carbonate/ Glycine (Oscal) 500 mg HS PO 11/18/20 21:30 11/18/20 22:01 Multivitamins (Thera M Plus) 1 tab HS PO 11/18/20 21:30 11/18/20 22:02 Pantoprazole Sodium (Protonix) 40 mg HS PO 11/18/20 21:30 11/18/20 22:01 Zolpidem Tartrate (Ambien) 5 mg PRN QHS PRN PO INSOMNIA 11/18/20 21:15 11/18/20 22:05 Losartan Potassium (Cozaar) 25 mg BID PO 11/18/20 22:00 11/19/20 10:07 Metoprolol Succinate (Toprol Xl) 25 mg BID PO 11/18/20 22:00 11/19/20 10:16 Hydralazine HCl (Apresoline Inj) 10 mg PRN Q4HRS PRN IVP ELEVATED BP, SEE COMMENTS 11/18/20 22:00 11/19/20 02:41 Enoxaparin Sodium (Lovenox 40mg Syringe) 40 mg Q24H SQ 11/18/20 22:00 11/18/20 22:12 ALLERGIES ALLERGIES: Coded Allergies: Iodinated Contrast Media (Verified Allergy, Intermediate, RASH/SWELLING/SKIN TURNS RED., 05/26/15) PATIENT NEEDS PRE-MEDICATED PRIOR TO ANY SCANS REQUIRING IV CONTRAST. shellfish derived (Verified Allergy, Intermediate, RED RASH/HIVES ALL OVER BODY, 05/26/15) ROS Review of System 14 point ROS evaluated with pertinent positives noted per HPI PHYSICAL EXAM General: Alert, Oriented X3, Cooperative, No acute distress HEENT: Atraumatic, Mucous membr. moist/pink Lungs: Clear to auscultation, Normal air movement Heart: Regular rate, Normal S1, Normal S2, No murmurs Abdomen: Soft, No tenderness Extremities: No cyanosis, No edema Skin: No breakdown, No significant lesion Neuro: Normal speech, Sensation intact Psych/Mental Status: Mental status NL, Mood NL MUSCULOSKELETAL: Osteoarthritic changes both hands VITALS/I&O VITALS/I&O: Vital Signs Date Time Temp Pulse Resp B/P (MAP) Pulse Ox O2 Delivery O2 Flow Rate FiO2 11/19/20 10:16 72 150/71 11/19/20 08:00 Room Air 11/19/20 07:00 97.8 18 95 97.8 LABS Lab: Laboratory Tests Test 11/18/20 16:20 11/19/20 08:25 White Blood Count 6.6 x10^3/uL (4.0-11.0) Red Blood Count 4.46 x10^6/uL (3.50-5.40) Hemoglobin 13.3 g/dL (12.0-15.5) Hematocrit 40.1 % (36.0-47.0) Mean Corpuscular Volume 90 fL (79-100) Mean Corpuscular Hemoglobin 30 pg (25-35) Mean Corpuscular Hemoglobin Concent 33 g/dL (31-37) Red Cell Distribution Width 12.8 % (11.5-14.5) Platelet Count 229 x10^3/uL (140-400) Neutrophils (%) (Auto) 66 % (31-73) Lymphocytes (%) (Auto) 25 % (24-48) Monocytes (%) (Auto) 7 % (0-9) Eosinophils (%) (Auto) 1 % (0-3) Basophils (%) (Auto) 0 % (0-3) Neutrophils # (Auto) 4.3 x10^3/uL (1.8-7.7) Lymphocytes # (Auto) 1.7 x10^3/uL (1.0-4.8) Monocytes # (Auto) 0.5 x10^3/uL (0.0-1.1) Eosinophils # (Auto) 0.1 x10^3/uL (0.0-0.7) Basophils # (Auto) 0.0 x10^3/uL (0.0-0.2) Prothrombin Time 13.2 SEC (11.7-14.0) Prothrombin Time INR 1.0 (0.8-1.1) Activated Partial Thromboplast Time 30 SEC (24-38) Urine Collection Type Unknown Urine Color Yellow Urine Clarity Clear Urine pH 5.5 (<5.0-8.0) Urine Specific [place] >=1.030 (1.000-1.030) Urine Protein Negative mg/dL (NEG-TRACE) Urine Glucose (UA) Negative mg/dL (NEG) Urine Ketones (Stick) 15 mg/dL (NEG) Urine Blood Negative (NEG) Urine Nitrite Negative (NEG) Urine Bilirubin Negative (NEG) Urine Urobilinogen Dipstick 0.2 mg/dL (0.2 mg/dL) Urine Leukocyte Esterase Negative (NEG) Urine RBC 0 /HPF (0-2) Urine WBC 1-4 /HPF (0-4) Urine Bacteria Few /HPF (0-FEW) Urine Mucus Marked /LPF Sodium Level 140 mmol/L (136-145) Potassium Level 3.9 mmol/L (3.5-5.1) Chloride Level 102 mmol/L (98-107) Carbon Dioxide Level 32 mmol/L (21-32) Anion Gap 6 (6-14) Blood Urea Nitrogen 15 mg/dL (7-20) Creatinine 0.7 mg/dL (0.6-1.0) Estimated GFR (Cockcroft-Gault) 81.1 BUN/Creatinine Ratio 21 (6-20) H Glucose Level 190 mg/dL (70-99) H Calcium Level 9.6 mg/dL (8.5-10.1) Magnesium Level 1.9 mg/dL (1.8-2.4) Total Bilirubin 0.3 mg/dL (0.2-1.0) Aspartate Amino Transferase (AST) 21 U/L (15-37) Alanine Aminotransferase (ALT) 26 U/L (14-59) Alkaline Phosphatase 64 U/L (46-116) Troponin I Quantitative < 0.017 ng/mL (0.000-0.055) < 0.017 ng/mL (0.000-0.055) WK-Wke-N-Type Natriuretic Peptide 155 pg/mL (0-449) Total Protein 7.2 g/dL (6.4-8.2) Albumin 3.8 g/dL (3.4-5.0) Albumin/Globulin Ratio 1.1 (1.0-1.7) Lipase 99 U/L (73-393) Thyroid Stimulating Hormone (TSH) 2.228 uIU/mL (0.358-3.74) Urine Opiates Screen Neg (NEG) Urine Methadone Screen Neg (NEG) Urine Barbiturates Neg (NEG) Urine Phencyclidine Screen Neg (NEG) Urine Amphetamine/Methamphetamine Neg (NEG) Urine Benzodiazepines Screen Neg (NEG) Urine Cocaine Screen Neg (NEG) Urine Cannabinoids Screen Neg (NEG) Urine Ethyl Alcohol Neg (NEG) Triglycerides Level 93 mg/dL (0-150) Cholesterol Level 240 mg/dL (0-200) H LDL Cholesterol, Calculated 163 mg/dL (0-100) H VLDL Cholesterol, Calculated 19 mg/dL (0-40) Non-HDL Cholesterol Calculated 182 mg/dL (0-129) H HDL Cholesterol 58 mg/dL (40-60) Cholesterol/HDL Ratio 4.1 Laboratory Tests 11/18/20 16:20 Laboratory Tests 11/18/20 16:20 ECHOCARDIOGRAM ECHOCARDIOGRAM <Conclusion> The left ventricle is normal size. The left ventricular systolic function is normal and the ejection fraction is within normal range. The Ejection Fraction is 50-55%. Doppler and Color Flow revealed no significant aortic regurgitation. There is no significant aortic valvular stenosis. Doppler and Color-flow revealed trace mitral regurgitation. Doppler and Color Flow revealed trace tricuspid regurgitation with an estimated PAP of 35 mmHg. DATE: 04/06/20 1218 HEART CATH HEART CATH Conclusion 1. No significant coronary artery disease 2. Mild pulmonary hypertension 3. Chronic diastolic heart failure 4. No evidence of intracardiac shunt Recommendations Medical Therapy DATE: 12/06/18 0859 ASSESSMENT/PLAN ASSESSMENT/PLAN 1. Atypical CP: likely from high BP 2. HTN urgency: likely from combination of diet noncompliance, missed meds and SULEMAN 3. Hypertensive encephalopathy 4. SULEMAN: noncompliant to CPAP 5. Anxiety/ panic 6. HLP: LDL 163 7. Obesity 8. Hx of fibromyalgia 9. Suspect BPPV: described vertigo with positional changes 10. Presyncope: likely from HTN issues. No arrhythmias so far 11. Hyperglycemia vs DM2 per PCP Recommendations 1. No ALEJANDRO per past renal arteriogram. Discussed med and diet compliance. She will possibly need to be retested for SULEMAN at least for nasal pillow 2. Dietitian consult 3. ASA/statin. Continue home BP regimen and adjust per trend. 4. Plan for ILR placement on Sunday as an outpt. 5. HBPM encouraged bid in the next week. 6. PT/OT ALIX JONES MD 11/20/20 0911: CARDIAC CONSULT ASSESSMENT/PLAN ASSESSMENT/PLAN Patient seen and examined. Agree with UNDERGROUND PRODUCTION FOREPERSON's assessment and plan. CP with atypical features. OR ruled out. Accelerated HTN prob from non compliance, better controlled since admission Recent echo showed normal LVEF, cath did not show any significant CAD and renal angio did not show any ALEJANDRO OK for DC from cardiac standpoint and follow up with our office as scheduled Thank you for your consultation NICOLE RODRÍGUEZ APRN Nov 19, 2020 11:18 ALIX JONES MD Nov 20, 2020 09:11
[2020-11-19 15:00] VITALS: BP 152/71
--- NOTE | 2020-11-19 15:29 | PDOC3 ---
Discharge Summary Visit Information Date of Admission: Nov 18, 2020 Date of Discharge: Nov 19, 2020 Final Diagnosis Problems Medical Problems: (1) HTN (hypertension) Status: Acute (2) Musculoskeletal pain Status: Acute Brief Hospital Course Allergies Allergies Coded Allergies Type Severity Reaction Last Updated Verified Iodinated Contrast Media Allergy Intermediate RASH/SWELLING/SKIN TURNS RED. 05/26/15 Yes shellfish derived Allergy Intermediate RED RASH/HIVES ALL OVER BODY 05/26/15 Yes Vital Signs Vital Signs Date Time Temp Pulse Resp B/P (MAP) Pulse Ox O2 Delivery O2 Flow Rate FiO2 11/19/20 11:00 97.9 68 16 142/68 (92) 94 Room Air 97.9 Lab Results Laboratory Tests Test 11/18/20 16:20 11/19/20 08:25 White Blood Count 6.6 x10^3/uL (4.0-11.0) Red Blood Count 4.46 x10^6/uL (3.50-5.40) Hemoglobin 13.3 g/dL (12.0-15.5) Hematocrit 40.1 % (36.0-47.0) Mean Corpuscular Volume 90 fL (79-100) Mean Corpuscular Hemoglobin 30 pg (25-35) Mean Corpuscular Hemoglobin Concent 33 g/dL (31-37) Red Cell Distribution Width 12.8 % (11.5-14.5) Platelet Count 229 x10^3/uL (140-400) Neutrophils (%) (Auto) 66 % (31-73) Lymphocytes (%) (Auto) 25 % (24-48) Monocytes (%) (Auto) 7 % (0-9) Eosinophils (%) (Auto) 1 % (0-3) Basophils (%) (Auto) 0 % (0-3) Neutrophils # (Auto) 4.3 x10^3/uL (1.8-7.7) Lymphocytes # (Auto) 1.7 x10^3/uL (1.0-4.8) Monocytes # (Auto) 0.5 x10^3/uL (0.0-1.1) Eosinophils # (Auto) 0.1 x10^3/uL (0.0-0.7) Basophils # (Auto) 0.0 x10^3/uL (0.0-0.2) Prothrombin Time 13.2 SEC (11.7-14.0) Prothromb Time International Ratio 1.0 (0.8-1.1) Activated Partial Thromboplast Time 30 SEC (24-38) Urine Collection Type Unknown Urine Color Yellow Urine Clarity Clear Urine pH 5.5 (<5.0-8.0) Urine Specific [place] >=1.030 (1.000-1.030) Urine Protein Negative mg/dL (NEG-TRACE) Urine Glucose (UA) Negative mg/dL (NEG) Urine Ketones (Stick) 15 mg/dL (NEG) Urine Blood Negative (NEG) Urine Nitrite Negative (NEG) Urine Bilirubin Negative (NEG) Urine Urobilinogen Dipstick 0.2 mg/dL (0.2 mg/dL) Urine Leukocyte Esterase Negative (NEG) Urine RBC 0 /HPF (0-2) Urine WBC 1-4 /HPF (0-4) Urine Bacteria Few /HPF (0-FEW) Urine Mucus Marked /LPF Sodium Level 140 mmol/L (136-145) Potassium Level 3.9 mmol/L (3.5-5.1) Chloride Level 102 mmol/L (98-107) Carbon Dioxide Level 32 mmol/L (21-32) Anion Gap 6 (6-14) Blood Urea Nitrogen 15 mg/dL (7-20) Creatinine 0.7 mg/dL (0.6-1.0) Estimated GFR (Cockcroft-Gault) 81.1 BUN/Creatinine Ratio 21 (6-20) Glucose Level 190 mg/dL (70-99) Calcium Level 9.6 mg/dL (8.5-10.1) Magnesium Level 1.9 mg/dL (1.8-2.4) Total Bilirubin 0.3 mg/dL (0.2-1.0) Aspartate Amino Transf (AST/SGOT) 21 U/L (15-37) Alanine Aminotransferase (ALT/SGPT) 26 U/L (14-59) Alkaline Phosphatase 64 U/L (46-116) Troponin I Quantitative < 0.017 ng/mL (0.000-0.055) < 0.017 ng/mL (0.000-0.055) TZ-Gxp-F-Type Natriuretic Peptide 155 pg/mL (0-449) Total Protein 7.2 g/dL (6.4-8.2) Albumin 3.8 g/dL (3.4-5.0) Albumin/Globulin Ratio 1.1 (1.0-1.7) Lipase 99 U/L (73-393) Thyroid Stimulating Hormone (TSH) 2.228 uIU/mL (0.358-3.74) Urine Opiates Screen Neg (NEG) Urine Methadone Screen Neg (NEG) Urine Barbiturates Neg (NEG) Urine Phencyclidine Screen Neg (NEG) Urine Amphetamine/Methamphetamine Neg (NEG) Urine Benzodiazepines Screen Neg (NEG) Urine Cocaine Screen Neg (NEG) Urine Cannabinoids Screen Neg (NEG) Urine Ethyl Alcohol Neg (NEG) Triglycerides Level 93 mg/dL (0-150) Cholesterol Level 240 mg/dL (0-200) LDL Cholesterol, Calculated 163 mg/dL (0-100) VLDL Cholesterol, Calculated 19 mg/dL (0-40) Non-HDL Cholesterol Calculated 182 mg/dL (0-129) HDL Cholesterol 58 mg/dL (40-60) Cholesterol/HDL Ratio 4.1 Laboratory Tests Test 11/18/20 16:20 11/19/20 08:25 White Blood Count 6.6 x10^3/uL (4.0-11.0) Red Blood Count 4.46 x10^6/uL (3.50-5.40) Hemoglobin 13.3 g/dL (12.0-15.5) Hematocrit 40.1 % (36.0-47.0) Mean Corpuscular Volume 90 fL (79-100) Mean Corpuscular Hemoglobin 30 pg (25-35) Mean Corpuscular Hemoglobin Concent 33 g/dL (31-37) Red Cell Distribution Width 12.8 % (11.5-14.5) Platelet Count 229 x10^3/uL (140-400) Neutrophils (%) (Auto) 66 % (31-73) Lymphocytes (%) (Auto) 25 % (24-48) Monocytes (%) (Auto) 7 % (0-9) Eosinophils (%) (Auto) 1 % (0-3) Basophils (%) (Auto) 0 % (0-3) Neutrophils # (Auto) 4.3 x10^3/uL (1.8-7.7) Lymphocytes # (Auto) 1.7 x10^3/uL (1.0-4.8) Monocytes # (Auto) 0.5 x10^3/uL (0.0-1.1) Eosinophils # (Auto) 0.1 x10^3/uL (0.0-0.7) Basophils # (Auto) 0.0 x10^3/uL (0.0-0.2) Prothrombin Time 13.2 SEC (11.7-14.0) Prothromb Time International Ratio 1.0 (0.8-1.1) Activated Partial Thromboplast Time 30 SEC (24-38) Urine Collection Type Unknown Urine Color Yellow Urine Clarity Clear Urine pH 5.5 (<5.0-8.0) Urine Specific [place] >=1.030 (1.000-1.030) Urine Protein Negative mg/dL (NEG-TRACE) Urine Glucose (UA) Negative mg/dL (NEG) Urine Ketones (Stick) 15 mg/dL (NEG) Urine Blood Negative (NEG) Urine Nitrite Negative (NEG) Urine Bilirubin Negative (NEG) Urine Urobilinogen Dipstick 0.2 mg/dL (0.2 mg/dL) Urine Leukocyte Esterase Negative (NEG) Urine RBC 0 /HPF (0-2) Urine WBC 1-4 /HPF (0-4) Urine Bacteria Few /HPF (0-FEW) Urine Mucus Marked /LPF Sodium Level 140 mmol/L (136-145) Potassium Level 3.9 mmol/L (3.5-5.1) Chloride Level 102 mmol/L (98-107) Carbon Dioxide Level 32 mmol/L (21-32) Anion Gap 6 (6-14) Blood Urea Nitrogen 15 mg/dL (7-20) Creatinine 0.7 mg/dL (0.6-1.0) Estimated GFR (Cockcroft-Gault) 81.1 BUN/Creatinine Ratio 21 (6-20) Glucose Level 190 mg/dL (70-99) Calcium Level 9.6 mg/dL (8.5-10.1) Magnesium Level 1.9 mg/dL (1.8-2.4) Total Bilirubin 0.3 mg/dL (0.2-1.0) Aspartate Amino Transf (AST/SGOT) 21 U/L (15-37) Alanine Aminotransferase (ALT/SGPT) 26 U/L (14-59) Alkaline Phosphatase 64 U/L (46-116) Troponin I Quantitative < 0.017 ng/mL (0.000-0.055) < 0.017 ng/mL (0.000-0.055) FY-Fhy-W-Type Natriuretic Peptide 155 pg/mL (0-449) Total Protein 7.2 g/dL (6.4-8.2) Albumin 3.8 g/dL (3.4-5.0) Albumin/Globulin Ratio 1.1 (1.0-1.7) Lipase 99 U/L (73-393) Thyroid Stimulating Hormone (TSH) 2.228 uIU/mL (0.358-3.74) Urine Opiates Screen Neg (NEG) Urine Methadone Screen Neg (NEG) Urine Barbiturates Neg (NEG) Urine Phencyclidine Screen Neg (NEG) Urine Amphetamine/Methamphetamine Neg (NEG) Urine Benzodiazepines Screen Neg (NEG) Urine Cocaine Screen Neg (NEG) Urine Cannabinoids Screen Neg (NEG) Urine Ethyl Alcohol Neg (NEG) Triglycerides Level 93 mg/dL (0-150) Cholesterol Level 240 mg/dL (0-200) LDL Cholesterol, Calculated 163 mg/dL (0-100) VLDL Cholesterol, Calculated 19 mg/dL (0-40) Non-HDL Cholesterol Calculated 182 mg/dL (0-129) HDL Cholesterol 58 mg/dL (40-60) Cholesterol/HDL Ratio 4.1 Brief Hospital Course Ms. Schwab is a 75 old female who presented with chest pain, hypertensive urgency, generalized weakness. Consultation placed to cardiology. She is scheduled to have a loop recorder device placed on 11/23/2020 to evaluate her symptoms of weakness. No emergent concerns from a cardiac standpoint, troponins were trended and negative. Patient work with physical therapy was deemed stable to discharge home with family care. Follow-up with cardiology outpatient. Discharge Information Condition at Discharge: Improved Follow Up: Weeks Disposition/Orders: D/C to Home Scheduled Aspirin (Aspirin) 81 Mg Tab.chew, 81 MG PO HS for heart healthy, (Reported) Entered as Reported by: DEVON QUINN on 10/18/18 0776 Last Action: Continued on 11/18/202117 by YEIMY DOUGLAS MD Atorvastatin Calcium (Atorvastatin Calcium) 20 Mg Tablet, 20 MG PO QHS for htn for 30 Days, #30 Prescribed by: SEAN GUEVARA MD on 05/28/20 2477 Last Action: Continued on 11/18/202117 by YEIMY DOUGLAS MD Calcium Carbonate (Calcium) 600 Mg Tablet, 600 MG PO HS for , (Reported) Entered as Reported by: JOLEEN SHEEHAN RN on 05/28/20557 Last Action: Converted on 11/18/202117 by YEIMY DOUGLAS MD Citalopram Hydrobromide (Citalopram Hbr) 20 Mg Tablet, 20 MG PO HS for depression, (Reported) Entered as Reported by: DEVON QUINN on 10/18/1845 Last Action: Continued on 11/18/202117 by YEIMY DOUGLAS MD Losartan Potassium (Losartan Potassium) 50 Mg Tablet, 25 MG PO BID for HYPERTENSION, (Reported) Entered as Reported by: BRIANNA GARLAND on 11/18/202143 Last Action: New Order on 11/18/202143 by BRIANNA HER Metoprolol Succinate (Metoprolol Succinate ( Xl )) 25 Mg Tab.er.24h, 25 MG PO BID for FOR HYPERTENSION, #30 Ref 0 (Reported) Entered as Reported by: JOLEEN SHEEHAN RN on 05/28/20557 Last Action: Edited on 11/18/202146 by BRIANNA HER Multivitamin (Multivitamins) 1 Each Tablet, 1 EACH PO HS for supplement, (Reported) Entered as Reported by: DEVON QUINN on 10/18/1841 Last Action: Converted on 11/18/202117 by YEIMY DOUGLAS MD Omeprazole Magnesium (Prilosec Otc) 20 Mg Tablet.dr, 20 MG PO HS for heart burn, (Reported) Entered as Reported by: DEVON QUINN on 10/18/18 0740 Last Action: Converted on 11/18/202117 by YEIMY DOUGLAS MD Pravastatin Sodium (Pravastatin Sodium) 20 Mg Tablet, 20 MG PO HS for , (Reported) Entered as Reported by: JOLEEN SHEEHAN RN on 05/28/20557 Last Action: Converted on 11/18/202117 by YEIMY DOUGLAS MD Justicifation of Admission Dx: Justifications for Admission: Justification of Admission Dx: N/A DIONE VALENCIA MD Nov 19, 2020 15:29
--- NOTE | 2020-11-19 18:05 | NUR ---
Patient discharged home to family. Patient received walker. She will follow up with Dr Rothman, already has appointment for Sunday.
[2020-11-19] MEDS ORDERED: ATORVASTATIN CALCIUM 40 MG TABLET. PO SCH (21:00)
[2020-11-19] MEDS ORDERED: NON FORMULARY ITEM (Pravastatin Sodium 20 MG) PO SCH (21:00)
[2020-11-20 00:09] LABS: HEMOGLOBIN A1C 5.8 % (4.8-5.6)
--- NOTE | 2020-11-22 16:31 | EKG ---
[facility] [address] [place] [address] Test Date: 2020-11-18 Test Time: 16:32:24 Pat Name: TIANNA ABDUL Department: Room: Gender: F Time Clock Inspector: : 1945 Requested By: VIOLA MESA Order Number: [id number] Reading MD: Measurements Intervals [place] Rate: 77 P: 26 MO: 198 QRS: -9 QRSD: 96 T: 62 QT: 408 QTc: 464 Interpretive Statements SINUS RHYTHM LEFTWARD AXIS OTHERWISE NORMAL ECG RI6.01 No previous ECG available for comparison
== END 2020-11-19 18:05 | disposition home or self-care (01) | DRG 305 ==
LOC: ER 15:34 → 5 NORTH 19:14
PROVIDERS: ADMIT Internal Medicine; ATTEND Internal Medicine
DX: I16.0 Hypertensive urgency (principal); I67.4 Hypertensive encephalopathy; R07.89 Other chest pain; G47.33 Obstructive sleep apnea (adult) (pediatric); F41.8 Other specified anxiety disorders; K21.9 Gastro-esophageal reflux disease without esophagitis; E78.00 Pure hypercholesterolemia, unspecified; E11.9 Type 2 diabetes mellitus without complications; Z91.19 Patient's noncompliance with other medical treatment and regimen; E66.9 Obesity, unspecified; E78.5 Hyperlipidemia, unspecified; I10 Essential (primary) hypertension; I48.91 Unspecified atrial fibrillation; M79.7 Fibromyalgia; M85.80 Other specified disorders of bone density and structure, unspecified site; Z82.49 Family history of ischemic heart disease and other diseases of the circulatory system; Z90.710 Acquired absence of both cervix and uterus; Z91.11 Patient's noncompliance with dietary regimen; F32.9 Major depressive disorder, single episode, unspecified; M19.90 Unspecified osteoarthritis, unspecified site; Z90.49 Acquired absence of other specified parts of digestive tract; Z88.8 Allergy status to other drugs, medicaments and biological substances; Z91.013 Allergy to seafood; Z68.30 Body mass index [BMI] 30.0-30.9, adult
CPT/HCPCS: 36415; 70450; 71045; 80053; 80061; 80307; 81001; 83036; 83690; 83735; 83880; 84443; 84484; 85025; 85610; 85730; 93005; J0360; J1650; 97535-GO; 99285-25; G0378

== ENCOUNTER → 2021-03-17 | Outpatient (CLI) | payer MEDICARE ==
[2021-03-09 11:00] VITALS: BP 106/54
--- NOTE | 2021-03-17 13:25 | CARD ---
MR#: [id number] Date of Study: 03/17/2021 Ordering Physician: ALIX CALLOWAY, Referring Physician: ALIX CALLOWAY, Tech: APPROVED REPORT PROCEDURE: Successful implantation of Medtronic Linq loop recorder INDICATIONS: Recurrent palpitations, rule out cardiac arrhythmia PROCEDURE DETAILS: An informed consent was obtained from patient. Patient was brought to the procedure suite and her le ft chest and shoulder were prepped and draped in the usual fashion. 20 mL of 2% lidocaine was infilt rated into the skin and subcutaneous tissues for local anesthesia. An incision was made in the left third intercostal space 1 inch from midsternal line and using the introducer and the prior provided w ith the kit, a Medtronic Linq loop recorder [id number] was placed in the subcutaneous tissue. Hemost asis was secured. Patient tolerated the procedure well. There were no immediate complications. At the end of procedure, the device showed sensing amplitude of 0.53 mV. CONCLUSION: Successful implantation of Medtronic Linq loop recorder for recurrent palpitations of uncertain etiol ogy Signed by : Alix Calloway, Electronically Approved : 03/17/2021 13:24:57
== END | disposition home or self-care (01) ==
LOC: LINQ 11:30
PROVIDERS: ATTEND Internal Medicine Cardiovascular Disease
DX: R00.2 Palpitations (principal); I10 Essential (primary) hypertension; I48.91 Unspecified atrial fibrillation; E78.00 Pure hypercholesterolemia, unspecified; E11.9 Type 2 diabetes mellitus without complications; G47.30 Sleep apnea, unspecified; E66.9 Obesity, unspecified; K21.9 Gastro-esophageal reflux disease without esophagitis; F32.9 Major depressive disorder, single episode, unspecified; F41.9 Anxiety disorder, unspecified; Z90.710 Acquired absence of both cervix and uterus; Z90.49 Acquired absence of other specified parts of digestive tract; Z98.890 Other specified postprocedural states; Z79.899 Other long term (current) drug therapy; Z79.82 Long term (current) use of aspirin; Z91.041 Radiographic dye allergy status; Z91.013 Allergy to seafood
CPT/HCPCS: 33285; C1764

== ENCOUNTER 2021-06-08 07:11 | Observation (INO) | payer MEDICARE ==
[~2021-06-08] VITALS: Ht 157.5 cm; Wt 75.6 kg
--- NOTE | 2021-06-08 07:47 | PHYS DOC ---
Past Medical History Past Medical History: A-Fib, Anxiety, Arrhythmia, Bronchitis, Depression, GERD, High Cholesterol, Hypertension, Other Additional Past Medical Histor: Sleep Apnea, PVC, "borderline DM" Past Surgical History: Cholecystectomy, Hysterectomy Additional Past Surgical Histo: L KNEE, loop recorder placed Smoking Status: Never Smoker Alcohol Use: None Drug Use: None General Adult EDM: Chief Complaint: Palpitations HPI: HPI: Patient is a 75 year old female who present to ER for evaluation of chest pain or heart palpitation. Patient woke up this morning with heart palpitation and chest pressure. Patient also have some aching and pressure in her left arm. Patient denies any cough or fever. Patient is not vaccinated for COVID-19. Patient denies any abdominal pain, no nausea vomiting. Patient has history of atrial fibrillation. She has no history of coronary artery disease. Review of Systems: Review of Systems: Constitutional: Denies fever or chills. [] Eyes: Denies change in visual acuity. [] HENT: Denies nasal congestion or sore throat. [] Respiratory: Denies cough or shortness of breath. [] Cardiovascular: Positive for chest pain, palpitation, no edema GI: Denies abdominal pain, nausea, vomiting, bloody stools or diarrhea. [] : Denies dysuria. [] Musculoskeletal: Denies back pain or joint pain. [] Integument: Denies rash. [] Neurologic: Denies headache, focal weakness or sensory changes. [] Endocrine: Denies polyuria or polydipsia. [] Lymphatic: Denies swollen glands. [] Psychiatric: Denies depression or anxiety. [] Heart Score: C/O Chest Pain: Yes HEART Score for Chest Pain: HEART Score for Chest Pain Response (Comments) Value History Moderately Suspicious 1 ECG Nonspecific Repolarizatio 1 Age > 65 2 Risk Factors >3 Risk Factors or Hx CAD 2 Troponin < Normal Limit 0 Total 6 Risk Factors: Risk Factors: DM, Current or recent (<one month) smoker, HTN, HLP, family history of CAD, obesity. Risk Scores: Score 0 - 3: 2.5% MACE over next 6 weeks - Discharge Home Score 4 - 6: 20.3% MACE over next 6 weeks - Admit for Clinical Observation Score 7 - 10: 72.7% MACE over next 6 weeks - Early Invasive Strategies Allergies: Allergies: Allergies Coded Allergies Type Severity Reaction Last Updated Verified Iodinated Contrast Media Allergy Intermediate RASH/SWELLING/SKIN TURNS RED. 06/08/21 Yes shellfish derived Allergy Intermediate RED RASH/HIVES ALL OVER BODY 06/08/21 Ye s Physical Exam: PE: Constitutional: Well developed, well nourished, no acute distress, non-toxic appearance. [] HENT: Normocephalic, atraumatic, bilateral external ears normal, oropharynx moist, no oral exudates, nose normal. [] Eyes: PERRLA, EOMI, conjunctiva normal, no discharge. [] Neck: Normal range of motion, no tenderness, supple, no stridor. [] Cardiovascular:Heart rate regular rhythm, no murmur [] Lungs & Thorax: Bilateral breath sounds clear to auscultation [] Abdomen: Bowel sounds normal, soft, no tenderness, no masses, no pulsatile masses. [] Skin: Warm, dry, no erythema, no rash. [] Back: No tenderness, no CVA tenderness. [] Extremities: No tenderness, no cyanosis, no clubbing, ROM intact, no edema. [] Neurologic: Alert and oriented X 3, normal motor function, normal sensory function, no focal deficits noted. [] Psychologic: Affect normal, judgement normal, mood normal. [] Current Patient Data: Labs: Laboratory Tests Test 06/08/21 07:40 06/08/21 08:25 White Blood Count 5.5 x10^3/uL Red Blood Count 4.33 x10^6/uL Hemoglobin 13.2 g/dL Hematocrit 38.6 % Mean Corpuscular Volume 89 fL Mean Corpuscular Hemoglobin 30 pg Mean Corpuscular Hemoglobin Concent 34 g/dL Red Cell Distribution Width 13.3 % Platelet Count 273 x10^3/uL Neutrophils (%) (Auto) 51 % Lymphocytes (%) (Auto) 37 % Monocytes (%) (Auto) 9 % Eosinophils (%) (Auto) 2 % Basophils (%) (Auto) 1 % Neutrophils # (Auto) 2.8 x10^3/uL Lymphocytes # (Auto) 2.0 x10^3/uL Monocytes # (Auto) 0.5 x10^3/uL Eosinophils # (Auto) 0.1 x10^3/uL Basophils # (Auto) 0.1 x10^3/uL Sodium Level 141 mmol/L Potassium Level 3.9 mmol/L Chloride Level 105 mmol/L Carbon Dioxide Level 29 mmol/L Anion Gap 7 Blood Urea Nitrogen 12 mg/dL Creatinine 0.6 mg/dL Estimated GFR (Cockcroft-Gault) 96.9 BUN/Creatinine Ratio 20 Glucose Level 106 mg/dL Calcium Level 9.4 mg/dL Magnesium Level 1.9 mg/dL Total Bilirubin 0.4 mg/dL Aspartate Amino Transf (AST/SGOT) 21 U/L Alanine Aminotransferase (ALT/SGPT) 24 U/L Alkaline Phosphatase 75 U/L Troponin I Quantitative < 0.017 ng/mL PZ-Dpw-Z-Type Natriuretic Peptide 101 pg/mL Total Protein 6.8 g/dL Albumin 3.4 g/dL Albumin/Globulin Ratio 1.0 Lipase 102 U/L Vital Signs: Vital Signs Date Time Temp Pulse Resp B/P (MAP) Pulse Ox O2 Delivery O2 Flow Rate FiO2 06/08/21 07:18 98.5 93 24 174/85 (66) 97 Room Air 98.5 EKG: EKG: EKG was done at 723, heart rate of 80 bpm, normal sinus rhythm, no ST segment elevation , right axis deviation. Radiology/Procedures: Radiology/Procedures: [][facility] [address] [place], [place] [id number] IMAGING REPORT Signed PATIENT: TIANNA ABDUL V ACCOUNT: [id number] : 1945 LOCATION: ER AGE: 75 SEX: F EXAM STATUS: REG ER ORD. PHYSICIAN: MATHEUS ESPINO DO REASON: heart palpitation PROCEDURE: PORTABLE CHEST 1V XR CHEST 1V History: Reason: heart palpitation / Spl. Instructions: / History: Comparison: March 09, 2021 Findings: Mild left basilar linear atelectasis. Elevation the right hemidiaphragm. No pleural effusion. Prior granulomatous disease within the chest. No pneumothorax. Impression: 1. No acute cardiopulmonary process. Electronically signed by: Yandel Redmond DO (06/08/2021 8:10 AM) [id number] DICTATED and SIGNED BY: YANDEL REDMOND DO DATE: 06/08/21 [id number] Course & Med Decision Making: Course & Med Decision Making Pertinent Labs and Imaging studies reviewed. (See chart for details) Patient is a 75-year-old female who present to ER due to chest pain and heart palpitation. Cardiac enzyme and EKG did not show any acute problem so far. Patient will be admitted to hospital for observation. Dragon Disclaimer: Dragon Disclaimer: This electronic medical record was generated, in whole or in part, using a voice recognition dictation system. Departure Departure Impression: Primary Impression: Chest pain Disposition: ADMITTED INPATIENT Admitting Physician: ERNIE (Dr. Morales) Condition: STABLE Referrals: CARMINA GONZÁLES DO (PCP) MATHEUS ESPINO DO Jun 08, 2021 07:47
[2021-06-08 08:01] LABS: BASO # 0.1 x10^3/uL (0.0-0.2); BASO % 1 % (0-3); EOS # 0.1 x10^3/uL (0.0-0.7); EOS % 2 % (0-3); HEMATOCRIT 38.6 % (36.0-47.0); HEMOGLOBIN 13.2 g/dL (12.0-15.5); LYMPH % 37 % (24-48); MEAN CORPUSCULAR HEMOGLOBIN 30 pg (25-35); MEAN CORPUSCULAR HGB CONC 34 g/dL (31-37); MEAN CORPUSCULAR VOLUME 89 fL (79-100); MONO # 0.5 x10^3/uL (0.0-1.1); MONO % 9 % (0-9); NEUT # 2.8 x10^3/uL (1.8-7.7); NEUT % 51 % (31-73); PLATELET COUNT 273 x10^3/uL (140-400); RED BLOOD COUNT 4.33 x10^6/uL (3.50-5.40); RED CELL DISTRIBUTION WIDTH 13.3 % (11.5-14.5); WHITE BLOOD COUNT 5.5 x10^3/uL (4.0-11.0)
--- NOTE | 2021-06-08 08:12 | RAD ---
XR CHEST 1V History: Reason: heart palpitation / Spl. Instructions: / History: Comparison: March 09, 2021 Findings: Mild left basilar linear atelectasis. Elevation the right hemidiaphragm. No pleural effusion. Prior g ranulomatous disease within the chest. No pneumothorax. Impression: 1. No acute cardiopulmonary process. Electronically signed by: Yandel Redmond DO (06/08/2021 8:10 AM) [id number]
[2021-06-08 08:44] LABS: CALCIUM 9.4 mg/dL (8.5-10.1); CREATININE 0.6 mg/dL (0.6-1.0); GFR 96.9; POTASSIUM 3.9 mmol/L (3.5-5.1)
[2021-06-08 08:49] LABS: ALBUMIN 3.4 g/dL (3.4-5.0); MAGNESIUM 1.9 mg/dL (1.8-2.4); TOTAL BILIRUBIN 0.4 mg/dL (0.2-1.0); TOTAL PROTEIN 6.8 g/dL (6.4-8.2)
[2021-06-08] MEDS ORDERED: CALCIUM CARBONATE 500 MG TAB.CHEW PO PRN (11:30)
[2021-06-08] MEDS ORDERED: ACETAMINOPHEN 325 MG TABLET. PO PRN (11:30)
[2021-06-08] MEDS ORDERED: ONDANSETRON PF 4 MG/2 ML VIAL. IVP PRN (11:30)
[2021-06-08] MEDS ORDERED: MORPHINE SULFATE 2 MG/ML INJ. IV PRN ×2 (11:30)
[2021-06-08] MEDS ORDERED: ZOLPIDEM 5 MG TABLET. PO PRN (11:30)
[2021-06-08] MEDS ORDERED: ELECTROLYTE (NON-ICU) PROTOCOL. MC PRN (11:30)
[2021-06-08] MEDS: LOSARTAN POTASSIUM 50 MG TABLET. PO SCH ×2 (12:00→23:00)
[2021-06-08] MEDS: METOPROLOL SUCC 24HR ER 25 MG TAB.ER.24H. PO SCH ×2 (12:00→22:30)
[2021-06-08 13:05] VITALS: BP 149/76
[2021-06-08 15:00] VITALS: BP 125/67
--- NOTE | 2021-06-08 15:05 | PDOC1 ---
History and Physical Date of Service: DOS: DATE: 06/08/21 TIME: 15:03 Chief Complaint: Problems: (1) Generalized weakness (2) HTN (hypertension) (3) Fatigue History of Present Illness: HPI: Patient is 75-year-old female presented today due to chest pain and palpitation s. Patient reports she awoke this morning and felt like her heart was pounding and she was having some midsternal chest pain with radiation to her left arm. She was very concerned she is having a heart attack but she presented here. Says her blood pressure at home was in the 180 systolic thus she took her losartan and half of metoprolol. Of note she says she has been here several times this year for a very similar presentation. She follows with Dr. Calloway of cardiology and says she had a loop recorder placed approximately in February for work-up of these episodes. Says she gets an episode like this every few months without any sort of positive findings on work-up. Will need to do full chart review to look at previous admissions. On presentation the emergency troponin and EKG were relatively unremarkable. Cardiology consulted. Patient has not received the Covid vaccine but has no Covid contacts that she is aware of. Patient is denying headache, vision changes, shortness of breath, abdominal pain, dysuria, joint pain. Past Medical/Surgical History: PMH/PSH: A-Fib, Anxiety, Arrhythmia, Bronchitis, Depression, GERD, High Cholesterol, Hypertension, Allergies: Allergies: Coded Allergies: Iodinated Contrast Media (Verified Allergy, Intermediate, RASH/SWELLING/SKIN TURNS RED., 06/08/21) PATIENT NEEDS PRE-MEDICATED PRIOR TO ANY SCANS REQUIRING IV CONTRAST. shellfish derived (Verified Allergy, Intermediate, RED RASH/HIVES ALL OVER BODY, 06/08/21) Family History: Family History: Noncontributory Social History: Social History: Denies alcohol tobacco or drug use Current Medications: Current Medications Current Medications Ondansetron HCl (Zofran) 4 mg PRN Q6HRS PRN IVP NAUSEA/VOMITING; Start 06/08/21 at 11:30 Calcium Carbonate/ Glycine (Tums) 500 mg PRN Q3HRS PRN PO UPSET STOMACH; Start 06/08/21 at 11:30 Zolpidem Tartrate (Ambien) 5 mg PRN QHS PRN PO INSOMNIA, MAY REPEAT IN 1HR; Start 06/08/21 at 11:30 Info (Non-Icu Electrolyte Protocol) 1 ea PRN DAILY PRN MC SEE COMMENTS; Start 06/08/21 at 11:30 Morphine Sulfate (Morphine Sulfate) 1 mg PRN Q1HR PRN IV PAIN; Start 06/08/21 at 11:30 Morphine Sulfate (Morphine Sulfate) 2 mg PRN Q1HR PRN IV PAIN; Start 06/08/21 at 11:30 Acetaminophen (Tylenol) 650 mg PRN Q6HRS PRN PO Headaches, Temp > 101.5F; Start 06/08/21 at 11:30 Senna/Docusate Sodium (Senna Plus) 1 tab BID PO ; Start 06/08/21 at 21:00 Heparin Sodium (Porcine) (Heparin Sodium) 5,000 unit Q12HR SQ ; Start 06/08/21 at 21:00 Aspirin (Aspirin Chewable) 81 mg HS PO ; Start 06/08/21 at 21:00 Citalopram Hydrobromide (CeleXA) 20 mg HS PO ; Start 06/08/21 at 21:00 Losartan Potassium (Cozaar) 25 mg BID PO ; Start 06/08/21 at 12:00 Metoprolol Succinate (Toprol Xl) 25 mg BID PO ; Start 06/08/21 at 12:00 Multivitamins (Thera M Plus) 1 tab HS PO ; Start 06/08/21 at 21:00 Pantoprazole Sodium (Protonix) 40 mg HS PO ; Start 06/08/21 at 21:00 Active Scripts Active Reported Losartan Potassium 50 Mg Tablet 25 Mg PO BID Metoprolol Succinate ( Xl ) (Metoprolol Succinate) 25 Mg Tab.er.24h 25 Mg PO BID Calcium (Calcium Carbonate) 600 Mg Tablet 600 Mg PO HS Citalopram Hbr (Citalopram Hydrobromide) 20 Mg Tablet 20 Mg PO HS Aspirin 81 Mg Tab.chew 81 Mg PO HS Multivitamins (Multivitamin) 1 Each Tablet 1 Each PO HS Prilosec Otc (Omeprazole Magnesium) 20 Mg Tablet.dr 20 Mg PO HS ROS: Review of Systems Negative unless noted in HPI Physical Exam: Vital Signs: Vital Signs Date Time Temp Pulse Resp B/P (MAP) Pulse Ox O2 Delivery O2 Flow Rate FiO2 06/08/21 12:36 62 20 139/77 (97) 95 Room Air 8/11/21 07:18 98.5 98.5 Physcial Exam: GEN: Anxious otherwise nothing major HEENT: Normal cephalic, atraumatic, external auditory canals are patent EYES: Extraocular muscles are intact, pupil are equally round and reactive to light and accommodation MUSCULOSKELETAL: Well developed , well nourished, good range of motion ENDOCRINE: No thyromegaly was palpated LYMPHATICS: No cervical chain or axillary nodes were noted HEMATOPOIETIC: No bruising NECK: Supple, no JVD, no thyromegaly was noted LUNGS: Clear to auscultation in all lung olivera without rhonchi or wheezing HEART: Irregularly irregular S1, S2 present. Peripheral pulses intact, no obvious murmurs noted ABDOMEN: Soft, nontender. Positive bowel sounds, no organomegaly, normal bowel sounds EXTREMITIES: Without clubbing, cyanosis, or edema. Pedal pulses intact. Negative Homans sign NEUROLOGIC: Normal speech and tone. A&O x 3, moves all extremities, no obvious focal deficits PSYCHIATRIC: Normal affect, normal mood. Stable SKIN: No ulcerations or rashes, good skin turgor, no jaundice VASCULAR: Good capillary refill, neurovascular bundle appears to be intact Labs: Labs: Laboratory Tests Test 06/08/21 07:40 06/08/21 08:25 06/08/21 10:52 06/08/21 12:40 White Blood Count 5.5 x10^3/uL (4.0-11.0) Red Blood Count 4.33 x10^6/uL (3.50-5.40) Hemoglobin 13.2 g/dL (12.0-15.5) Hematocrit 38.6 % (36.0-47.0) Mean Corpuscular Volume 89 fL (79-100) Mean Corpuscular Hemoglobin 30 pg (25-35) Mean Corpuscular Hemoglobin Concent 34 g/dL (31-37) Red Cell Distribution Width 13.3 % (11.5-14.5) Platelet Count 273 x10^3/uL (140-400) Neutrophils (%) (Auto) 51 % (31-73) Lymphocytes (%) (Auto) 37 % (24-48) Monocytes (%) (Auto) 9 % (0-9) Eosinophils (%) (Auto) 2 % (0-3) Basophils (%) (Auto) 1 % (0-3) Neutrophils # (Auto) 2.8 x10^3/uL (1.8-7.7) Lymphocytes # (Auto) 2.0 x10^3/uL (1.0-4.8) Monocytes # (Auto) 0.5 x10^3/uL (0.0-1.1) Eosinophils # (Auto) 0.1 x10^3/uL (0.0-0.7) Basophils # (Auto) 0.1 x10^3/uL (0.0-0.2) Sodium Level 141 mmol/L (136-145) Potassium Level 3.9 mmol/L (3.5-5.1) Chloride Level 105 mmol/L (98-107) Carbon Dioxide Level 29 mmol/L (21-32) Anion Gap 7 (6-14) Blood Urea Nitrogen 12 mg/dL (7-20) Creatinine 0.6 mg/dL (0.6-1.0) Estimated GFR (Cockcroft-Gault) 96.9 BUN/Creatinine Ratio 20 (6-20) Glucose Level 106 mg/dL (70-99) Calcium Level 9.4 mg/dL (8.5-10.1) Magnesium Level 1.9 mg/dL (1.8-2.4) Total Bilirubin 0.4 mg/dL (0.2-1.0) Aspartate Amino Transf (AST/SGOT) 21 U/L (15-37) Alanine Aminotransferase (ALT/SGPT) 24 U/L (14-59) Alkaline Phosphatase 75 U/L (46-116) Troponin I Quantitative < 0.017 ng/mL (0.000-0.055) < 0.017 ng/mL (0.000-0.055) < 0.017 ng/mL (0.000-0.055) PE-Bca-J-Type Natriuretic Peptide 101 pg/mL (0-449) Total Protein 6.8 g/dL (6.4-8.2) Albumin 3.4 g/dL (3.4-5.0) Albumin/Globulin Ratio 1.0 (1.0-1.7) Lipase 102 U/L (73-393) Laboratory Tests Test 06/08/21 07:40 06/08/21 08:25 06/08/21 10:52 06/08/21 12:40 White Blood Count 5.5 x10^3/uL (4.0-11.0) Red Blood Count 4.33 x10^6/uL (3.50-5.40) Hemoglobin 13.2 g/dL (12.0-15.5) Hematocrit 38.6 % (36.0-47.0) Mean Corpuscular Volume 89 fL (79-100) Mean Corpuscular Hemoglobin 30 pg (25-35) Mean Corpuscular Hemoglobin Concent 34 g/dL (31-37) Red Cell Distribution Width 13.3 % (11.5-14.5) Platelet Count 273 x10^3/uL (140-400) Neutrophils (%) (Auto) 51 % (31-73) Lymphocytes (%) (Auto) 37 % (24-48) Monocytes (%) (Auto) 9 % (0-9) Eosinophils (%) (Auto) 2 % (0-3) Basophils (%) (Auto) 1 % (0-3) Neutrophils # (Auto) 2.8 x10^3/uL (1.8-7.7) Lymphocytes # (Auto) 2.0 x10^3/uL (1.0-4.8) Monocytes # (Auto) 0.5 x10^3/uL (0.0-1.1) Eosinophils # (Auto) 0.1 x10^3/uL (0.0-0.7) Basophils # (Auto) 0.1 x10^3/uL (0.0-0.2) Sodium Level 141 mmol/L (136-145) Potassium Level 3.9 mmol/L (3.5-5.1) Chloride Level 105 mmol/L (98-107) Carbon Dioxide Level 29 mmol/L (21-32) Anion Gap 7 (6-14) Blood Urea Nitrogen 12 mg/dL (7-20) Creatinine 0.6 mg/dL (0.6-1.0) Estimated GFR (Cockcroft-Gault) 96.9 BUN/Creatinine Ratio 20 (6-20) Glucose Level 106 mg/dL (70-99) Calcium Level 9.4 mg/dL (8.5-10.1) Magnesium Level 1.9 mg/dL (1.8-2.4) Total Bilirubin 0.4 mg/dL (0.2-1.0) Aspartate Amino Transf (AST/SGOT) 21 U/L (15-37) Alanine Aminotransferase (ALT/SGPT) 24 U/L (14-59) Alkaline Phosphatase 75 U/L (46-116) Troponin I Quantitative < 0.017 ng/mL (0.000-0.055) < 0.017 ng/mL (0.000-0.055) < 0.017 ng/mL (0.000-0.055) FZ-Ijn-Q-Type Natriuretic Peptide 101 pg/mL (0-449) Total Protein 6.8 g/dL (6.4-8.2) Albumin 3.4 g/dL (3.4-5.0) Albumin/Globulin Ratio 1.0 (1.0-1.7) Lipase 102 U/L (73-393) Assessment/Plan Assessment/Plan Patient is a 75-year-old female presenting today due to chest pain and palpitations. As presented with this complaint in the past, follows with cardiology here. Chest pain, weakness, hypertension, atrial fibrillation, anxiety -Patient woke this morning with chest pain weakness -Took her blood pressure and it was 180/105 she then took her home metoprolol and losartan and then presented to the emergency room concerned she was having a heart attack -Lab work in emergency room relatively unremarkable -Admit for Obs -Cardiology consulted, follows with Dr Calloway here -DVT prophylaxis -Cardiac diet -As needed Ativan for anxiety; home citalopram resumed -Other home meds resumed as indicated Justifications for Admission Other Justification YEIMY FOY MD Jun 08, 2021 15:05
--- NOTE | 2021-06-08 15:16 | PDOC2 ---
NICOLE RODRÍGUEZ BOX TOE CEMENTER 06/08/21 1516: CARDIAC CONSULT DATE OF CONSULT Date of Consult DATE: 06/08/21 TIME: 15:12 REASON FOR CONSULT Reason for Consult: Chest pain, palpitations REFERRING PHYSICIAN Referring Physician: Andrew SOURCE Source: Chart review, Patient HISTORY OF PRESENT ILLNESS HISTORY OF PRESENT ILLNESS This is a pleasant 75 yo female admitted for complains of chest pain. Reports that she woke up this morning and felt weak and felt that her heart was beating hard and slightly dizzy. She checked her BP and it was 180/105. She is known for accelerated HTN but also hypotensive episodes. Her bP medications have been adjusted multiple times between cardiology and her PCP. Denies any nausea or vo miting. NO fever or chils. No MCKEON nor any stroke symptoms. She felt palpitations as well. Verbalized compliance of her medications. She has a loop recorder and she scanned it this morning to which she was not called for any report. PAST MEDICAL HISTORY Past Medical History Cardiovascular: HTN, Hyperlipidemia, PVCs Pulmonary: Other (SULEMAN) CENTRAL NERVOUS SYSTEM: Other (No pertinent history) GI: No pertinent hx Heme/Onc: No pertinent hx Hepatobiliary: No pertinent hx Psych: anxiety Musculoskeletal: Osteoarthritis, osteopenia Rheumatologic: Fibromyalgia Infectious disease: No pertinent hx Renal/: No pertinent hx Endocrine: Diabetes (pre) Dermatology: No pertinent hx PAST SURGICAL HISTORY Past Surgical History Arthroscopy (left knee), Cholecystectomy, Hysterectomy (vaginal), LHC, ILR FAMILY HISTORY Family History: Hypertension SOCIAL HISTORY Smoke: No ALCOHOL: none Drugs: None Lives: with Family ALLERGIES ALLERGIES: Coded Allergies: Iodinated Contrast Media (Verified Allergy, Intermediate, RASH/SWELLING/SKIN TURNS RED., 06/08/21) PATIENT NEEDS PRE-MEDICATED PRIOR TO ANY SCANS REQUIRING IV CONTRAST. shellfish derived (Verified Allergy, Intermediate, RED RASH/HIVES ALL OVER BODY, 06/08/21) ROS Review of System 14 point ROS evaluated with pertinent positives noted per HPI PHYSICAL EXAM General: Alert, Oriented X3, Cooperative, No acute distress HEENT: Atraumatic, Mucous membr. moist/pink Lungs: Clear to auscultation, Normal air movement Heart: Regular rate (SR), Normal S1, Normal S2, No murmurs Abdomen: Soft, No tenderness Extremities: No cyanosis, No edema Skin: No breakdown, No significant lesion Neuro: Normal speech, Sensation intact Psych/Mental Status: Mental status NL, Mood NL MUSCULOSKELETAL: Osteoarthritic changes both hands VITALS/I&O VITALS/I&O: Vital Signs Date Time Temp Pulse Resp B/P (MAP) Pulse Ox O2 Delivery O2 Flow Rate FiO2 06/08/21 12:36 62 20 139/77 (97) 95 Room Air 06/08/21 07:18 98.5 98.5 LABS Lab: Laboratory Tests Test 06/08/21 07:40 06/08/21 08:25 06/08/21 10:52 06/08/21 12:40 White Blood Count 5.5 x10^3/uL (4.0-11.0) Red Blood Count 4.33 x10^6/uL (3.50-5.40) Hemoglobin 13.2 g/dL (12.0-15.5) Hematocrit 38.6 % (36.0-47.0) Mean Corpuscular Volume 89 fL (79-100) Mean Corpuscular Hemoglobin 30 pg (25-35) Mean Corpuscular Hemoglobin Concent 34 g/dL (31-37) Red Cell Distribution Width 13.3 % (11.5-14.5) Platelet Count 273 x10^3/uL (140-400) Neutrophils (%) (Auto) 51 % (31-73) Lymphocytes (%) (Auto) 37 % (24-48) Monocytes (%) (Auto) 9 % (0-9) Eosinophils (%) (Auto) 2 % (0-3) Basophils (%) (Auto) 1 % (0-3) Neutrophils # (Auto) 2.8 x10^3/uL (1.8-7.7) Lymphocytes # (Auto) 2.0 x10^3/uL (1.0-4.8) Monocytes # (Auto) 0.5 x10^3/uL (0.0-1.1) Eosinophils # (Auto) 0.1 x10^3/uL (0.0-0.7) Basophils # (Auto) 0.1 x10^3/uL (0.0-0.2) Sodium Level 141 mmol/L (136-145) Potassium Level 3.9 mmol/L (3.5-5.1) Chloride Level 105 mmol/L (98-107) Carbon Dioxide Level 29 mmol/L (21-32) Anion Gap 7 (6-14) Blood Urea Nitrogen 12 mg/dL (7-20) Creatinine 0.6 mg/dL (0.6-1.0) Estimated GFR (Cockcroft-Gault) 96.9 BUN/Creatinine Ratio 20 (6-20) Glucose Level 106 mg/dL (70-99) H Calcium Level 9.4 mg/dL (8.5-10.1) Magnesium Level 1.9 mg/dL (1.8-2.4) Total Bilirubin 0.4 mg/dL (0.2-1.0) Aspartate Amino Transferase (AST) 21 U/L (15-37) Alanine Aminotransferase (ALT) 24 U/L (14-59) Alkaline Phosphatase 75 U/L (46-116) Troponin I Quantitative < 0.017 ng/mL (0.000-0.055) < 0.017 ng/mL (0.000-0.055) < 0.017 ng/mL (0.000-0.055) DI-Sco-H-Type Natriuretic Peptide 101 pg/mL (0-449) Total Protein 6.8 g/dL (6.4-8.2) Albumin 3.4 g/dL (3.4-5.0) Albumin/Globulin Ratio 1.0 (1.0-1.7) Lipase 102 U/L (73-393) Laboratory Tests 06/08/21 07:40 Laboratory Tests 06/08/21 08:25 ECHOCARDIOGRAM ECHOCARDIOGRAM <Conclusion> The left ventricle is normal size. The left ventricular systolic function is normal and the ejection fraction is within normal range. The Ejection Fraction is 50-55%. Doppler and Color Flow revealed no significant aortic regurgitation. There is no significant aortic valvular stenosis. Doppler and Color-flow revealed trace mitral regurgitation. Doppler and Color Flow revealed trace tricuspid regurgitation with an estimated PAP of 35 mmHg. DATE: 04/06/20 1218 HEART CATH HEART CATH A. RIGHT HEART CATHETERIZATION 1. Intracardiac pressures: Mean right atrial pressure 6 cm mercury, right ventricle pressure 55/3 mmHg, pulmonary artery 52/18 mmHg with mean PA pressure 33 mmHg, primary capillary wedge pressure 11 mmHg. Mild pulmonary hypertension. 2. Oxygen saturations: Right atrium 78.6%, pulmonary artery 78.4%, femoral arterial sheath 94.9%. No evidence of intracardiac shunt. 3. Cardiac output by thermodilution method 6.1 L/m and by Marimar method 5.9 L/m. B. LEFT HEART CATHETERIZATION 1. Hemodynamics: Left ventricle end diastolic pressure 25 mmHg consistent with chronic diastolic heart failure. No pullback gradient across the aortic valve. 2. Selective coronary angiography: a. The left main coronary artery arose from the left sinus of Valsalva, gave rise to the left anterior descending and left circumflex arteries and did not show any significant stenosis. b. The left anterior descending artery did not show any significant stenosis. c. The left circumflex artery did not show any significant stenosis. d. The right coronary artery was a large and dominant vessel arising from the right sinus of Valsalva that did not show any significant stenosis. Conclusion 1. No significant coronary artery disease 2. Mild pulmonary hypertension 3. Chronic diastolic heart failure 4. No evidence of intracardiac shunt Recommendations Medical Therapy DATE: 12/06/18 0859 ASSESSMENT/PLAN ASSESSMENT/PLAN 1. Atypical CP: due to accelerated HTN and anxiety 2. Accelerated HTN: now controlled 3. SULEMAN: uses CPAP 4. Anxiety 5. HLP 6. Obesity 7. Hx of fibromyalgia 8. Metabolic syndrome 9. ILR in situ: Interrogation revealed no associated arrhythmias Recommendations 1. Continue home BP meds. Apparently she has not been taking the hydralazine PRN as she was instructed to when she has high BP. Will further discuss. 2. Continue ASA/statin 3. No further cardiac workup, Anticipate home tomorrow ALIX JONES MD 06/09/21 0004: CARDIAC CONSULT ASSESSMENT/PLAN ASSESSMENT/PLAN Patient seen and examined. Agree with ASSOCIATE PROFESSOR OF SURGERY's assessment and plan CP with atypical features. OK ruled out Cardiac cath 2018 did not show any significant CAD Recent echo showed normal LVF Loop recorder interrogations did not show any arrhythmias so far BP better controlled since admission OK for DC and follow up as scheduled Thank you for your consultation NICOLE RODRÍGUEZ APRN Jun 08, 2021 15:16 ALIX JONES MD Jun 09, 2021 00:04
[2021-06-08 20:26] VITALS: BP 123/67
[2021-06-08] MEDS ORDERED: PANTOPRAZOLE 40 MG TABLET.DR. PO SCH (21:00)
[2021-06-08] MEDS ORDERED: CITALOPRAM 20 MG TABLET. PO SCH (21:00)
[2021-06-08] MEDS ORDERED: MULTIVITAMIN with MINERAL TABLET. PO SCH (21:00)
[2021-06-08] MEDS ORDERED: ASPIRIN CHEWABLE 81 MG TABLET. PO SCH (21:00)
[2021-06-08] MEDS: SENNOSIDES/DOCUSATE 8.6/50MG TABLET. PO SCH (22:30)
[2021-06-08] MEDS: HEPARIN for SUB-Q USE 5,000 UNIT/ML VIAL. SQ SCH (22:30)
[2021-06-08 22:34] VITALS: BP 147/74
[2021-06-09 02:32] VITALS: BP 122/61
[2021-06-09 07:00] VITALS: BP 142/73
[2021-06-09] MEDS: METOPROLOL SUCC 24HR ER 25 MG TAB.ER.24H. PO SCH (09:20)
[2021-06-09] MEDS: SENNOSIDES/DOCUSATE 8.6/50MG TABLET. PO SCH (09:20)
[2021-06-09] MEDS: LOSARTAN POTASSIUM 50 MG TABLET. PO SCH (09:20)
[2021-06-09] MEDS: HEPARIN for SUB-Q USE 5,000 UNIT/ML VIAL. SQ SCH (09:27)
[2021-06-09 11:00] VITALS: BP 119/70
--- NOTE | 2021-06-09 11:24 | PDOC ---
[facility] PROGRESS NOTE Date of Service DOS: DATE: 06/09/21 TIME: 11:18 Chief Complaint Chief Complaint Chest pain History of Present Illness History of Present Illness 06/09/2021 Pt seen and examined at bedside Pt claims she is anxious but otherwise NAD She explained how she has been dealing with a lot of deaths in the family due to covid Pt explained she has a loop recorder and would like to know more about her workup D/W RN D/W cardiology Chart reviewed Patient is 75-year-old female presented today due to chest pain and palpitations. Patient reports she awoke this morning and felt like her heart was pounding and she was having some midsternal chest pain with radiation to her left arm. She was very concerned she is having a heart attack but she presented here. Says her blood pressure at home was in the 180 systolic thus she took her losartan and half of metoprolol. Of note she says she has been here several times this year for a very similar presentation. She follows with Dr. Calloway of cardiology and says she had a loop recorder placed approximately in February for work-up of these episodes. Says she gets an episode like this every few months without any sort of positive findings on work-up. Will need to do full chart review to look at previous admissions. On presentation the emergency troponin and EKG were relatively unremarkable. Cardiology consulted. Patient has not received the Covid vaccine but has no Covid contacts that she is aware of. Patient is denying headache, vision changes, shortness of breath, abdominal pain, dysuria, joint pain. Vitals/I&O Vitals/I&O: Vital Signs Date Time Temp Pulse Resp B/P (MAP) Pulse Ox O2 Delivery O2 Flow Rate FiO2 06/09/21 09:20 70 142/73 06/09/21 07:00 97.3 18 99 Nasal Cannula 2.0 97.3 I & O 06/08/21 06/08/21 06/09/21 15:00 23:00 07:00 Intake Total 480 ml Balance 480 ml Physical Exam General: Alert, Oriented X3, Cooperative, No acute distress Heart: Regular rate (SR), Normal S1, Normal S2, No murmurs Lungs: Clear Abdomen: Soft, No tenderness Extremities: No cyanosis, No edema Skin: No breakdown, No significant lesion Labs Labs: Laboratory Tests Test 06/08/21 12:34 8/11/21 12:40 SARS-CoV-2 Antigen (Rapid) Negative (NEGATIVE) Troponin I Quantitative < 0.017 ng/mL (0.000-0.055) Review of Systems Review of Systems: Pt denies N/V Pt denies MCKEON or blurred vision Assessment and Plan Assessmemt and Plan 06/09/2021 Assessment: Chest pain Anxiety Plan: Cardiac monitoring Pt instructed to take hydralazine Pt counseled on the effects of anxiety Home Rx DVT prophylaxis Possible D/C Appreciate cardiology input Problems Medical Problems: (1) Chest pain Status: Acute Comment Review of Relevant I have reviewed the following items estephanie (where applicable) has been applied. Medications: Current Medications Medications (Trade) Dose Ordered Sig/Caesar Route PRN Reason Start Time Stop Time Status Last Admin Dose Admin Senna/Docusate Sodium (Senna Plus) 1 tab BID PO 06/08/21 21:00 06/09/21 09:20 Heparin Sodium (Porcine) (Heparin Sodium) 5,000 unit Q12HR SQ 06/08/21 21:00 06/09/21 09:27 Aspirin (Aspirin Chewable) 81 mg HS PO 06/08/21 21:00 06/08/21 22:00 Citalopram Hydrobromide (CeleXA) 20 mg HS PO 06/08/21 21:00 06/08/21 22:30 Losartan Potassium (Cozaar) 25 mg BID PO 06/08/21 12:00 06/09/21 09:20 Metoprolol Succinate (Toprol Xl) 25 mg BID PO 06/08/21 12:00 06/09/21 09:20 Multivitamins (Thera M Plus) 1 tab HS PO 06/08/21 21:00 06/08/21 22:30 Pantoprazole Sodium (Protonix) 40 mg HS PO 06/08/21 21:00 06/08/21 22:30 Justifications for Admission Other Justification DORENE FRANCISCO III DO Jun 09, 2021 11:24
--- NOTE | 2021-06-09 12:34 | DS ---
DATE OF DISCHARGE: 06/09/2021 ADMITTING DIAGNOSIS: Chest pain. DISCHARGE DIAGNOSES: Atypical chest pain, history of anxiety, depression, loop recorder, AFib, bronchitis, depression, gastroesophageal reflux disease, hyperlipidemia, hypertension, obstructive sleep apnea, premature ventricular contractions, cholecystectomy, hysterectomy, left knee replacement. CONSULTS: Cardiology. PROCEDURES: None. HOSPITAL COURSE: The patient is a pleasant elderly female who presented with chest pain. She is well known to our service. 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 We admitted the patient, did serial enzymes, serial EKGs. We consulted Cardiology. I discussed the case with Cardiology this morning, I also examined the patient this morning. Her workup was negative. They feel like this is anxiety induced and she was not taking her hydralazine. She admits she does not take it sometimes. Today, she looks great. We are going to discharge her home with close outpatient followup. DISPOSITION: Home. ACTIVITY: As tolerated. DIET: Low sodium. MEDICATIONS: Please see the MRAD. Hydralazine, aspirin 81 a day, calcium, citalopram 20 every day, losartan 20 b.i.d., metoprolol 25 a day, vitamins and omeprazole 20 a day. Total time 31 minutes. [address]: Aretha TID: [id number]
--- NOTE | 2021-06-09 12:37 | PDOC ---
CARDIO Progress Notes Date and Time Date of Service 06/09/2021 Time of Evaluation 1200 Subjective Subjective: No Chest Pain, No shortness of breath, No Palpitations Vitals Vitals Vital Signs Date Time Temp Pulse Resp B/P (MAP) Pulse Ox O2 Delivery O2 Flow Rate FiO2 06/09/21 11:00 97.7 59 20 119/70 (86) 96 Room Air 97.7 06/09/21 07:00 2.0 Weight Weight [ ] Input and Output Intake and Output Intake and Output 06/09/21 07:00 Intake Total 480 ml Balance 480 ml Intake Oral 480 ml # Voids 2 Laboratory Labs Laboratory Tests Test 06/08/21 12:40 Troponin I Quantitative < 0.017 ng/mL (0.000-0.055) Physical Exam HEENT: Neck Supple W Full Motion Chest: Symmetric LUNGS: Clear to Auscultation Heart: S1S2, RRR (SR) Abdomen: Soft N/T Extremities: No Edema, No Calf Tenderness Neurology: alert, oriented, follow commands Assessment Assessment 1. Atypical CP: due to accelerated HTN and anxiety 2. Accelerated HTN: now controlled 3. SULEMAN: uses CPAP 4. Anxiety: per PCP 5. HLP 6. Obesity 7. Hx of fibromyalgia 8. Metabolic syndrome 9. ILR in situ: Interrogation revealed no associated arrhythmias Recommendations 1. Continue home BP meds. Discussed HBPM and PRN hydralazine use 2. Continue ASA/statin 3. May DC per cardiac perspective Justicifation of Admission Dx: Justifications for Admission: Justification of Admission Dx: N/A NICOLE RODRÍGUEZ APRN Jun 09, 2021 12:37
--- NOTE | 2021-06-09 13:35 | NUR ---
SS following for discharge planning. SS reviewed pt chart and discussed with pt RN. Pt is from home with spouse and is currently on room air. Discharge order on the chart for home with self care.
--- NOTE | 2021-06-09 13:59 | NUR ---
Discharge Note: TIANNA ABDUL [address] Discharge instructions and discharge home medications reviewed with Patient and a copy given. All questions have been answered and understanding verbalized. The following instructions and handouts were given: chest pain, echo Patient discharged to home with spouse via private vehicle. IV out, monitor off and placed at nursing station.
== END 2021-06-09 13:35 | disposition home or self-care (01) ==
LOC: ER 07:11 → 6 SOUTH 10:20 → ER 12:58
PROVIDERS: ADMIT Student in an Organized Health Care Education/Training Program; ATTEND Student in an Organized Health Care Education/Training Program
DX: R07.2 Precordial pain (principal); Z20.822 Contact with and (suspected) exposure to COVID-19; I48.91 Unspecified atrial fibrillation; F41.9 Anxiety disorder, unspecified; F32.9 Major depressive disorder, single episode, unspecified; K21.9 Gastro-esophageal reflux disease without esophagitis; E78.00 Pure hypercholesterolemia, unspecified; I10 Essential (primary) hypertension; E11.9 Type 2 diabetes mellitus without complications; E78.5 Hyperlipidemia, unspecified; G47.33 Obstructive sleep apnea (adult) (pediatric); E66.9 Obesity, unspecified; E88.81 Metabolic syndrome and other insulin resistance; J40 Bronchitis, not specified as acute or chronic; M79.7 Fibromyalgia; R53.1 Weakness; R53.83 Other fatigue; Z90.710 Acquired absence of both cervix and uterus; Z82.49 Family history of ischemic heart disease and other diseases of the circulatory system; Z90.49 Acquired absence of other specified parts of digestive tract; Z98.890 Other specified postprocedural states; Z96.652 Presence of left artificial knee joint
CPT/HCPCS: 36415; 71045; 80053; 83690; 83735; 83880; 84484; 85025; 87426; 96372; 99285; G0378; J1644; G0379

== ENCOUNTER 2021-07-01 01:31 | Inpatient (IN) | payer MEDICARE ==
[~2021-07-01] VITALS: Ht 162.6 cm; Wt 78.0 kg
[2021-07-01 02:01] LABS: BASO # 0.1 x10^3/uL (0.0-0.2); BASO % 1 % (0-3); EOS # 0.1 x10^3/uL (0.0-0.7); EOS % 2 % (0-3); HEMATOCRIT 35.6 % (36.0-47.0); HEMOGLOBIN 12.2 g/dL (12.0-15.5); LYMPH # 1.7 x10^3/uL (1.0-4.8); LYMPH % 27 % (24-48); MEAN CORPUSCULAR HEMOGLOBIN 30 pg (25-35); MEAN CORPUSCULAR HGB CONC 34 g/dL (31-37); MEAN CORPUSCULAR VOLUME 89 fL (79-100); MONO # 0.5 x10^3/uL (0.0-1.1); MONO % 8 % (0-9); NEUT # 3.9 x10^3/uL (1.8-7.7); NEUT % 61 % (31-73); PLATELET COUNT 233 x10^3/uL (140-400); RED BLOOD COUNT 4.02 x10^6/uL (3.50-5.40); RED CELL DISTRIBUTION WIDTH 13.6 % (11.5-14.5); WHITE BLOOD COUNT 6.3 x10^3/uL (4.0-11.0)
--- NOTE | 2021-07-01 02:06 | PHYS DOC ---
Past Medical History Past Medical History: A-Fib, Anxiety, Arrhythmia, Bronchitis, Depression, GERD, High Cholesterol, Hypertension, Other Additional Past Medical Histor: Sleep Apnea, PVC, "borderline DM" Past Surgical History: Cholecystectomy, Hysterectomy Additional Past Surgical Histo: L KNEE, loop recorder placed Smoking Status: Never Smoker Alcohol Use: None Drug Use: None General Adult EDM: Chief Complaint: CHEST PAIN HPI: HPI: Patient is a 75 year old female who was brought here by EMS from home due to chest pain. Patient says she woke up about 1 hour ago with heart palpitation, having chest pressure so she called EMS to take her here for evaluation. Patient says she was admitted here last month for the same problem, did not find out anything wrong. Patient has a history of hypertension, denies any history of diabetic or history of coronary artery disease. Patient denies any cough or fever. Patient was not vaccinated for COVID-19. Review of Systems: Review of Systems: Constitutional: Denies fever or chills. [] Eyes: Denies change in visual acuity. [] HENT: Denies nasal congestion or sore throat. [] Respiratory: Denies cough or shortness of breath. [] Cardiovascular: Positive for chest pain, no edema, positive for heart palpitation GI: Denies abdominal pain, nausea, vomiting, bloody stools or diarrhea. [] : Denies dysuria. [] Musculoskeletal: Denies back pain or joint pain. [] Integument: Denies rash. [] Neurologic: Denies headache, focal weakness or sensory changes. [] Endocrine: Denies polyuria or polydipsia. [] Lymphatic: Denies swollen glands. [] Psychiatric: Denies depression or anxiety. [] Heart Score: C/O Chest Pain: Yes HEART Score for Chest Pain: HEART Score for Chest Pain Response (Comments) Value History Slighlty/Non-Suspicious 0 ECG Normal 0 Age > 65 2 Risk Factors 1 or 2 Risk Factors 1 Troponin < Normal Limit 0 Total 3 Risk Factors: Risk Factors: DM, Current or recent (<one month) smoker, HTN, HLP, family history of CAD, obesity. Risk Scores: Score 0 - 3: 2.5% MACE over next 6 weeks - Discharge Home Score 4 - 6: 20.3% MACE over next 6 weeks - Admit for Clinical Observation Score 7 - 10: 72.7% MACE over next 6 weeks - Early Invasive Strategies Allergies: Allergies: Allergies Coded Allergies Type Severity Reaction Last Updated Verified Iodinated Contrast Media Allergy Intermediate RASH/SWELLING/SKIN TURNS RED. 06/08/21 Yes shellfish derived Allergy Intermediate RED RASH/HIVES ALL OVER BODY 06/08/21 Yes Physical Exam: PE: Constitutional: Well developed, well nourished, no acute distress, non-toxic appearance. [] HENT: Normocephalic, atraumatic, bilateral external ears normal, oropharynx moist, no oral exudates, nose normal. [] Eyes: PERRLA, EOMI, conjunctiva normal, no discharge. [] Neck: Normal range of motion, no tenderness, supple, no stridor. [] Cardiovascular:Heart rate regular rhythm, no murmur [] Lungs & Thorax: Bilateral breath sounds clear to auscultation [] Abdomen: Bowel sounds normal, soft, no tenderness, no masses, no pulsatile masses. [] Skin: Warm, dry, no erythema, no rash. [] Back: No tenderness, no CVA tenderness. [] Extremities: No tenderness, no cyanosis, no clubbing, ROM intact, no edema. [] Neurologic: Alert and oriented X 3, normal motor function, normal sensory function, no focal deficits noted. [] Psychologic: Affect normal, judgement normal, mood normal. [] Current Patient Data: Labs: Laboratory Tests Test 07/01/21 01:50 White Blood Count 6.3 x10^3/uL Red Blood Count 4.02 x10^6/uL Hemoglobin 12.2 g/dL Hematocrit 35.6 % Mean Corpuscular Volume 89 fL Mean Corpuscular Hemoglobin 30 pg Mean Corpuscular Hemoglobin Concent 34 g/dL Red Cell Distribution Width 13.6 % Platelet Count 233 x10^3/uL Neutrophils (%) (Auto) 61 % Lymphocytes (%) (Auto) 27 % Monocytes (%) (Auto) 8 % Eosinophils (%) (Auto) 2 % Basophils (%) (Auto) 1 % Neutrophils # (Auto) 3.9 x10^3/uL Lymphocytes # (Auto) 1.7 x10^3/uL Monocytes # (Auto) 0.5 x10^3/uL Eosinophils # (Auto) 0.1 x10^3/uL Basophils # (Auto) 0.1 x10^3/uL Sodium Level 142 mmol/L Potassium Level 3.7 mmol/L Chloride Level 105 mmol/L Carbon Dioxide Level 30 mmol/L Anion Gap 7 Blood Urea Nitrogen 12 mg/dL Creatinine 0.7 mg/dL Estimated GFR (Cockcroft-Gault) 81.1 BUN/Creatinine Ratio 17 Glucose Level 139 mg/dL Calcium Level 9.3 mg/dL Magnesium Level 1.8 mg/dL Total Bilirubin 0.2 mg/dL Aspartate Amino Transf (AST/SGOT) 17 U/L Alanine Aminotransferase (ALT/SGPT) 26 U/L Alkaline Phosphatase 73 U/L Troponin I Quantitative < 0.017 ng/mL CJ-Htq-O-Type Natriuretic Peptide 117 pg/mL Total Protein 6.7 g/dL Albumin 3.3 g/dL Albumin/Globulin Ratio 1.0 Lipase 133 U/L Current Medications Medications (Trade) Dose Ordered Sig/Caesar Route PRN Reason Start Time Stop Time Status Last Admin Dose Admin Lorazepam (Ativan Inj) 1 mg 1X ONCE IVP 07/01/21 03:30 07/01/21 03:31 DC 07/01/21 03:42 Metoprolol Tartrate (Lopressor Vial) 5 mg 1X ONCE IVP 07/01/21 04:00 07/01/21 04:02 DC Ondansetron HCl (Zofran) 4 mg PRN Q8HRS PRN IVP NAUSEA/VOMITING 07/01/21 04:30 07/02/21 04:29 EKG: EKG: EKG was done at 144, heart rate 82 bpm, sinus rhythm, no ST segment elevation, left axis deviation, Radiology/Procedures: Radiology/Procedures: [][facility] [address] [place] [address] IMAGING REPORT Signed PATIENT: TIANNA ABDUL V ACCOUNT: [id number] : 1945 LOCATION: ER AGE: 75 SEX: F EXAM STATUS: REG ER ORD. PHYSICIAN: MATHEUS ESPINO DO REASON: chest pain PROCEDURE: PORTABLE CHEST 1V EXAM: XR CHEST 1V 07/01/2021 1:49 AM CLINICAL INDICATION: Chest pain COMPARISON: Chest radiograph 06/08/2021 TECHNIQUE: AP upright view of the chest FINDINGS: The heart is normal in size. There are calcifications in the thoracic aorta. The right hemidiaphragm is elevated. Unchanged calcified granuloma in the right lung base. There is no consolidation, pleural effusion, or pneumothorax. No acute osseous abnormality. IMPRESSION: No acute cardiopulmonary abnormality. Electronically signed by: Rocío Aquino MD (07/01/2021 2:33 AM) [id number] DICTATED and SIGNED BY: ROCÍO AQUINO MD DATE: 07/01/21 [id number] Course & Med Decision Making: Course & Med Decision Making Pertinent Labs and Imaging studies reviewed. (See chart for details) Patient is a 75-year-old female who was brought here by EMS from home due to chest pain or palpitation. Cardiac enzyme and EKG came back normal so far. Patient blood pressure was elevated. Her chest pain might be related to anxiety. Patient will be admitted for observation. Dragon Disclaimer: Dragon Disclaimer: This electronic medical record was generated, in whole or in part, using a voice recognition dictation system. Departure Departure Impression: Primary Impression: Chest pain Additional Impression: HTN (hypertension) Disposition: ADMITTED INPATIENT Admitting Physician: ERNIE (DR. FRANCISCO) Condition: IMPROVED Referrals: CARMINA GONZÁLES DO (PCP) MATHEUS ESPINO DO Jul 01, 2021 02:06
[2021-07-01 02:12] LABS: CALCIUM 9.3 mg/dL (8.5-10.1); CREATININE 0.7 mg/dL (0.6-1.0); GFR 81.1; POTASSIUM 3.7 mmol/L (3.5-5.1)
[2021-07-01 02:18] LABS: ALBUMIN 3.3 g/dL (3.4-5.0); MAGNESIUM 1.8 mg/dL (1.8-2.4); TOTAL BILIRUBIN 0.2 mg/dL (0.2-1.0); TOTAL PROTEIN 6.7 g/dL (6.4-8.2)
--- NOTE | 2021-07-01 02:35 | RAD ---
EXAM: XR CHEST 1V 07/01/2021 1:49 AM CLINICAL INDICATION: Chest pain COMPARISON: Chest radiograph 06/08/2021 TECHNIQUE: AP upright view of the chest FINDINGS: The heart is normal in size. There are calcifications in the thoracic aorta. The right hem idiaphragm is elevated. Unchanged calcified granuloma in the right lung base. There is no consolidati on, pleural effusion, or pneumothorax. No acute osseous abnormality. IMPRESSION: No acute cardiopulmonary abnormality. Electronically signed by: Rocío Aquino MD (07/01/2021 2:33 AM) [id number]
--- NOTE | 2021-07-01 03:05 | EKG ---
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
[2021-07-01] MEDS ORDERED: METOPROLOL IV PUSH 5 MG/5 ML VIAL. IVP ONE (04:00)
[2021-07-01] MEDS ORDERED: ONDANSETRON PF 4 MG/2 ML VIAL. IVP PRN (04:30)
[2021-07-01] MEDS: METOPROLOL SUCC 24HR ER 25 MG TAB.ER.24H. PO SCH ×2 (11:28→21:39)
[2021-07-01] MEDS: LOSARTAN POTASSIUM 25 MG TABLET. PO SCH ×2 (11:29→21:38)
--- NOTE | 2021-07-01 13:27 | HP ---
ADMIT DATE: 07/01/2021 CHIEF COMPLAINT: Chest pain. HISTORY OF PRESENT ILLNESS: The patient is a pleasant 75-year-old female well known to our service. 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 Once again, she presents with chest pain. In the past, she has had some problems with anxiety as well, although she does have known history of cardiac issues. Please see below. I discussed the case with ER physician. We are going to admit the patient and consult Cardiology. PAST MEDICAL HISTORY: Loop recorder, AFib, anxiety, arrhythmias, bronchitis, depression, GERD, hyperlipidemia, hypertension, obstructive sleep apnea, PVCs, borderline diabetes, cholecystectomy, hysterectomy, knee replacement. ALLERGIES: IODINE AND SHELLFISH. FAMILY HISTORY: Coronary artery disease. 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 She does not drink, smoke or take drugs. She is to [place]. He is here with her. MEDICATIONS: Reviewed, please refer to the MRAD. REVIEW OF SYSTEMS: GENERAL: No history of weight change, weakness or fevers. SKIN: No bruising, hair changes or rashes. EYES: No blurred, double or loss of vision. NOSE AND THROAT: No history of nosebleeds, hoarseness or sore throat. HEART: No history of palpitations, chest pain or shortness of breath on exertion. LUNGS: Denies cough, hemoptysis, wheezing or shortness of breath. GASTROINTESTINAL: Denies changes in appetite, nausea, vomiting, diarrhea or constipation. GENITOURINARY: No history of frequency, urgency, hesitancy or nocturia. NEUROLOGIC: Denies history of numbness, tingling, tremor or weakness. PSYCHIATRIC: No history of panic, anxiety or depression. ENDOCRINE: No history of heat or cold intolerance, polyuria or polydipsia. EXTREMITIES: Denies muscle weakness, joint pain, pain on walking or stiffness. PHYSICAL EXAMINATION: VITALS: Within normal limits and are stable. GENERAL: No apparent distress. Alert and oriented. HEENT: Normal cephalic atraumatic, external auditory canals are patent EYES: Extraocular muscles are intact, pupils are equally round and reactive to light and accommodation MUSCULOSKELETAL: Well developed, well nourished, good range of motion. ENDOCRINE: No thyromegaly was palpated. LYMPHATICS: No cervical chain or axillary nodes were noted. HEMATOPOIETIC: No bruising. NECK: Supple, no JVD, no thyromegaly was noted. LUNGS: Clear to auscultation in all lung olivera without rhonchi or wheezing. HEART: RRR, S1, S2 present. Peripheral pulses intact, no obvious murmurs were noted. ABDOMEN: Soft, nontender. Positive bowel sounds no organomegaly, normal bowel sounds. EXTREMITIES: Without any cyanosis, clubbing, or edema. Pedal pulses intact, Homans sign is negative. NEUROLOGIC: Normal speech, normal tone. A and O x3, moves all extremities, no obvious focal deficits. PSYCHIATRIC: Normal affect, normal mood. Stable. SKIN: No ulcerations or rashes, good skin turgor, no jaundice. VASCULAR: Good capillary refill, neurovascular bundle appears to be intact. DIAGNOSTIC DATA: Troponin is 0. BNP 117. Hematology is normal. COVID testing is negative. Chest x-ray negative. ASSESSMENT AND PLAN: Chest pain. The patient will be admitted. We will check serial enzymes, serial EKGs, cardiac monitoring. Consult cardiology. Home meds, deep venous thrombosis prophylaxis. Full code. P.r.n. lorazepam. MARK/CHARBEL DR: MARK/santiago TID: [id number]
[2021-07-01 15:15] VITALS: BP 138/76
--- NOTE | 2021-07-01 15:52 | EKG ---
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
[2021-07-01 19:15] VITALS: BP 146/69
[2021-07-01] MEDS ORDERED: PANTOPRAZOLE 40 MG TABLET.DR. PO SCH (21:00)
[2021-07-01] MEDS ORDERED: CITALOPRAM 20 MG TABLET. PO SCH (21:00)
[2021-07-01] MEDS ORDERED: MULTIVITAMIN with MINERAL TABLET. PO SCH (21:00)
[2021-07-01] MEDS ORDERED: ASPIRIN CHEWABLE 81 MG TABLET. PO SCH (21:00)
[2021-07-01] MEDS ORDERED: CALCIUM CARBONATE 500 MG TABLET PO SCH (21:00)
[2021-07-01 23:10] VITALS: BP 138/60
[2021-07-02 03:10] VITALS: BP 157/83
[2021-07-02 07:00] VITALS: BP 147/76
[2021-07-02] MEDS: METOPROLOL SUCC 24HR ER 25 MG TAB.ER.24H. PO SCH (08:26)
[2021-07-02] MEDS: LOSARTAN POTASSIUM 25 MG TABLET. PO SCH (08:26)
[2021-07-02] MEDS: ACETAMINOPHEN 325 MG TABLET. PO PRN ×2 (09:39→15:38)
[2021-07-02 11:00] VITALS: BP 131/78
--- NOTE | 2021-07-02 12:43 | PDOC2 ---
CONSULT Date of Consult Date of Consult DATE: 07/02/21 TIME: 12:43 Reason for Consult Reason for Consult: Chest pain and palpitations Referring Physician Referring Physician: Dr. Mccormick Identification/Chief Complaint Chief Complaint Chest pain and palpitations Source Source: Chart review, Patient History of Present Illness Reason for Visit: 75-year-old female with history of recurrent palpitations of uncertain etiology s/p loop recorder implantation who was recently discharged from [facility] after being worked up for chest pain and palpitations presented stating that she had an episode of palpitations associated with mild dyspnea and chest pain while she was reading a book at home. She had another similar episode last night but telemetry did not show any arrhythmias. Loop recorder interrogations in the [facility] t have not shown any arrhythmias as well. She denied any orthopnea/PND or syncope. Past Medical History Cardiovascular: HTN, Hyperlipidemia Pulmonary: Other CENTRAL NERVOUS SYSTEM: Other GI: No pertinent hx Heme/Onc: No pertinent hx Hepatobiliary: No pertinent hx Psych: No pertinent hx Musculoskeletal: Osteoarthritis Rheumatologic: Fibromyalgia Infectious disease: No pertinent hx Renal/: No pertinent hx Endocrine: Diabetes Past Surgical History Past Surgical History: Arthroscopy, Cholecystectomy, Hysterectomy Family History Family History: Hypertension Social History ALCOHOL: none Drugs: None Lives: with Family Current Problem List Problem List Problems Medical Problems: (1) Chest pain Status: Acute (2) HTN (hypertension) Status: Acute Current Medications Current Medications Current Medications Lorazepam (Ativan Inj) 1 mg 1X ONCE IVP Last administered on 07/01/21at 03:42; Start 07/01/21 at 03:30; Stop 07/01/21 at 03:31; Status DC Metoprolol Tartrate (Lopressor Vial) 5 mg 1X ONCE IVP ; Start 07/01/21 at 04:00; Stop 07/01/21 at 04:02; Status DC Ondansetron HCl (Zofran) 4 mg PRN Q8HRS PRN IVP NAUSEA/VOMITING; Start 07/01/21 at 04:30; Stop 07/02/21 at 04:29; Status DC Aspirin (Aspirin Chewable) 81 mg HS PO Last administered on 07/01/21at 21:38; Start 07/01/21 at 21:00 Citalopram Hydrobromide (CeleXA) 20 mg HS PO Last administered on 07/01/21at 21:39; Start 07/01/21 at 21:00 Losartan Potassium (Cozaar) 25 mg BID PO Last administered on 07/02/21at 08:26; Start 07/01/21 at 13:00 Metoprolol Succinate (Toprol Xl) 25 mg BID PO Last administered on 07/02/21at 08:26; Start 07/01/21 at 13:00 Calcium Carbonate/ Glycine (Oscal) 500 mg HS PO Last administered on 07/01/21at 2 1:39; Start 07/01/21 at 21:00 Multivitamins (Thera M Plus) 1 tab HS PO Last administered on 07/01/21at 21:39; Start 07/01/21 at 21:00 Pantoprazole Sodium (Protonix) 40 mg HS PO Last administered on 07/01/21at 21:38; Start 07/01/21 at 21:00 Acetaminophen (Tylenol) 650 mg PRN Q6HRS PRN PO MILD PAIN / TEMP > 100.3'F Last administered on 07/02/21at 09:39; Start 07/02/21 at 08:45 Active Scripts Active Reported Losartan Potassium 50 Mg Tablet 25 Mg PO BID Metoprolol Succinate ( Xl ) (Metoprolol Succinate) 25 Mg Tab.er.24h 25 Mg PO BID Calcium (Calcium Carbonate) 600 Mg Tablet 600 Mg PO HS Citalopram Hbr (Citalopram Hydrobromide) 20 Mg Tablet 20 Mg PO HS Aspirin 81 Mg Tab.chew 81 Mg PO HS Multivitamins (Multivitamin) 1 Each Tablet 1 Each PO HS Prilosec Otc (Omeprazole Magnesium) 20 Mg Tablet.dr 20 Mg PO HS Allergies Allergies: Coded Allergies: Iodinated Contrast Media (Verified Allergy, Intermediate, RASH/SWELLING/SKIN TURNS RED., 06/08/21) PATIENT NEEDS PRE-MEDICATED PRIOR TO ANY SCANS REQUIRING IV CONTRAST. shellfish derived (Verified Allergy, Intermediate, RED RASH/HIVES ALL OVER BODY, 06/08/21) ROS PSYCHOLOGICAL ROS: No: Hallucinations Eyes: No Loss of vision HEENT: No: Epistaxis Respiratory: YES: Shortness of breath; No: Hemoptysis Cardiovascular: yes Chest Pain, yes Palpitations Gastrointestinal: No Vomiting Genitourinary: No Hematuria Neurological: No Seizures Physical Exam General: Alert, Oriented X3 HEENT: Atraumatic Lungs: Clear to auscultation Heart: Regular rate Abdomen: Soft Extremities: No edema Psych/Mental Status: Mood NL Vitals VITALS Vital Signs Date Time Temp Pulse Resp B/P (MAP) Pulse Ox O2 Delivery O2 Flow Rate FiO2 07/02/21 11:00 97.6 58 16 131/78 (95) 94 Room Air 97.6 07/02/21 07:00 2.0 Labs Labs Laboratory Tests Test 07/01/21 01:50 07/01/21 06:03 07/01/21 08:23 White Blood Count 6.3 x10^3/uL (4.0-11.0) Red Blood Count 4.02 x10^6/uL (3.50-5.40) Hemoglobin 12.2 g/dL (12.0-15.5) Hematocrit 35.6 % (36.0-47.0) Mean Corpuscular Volume 89 fL (79-100) Mean Corpuscular Hemoglobin 30 pg (25-35) Mean Corpuscular Hemoglobin Concent 34 g/dL (31-37) Red Cell Distribution Width 13.6 % (11.5-14.5) Platelet Count 233 x10^3/uL (140-400) Neutrophils (%) (Auto) 61 % (31-73) Lymphocytes (%) (Auto) 27 % (24-48) Monocytes (%) (Auto) 8 % (0-9) Eosinophils (%) (Auto) 2 % (0-3) Basophils (%) (Auto) 1 % (0-3) Neutrophils # (Auto) 3.9 x10^3/uL (1.8-7.7) Lymphocytes # (Auto) 1.7 x10^3/uL (1.0-4.8) Monocytes # (Auto) 0.5 x10^3/uL (0.0-1.1) Eosinophils # (Auto) 0.1 x10^3/uL (0.0-0.7) Basophils # (Auto) 0.1 x10^3/uL (0.0-0.2) Sodium Level 142 mmol/L (136-145) Potassium Level 3.7 mmol/L (3.5-5.1) Chloride Level 105 mmol/L (98-107) Carbon Dioxide Level 30 mmol/L (21-32) Anion Gap 7 (6-14) Blood Urea Nitrogen 12 mg/dL (7-20) Creatinine 0.7 mg/dL (0.6-1.0) Estimated GFR (Cockcroft-Gault) 81.1 BUN/Creatinine Ratio 17 (6-20) Glucose Level 139 mg/dL (70-99) Calcium Level 9.3 mg/dL (8.5-10.1) Magnesium Level 1.8 mg/dL (1.8-2.4) Total Bilirubin 0.2 mg/dL (0.2-1.0) Aspartate Amino Transf (AST/SGOT) 17 U/L (15-37) Alanine Aminotransferase (ALT/SGPT) 26 U/L (14-59) Alkaline Phosphatase 73 U/L (46-116) Troponin I Quantitative < 0.017 ng/mL (0.000-0.055) < 0.017 ng/mL (0.000-0.055) MN-Jry-B-Type Natriuretic Peptide 117 pg/mL (0-449) Total Protein 6.7 g/dL (6.4-8.2) Albumin 3.3 g/dL (3.4-5.0) Albumin/Globulin Ratio 1.0 (1.0-1.7) Lipase 133 U/L (73-393) SARS-CoV-2 RNA (LUCA) Negative (Negative) SARS-CoV-2 Antigen (Rapid) Negative (NEGATIVE) Images Images ECHOCARDIOGRAM ECHOCARDIOGRAM <Conclusion> The left ventricle is normal size. The left ventricular systolic function is normal and the ejection fraction is within normal range. The Ejection Fraction is 50-55%. Doppler and Color Flow revealed no significant aortic regurgitation. There is no significant aortic valvular stenosis. Doppler and Color-flow revealed trace mitral regurgitation. Doppler and Color Flow revealed trace tricuspid regurgitation with an estimated PAP of 35 mmHg. DATE: 04/06/20 1218 HEART CATH HEART CATH A. RIGHT HEART CATHETERIZATION 1. Intracardiac pressures: Mean right atrial pressure 6 cm mercury, right ventricle pressure 55/3 mmHg, pulmonary artery 52/18 mmHg with mean PA pressure 33 mmHg, primary capillary wedge pressure 11 mmHg. Mild pulmonary hypertension. 2. Oxygen saturations: Right atrium 78.6%, pulmonary artery 78.4%, femoral arterial sheath 94.9%. No evidence of intracardiac shunt. 3. Cardiac output by thermodilution method 6.1 L/m and by Marimar method 5.9 L/m. B. LEFT HEART CATHETERIZATION 1. Hemodynamics: Left ventricle end diastolic pressure 25 mmHg consistent with chronic diastolic heart failure. No pullback gradient across the aortic valve. 2. Selective coronary angiography: a. The left main coronary artery arose from the left sinus of Valsalva, gave rise to the left anterior descending and left circumflex arteries and did not show any significant stenosis. b. The left anterior descending artery did not show any significant stenosis. c. The left circumflex artery did not show any significant stenosis. d. The right coronary artery was a large and dominant vessel arising from the right sinus of Valsalva that did not show any significant stenosis. Conclusion 1. No significant coronary artery disease 2. Mild pulmonary hypertension 3. Chronic diastolic heart failure 4. No evidence of intracardiac shunt Recommendations Medical Therapy Assessment/Plan Assessment/Plan 1. Recurrent palpitations, most probably secondary to anxiety. Loop recorder interrogations thus far did not show any significant arrhythmias. She had similar episode last night but telemetry did not show any arrhythmias. We will continue to monitor her loop recorder for any arrhythmias. 2. Chest pain with atypical features. Myocardial infarction has been ruled out. Recent 2D echo showed LVEF 50 to 55% and cardiac catheterization in 2019 did not show any significant coronary artery disease. 3. Hypertension: Better controlled since admission continue current medical regimen. Thank you for your consultation ALIX JONES MD Jul 02, 2021 12:43
[2021-07-02 15:00] VITALS: BP 108/64
--- NOTE | 2021-07-02 18:38 | NUR ---
Discharge Note: TIANNA ABDUL [address] Discharge instructions and discharge home medications reviewed with Patient and a copy given. All questions have been answered and understanding verbalized. The following instructions and handouts were given: Chest pain, palpitations Patient discharged to home with self care via and private vehicle. IV out, monitor off and placed at nursing station
--- NOTE | 2021-07-03 14:37 | PDOC3 ---
Discharge Summary Visit Information Date of Admission: Jul 01, 2021 Date of Discharge: Jul 02, 2021 Final Diagnosis chest pain Recurrent palpitations, most probably secondary to anxiety. depression and anxiety disorder Loop recorder interrogations thus far did not show any significant arrhyth mias. Recent 2D echo showed LVEF 50 to 55% and cardiac catheterization in 2019 did not show any significant coronary artery disease. Hypertension: Better controlled since admission Problems Medical Problems: (1) Chest pain Status: Acute (2) HTN (hypertension) Status: Acute Brief Hospital Course Allergies Allergies Coded Allergies Type Severity Reaction Last Updated Verified Iodinated Contrast Media Allergy Intermediate RASH/SWELLING/SKIN TURNS RED. 09/18 Yes shellfish derived Allergy Intermediate RED RASH/HIVES ALL OVER BODY 06/08/21 Yes Vital Signs Vital Signs Date Time Temp Pulse Resp B/P (MAP) Pulse Ox O2 Delivery O2 Flow Rate FiO2 07/02/21 15:00 97.8 65 16 108/64 (79) 94 Room Air 97.8 07/02/21 07:00 2.0 Brief Hospital Course Ms. Schwab is a 75 old female, admit with chest pain, poss esophageal or vasospasm, acute ches tpin, better, HR reg, sinus 60, bp up on admit, very normal for DC pt was very worried about what could cause this, and I feel like I went throught he 27 causes of chest pain that are not life threatening, and she kept telling me " Im just sure it is my heart and you will find the problem on my autopsy", she also denied anxiety or thoughts of depression Assessment Assessment prior heart cath, no sig CAD, Discharge Information Condition at Discharge: Improved Follow Up: Weeks Disposition/Orders: D/C to Home Scheduled Aspirin (Aspirin) 81 Mg Tab.chew, 81 MG PO HS for heart healthy, (Reported) Entered as Reported by: DEVON QUINN on 10/18/18 0743 Last Action: Continued on 07/01/211100 by KYRA ROMERO Calcium Carbonate (Calcium) 600 Mg Tablet, 600 MG PO HS for , (Reported) Entered as Reported by: JOLEEN SHEEHAN RN on 05/28/20 0569 Last Action: Converted on 07/01/211100 by KYRA ROMERO Citalopram Hydrobromide (Citalopram Hbr) 20 Mg Tablet, 20 MG PO HS for depression, (Reported) Entered as Reported by: DEVON QUINN on 10/18/18 0745 Last Action: Continued on 07/01/211100 by KYRA ROMERO Losartan Potassium (Losartan Potassium) 50 Mg Tablet, 25 MG PO BID for HYPERTE NSION, (Reported) Entered as Reported by: BRIANNA GARLAND on 11/18/200 Last Action: Continued on 07/01/211100 by KYRA ROMERO Metoprolol Succinate (Metoprolol Succinate ( Xl )) 25 Mg Tab.er.24h, 25 MG PO BID for FOR HYPERTENSION, #30 Ref 0 (Reported) Entered as Reported by: JOLEEN SHEEHAN RN on 05/28/20 0558 Last Action: Continued on 07/01/211100 by KYRA ROMERO Multivitamin (Multivitamins) 1 Each Tablet, 1 EACH PO HS for supplement, (Reported) Entered as Reported by: DEVON QUINN on 10/18/18 0741 Last Action: Converted on 07/01/211100 by KYRA ROMERO Omeprazole Magnesium (Prilosec Otc) 20 Mg Tablet.dr, 20 MG PO HS for heart burn, (Reported) Entered as Reported by: DEVON QUINN on 10/18/18 0740 Last Action: Converted on 07/01/211100 by KYRA ROMERO Patient Instructions Patient Instructions 2 visits, talked with patient and her , 55 minutes, including long face to face Justicifation of Admission Dx: Justifications for Admission: Justification of Admission Dx: N/A VICNENT DUMONT MD Jul 03, 2021 14:37
== END 2021-07-02 18:00 | disposition home or self-care (01) | DRG 392 ==
LOC: ER 01:31 → ED HOLD 04:00 → 6 SOUTH 05:08 → ED HOLD 13:59 → 6 SOUTH 15:18
PROVIDERS: ADMIT Internal Medicine; ATTEND Internal Medicine
DX: K21.9 Gastro-esophageal reflux disease without esophagitis (principal); I73.9 Peripheral vascular disease, unspecified; E11.9 Type 2 diabetes mellitus without complications; E78.00 Pure hypercholesterolemia, unspecified; E78.5 Hyperlipidemia, unspecified; F32.9 Major depressive disorder, single episode, unspecified; F41.9 Anxiety disorder, unspecified; I10 Essential (primary) hypertension; I48.91 Unspecified atrial fibrillation; M79.7 Fibromyalgia; Z82.49 Family history of ischemic heart disease and other diseases of the circulatory system; Z90.710 Acquired absence of both cervix and uterus; M19.90 Unspecified osteoarthritis, unspecified site; R07.89 Other chest pain; Z20.822 Contact with and (suspected) exposure to COVID-19; Z91.013 Allergy to seafood
CPT/HCPCS: 36415; 71045; 80053; 83690; 83735; 83880; 84484; 85025; 87426; 93005; 96374; J2060; U0003; U0005; 99285-25; G0378

== ENCOUNTER → 2021-08-24 | Outpatient (CLI) | payer MEDICARE ==
[~2021-08-24] MED LIST changes: -LISI-517 PO; +LISI5TAB15 PO
--- NOTE | 2021-08-24 11:18 | CARD ---
MR#: [id number] Date of Study: 08/24/2021 Ordering Physician: ALIX JONES, Referring Physician: ALIX JONES Tech: Ankita Pete [facility] APPROVED REPORT EXAM: Two-dimensional and M-mode echocardiogram with Doppler and color Doppler. Other Information Quality : Average INDICATION Cardiac Disease: RISK FACTORS Hypertension Obesity Hyperlipidemia 2D DIMENSIONS RVDd3.6 (2.9-3.5cm)Left Atrium(2D)3.7 (1.6-4.0cm) IVSd1.1 (0.7-1.1cm)Aortic Root(2D)3.0 (2.0-3.7cm) LVDd4.4 (3.9-5.9cm)LVOT Diameter1.9 (1.8-2.4cm) PWd1.0 (0.7-1.1cm)LVDs2.7 (2.5-4.0cm) FS (%) 38.6 %SV60.5 ml LVEF(%)69.1 (>50%) Aortic Valve AoV Peak Farhad.176.2cm/sAoV VTI38.0cm AO Peak GR.12.4mmHgLVOT Peak Farhad.147.1cm/s AO Mean GR.6mmHgAVA (VMAX)2.40cm2 Mitral Valve MV E Yvlpowot70.8cm/sMV DECEL [id number] MV A Msuostsu02.8cm/sE/A Ratio0.8 Pulmonary Valve PV Peak Piseuegd002.6cm/s Tricuspid Valve TR P. Knjhymtq531uk/sTR Peak Gr.17mmHg LEFT VENTRICLE The left ventricle is normal size. There is borderline concentric left ventricular hypertrophy. The l eft ventricular systolic function is normal and the ejection fraction is within normal range. Estimat ed ejection fraction 60%. There is normal LV segmental wall motion. Transmitral Doppler flow pattern is Grade I-abnormal relaxation pattern. RIGHT VENTRICLE The right ventricle is normal size. There is normal right ventricular wall thickness. The right ventr icular systolic function is normal. ATRIA The left atrium is mildly dilated. The right atrium is mildly dilated. The interatrial septum is inta ct with no evidence for an atrial septal defect or patent foramen ovale as noted on 2-D or Doppler im aging. AORTIC VALVE The aortic valve is normal in structure and function. Doppler and Color Flow revealed no significant aortic regurgitation. There is no significant aortic valvular stenosis. MITRAL VALVE The mitral valve is normal in structure and function. There is no evidence of mitral valve prolapse. There is no mitral valve stenosis. Doppler and Color-flow revealed trace mitral regurgitation. TRICUSPID VALVE The tricuspid valve is normal in structure and function. Doppler and Color Flow revealed mild tricusp id regurgitation. Estimated PAP 20 mmHg. There is no tricuspid valve stenosis. PULMONIC VALVE Doppler and Color Flow revealed no pulmonic valvular regurgitation. There is no pulmonic valvular mamta nosis. GREAT VESSELS The aortic root is normal in size. The ascending aorta is normal in size. The IVC is normal in size a nd collapses >50% with inspiration. PERICARDIAL EFFUSION There is no evidence of significant pericardial effusion. Critical Notification Critical Value: No <Conclusion> The left ventricular systolic function is normal and the ejection fraction is within normal range. E stimated ejection fraction 60%. There is normal LV segmental wall motion. Signed by : Ignacio Mckeon, Electronically Approved : 08/24/2021 11:17:41
== END ==
LOC: ECHO 09:29
PROVIDERS: ATTEND Internal Medicine Cardiovascular Disease
DX: I36.1 Nonrheumatic tricuspid (valve) insufficiency (principal); I51.7 Cardiomegaly; R06.09 Other forms of dyspnea
CPT/HCPCS: 93306

== ENCOUNTER → 2021-09-12 | Outpatient (CLI) | payer MEDICARE ==
--- NOTE | 2021-09-12 10:16 | RAD ---
MR#: [id number] Date of Study: 09/12/2021 Ordering Physician: ALIX JONES, Referring Physician: ALIX JONES, Tech: Anthony Sutherland MBA, RDMS, RVT, RDCS, RTR APPROVED REPORT Patient Location: OUT-PATIENT Indications Uncontrolled HTN Renal Artery Doppler Right Renal Artery Left Renal Arter y Proximal 174.0/39.0 cm/secProximal 131.0/39.0 cm/sec Mid 159.0/38.0 cm/secMid 121.0/34.0 cm/sec Distal 111.0/19.0 cm/secDistal 86.0/22.0 cm/sec Renal/Aorta Ratio 1.50Renal/Aorta Ratio 1.10 Prox. Resistive Index 0.78Prox. Resistive Index 0.70 Mid Resistive Index 0.76Mid Resistive Index 0.72 Distal Resistive Index 0.83Distal Resistive Index 0.74 Rt. Segmental A. 50.0/15.0 cm/secLt. Segmental A. 42.0/11.0 cm/sec Renal Measurements RightLeft Kidney Length9.2 cm cmKidney Mkoztg27.6 cm cm Right Additional FindingsLeft Additional Findings Aortic Duplex A/PTransverseLongitudinal Proximal Aorta 2.1cm Aortic Doppler VelocityWaveform Proximal Aorta 115.0 cm/sec Findings Technically difficult images of the bilateral kidneys. The aorta was not well visualized but grossly has moderate atherosclerosis. Grossly normal proximal, mid and distal renal artery velocities of the bilateral renal arteries. Normal renal to aortic ratios. Critical Notification Critical Value: No <Conclusion> 1. Technically difficult study 2. No clear evidence of renal artery stenosis bilaterally. Signed by : Ignacio Mckeon, Electronically Approved : 09/12/2021 10:16:15
== END ==
LOC: US 08:45
PROVIDERS: ATTEND Internal Medicine Cardiovascular Disease
DX: I70.0 Atherosclerosis of aorta (principal); I10 Essential (primary) hypertension
CPT/HCPCS: 93975

== ENCOUNTER 2022-02-01 13:20 | Inpatient (IN) | payer MEDICARE ==
[~2022-02-01] VITALS: Ht 157.5 cm; Wt 78.4 kg
--- NOTE | 2022-02-01 13:42 | PHYS DOC ---
Past Medical History Past Medical History: A-Fib, Anxiety, Arrhythmia, Bronchitis, Depression, Diabetes-Type II (prediabets), Fibromyalgia, GERD, High Cholesterol, Hypertension, Other Additional Past Medical Histor: Sleep Apnea, PVC, "borderline DM" Past Surgical History: Cholecystectomy, Hysterectomy, Other Additional Past Surgical Histo: L KNEE, loop recorder placed, CARDIAC CATH Smoking Status: Never Smoker Alcohol Use: None Drug Use: None General Adult EDM: Chief Complaint: CHEST PAIN HPI: HPI: Patient is a 76 year old female with history of A. fib, anxiety, depression, prediabetes, hypertension, high cholesterol, fibromyalgia, who presents to the ED today complaining of chest pain described as heavyiness in the middle of her chest, she states she does not have any chest pain right now. Patient states symptoms began at noon today. She states she also has associated shortness of breath, irregular heartbeat, and dizziness. Denies anything exacerbating or relieving her symptoms. She states she had a negative cardiac cath in 2019 and currently has a loop recorder she she states she connected to the monitor and message was sent to senior office support assistant sosa Dr. Calloway Review of Systems: Review of Systems: Constitutional: Denies fever or chills. [] Eyes: Denies change in visual acuity. [] HENT: Denies nasal congestion or sore throat. [] Respiratory: Reports shortness of breath, denies cough Cardiovascular: Reports chest heaviness, irregular heartbeat, GI: Denies abdominal pain, nausea, vomiting, bloody stools or diarrhea. [] : Denies dysuria. [] Musculoskeletal: Denies back pain or joint pain. [] Integument: Denies rash. [] Neurologic: Reports dizziness. Denies headache, focal weakness or sensory changes. [] [] Psychiatric: Denies depression or anxiety. [] Heart Score: C/O Chest Pain: Yes HEART Score for Chest Pain: HEART Score for Chest Pain Response (Comments) Value History Slighlty/Non-Suspicious 0 ECG Normal 0 Age > 65 2 Risk Factors >3 Risk Factors or Hx CAD 2 Troponin < Normal Limit 0 Total 4 Risk Factors: Risk Factors: DM, Current or recent (<one month) smoker, HTN, HLP, family history of CAD, obesity. Risk Scores: Score 0 - 3: 2.5% MACE over next 6 weeks - Discharge Home Score 4 - 6: 20.3% MACE over next 6 weeks - Admit for Clinical Observation Score 7 - 10: 72.7% MACE over next 6 weeks - Early Invasive Strategies Current Medications: Current Medications Medications (Trade) Dose Ordered Sig/Caesar Start Time Stop Time Status Last Admin Dose Admin Aspirin (Mavis Aspirin) 325 mg 1X ONCE 02/01/22 13:45 02/01/22 13:46 Morphine Sulfate (Morphine Sulfate) 4 mg PRN Q15MIN PRN 02/01/22 13:45 02/02/22 13:44 Nitroglycerin (Nitrostat) 0.4 mg PRN Q5MIN PRN 02/01/22 13:45 02/02/22 13:44 Allergies: Allergies: Allergies Coded Allergies Type Severity Reaction Last Updated Verified Iodinated Contrast Media Allergy Intermediate RASH/SWELLING/SKIN TURNS RED. 06/08/21 Yes shellfish derived Allergy Intermediate RED RASH/HIVES ALL OVER BODY 06/08/21 Yes Physical Exam: PE: Constitutional: Well developed, well nourished, no acute distress, non-toxic appearance. [] HENT: Normocephalic, atraumatic, bilateral external ears normal, oropharynx moist, no oral exudates, nose normal. [] Eyes: PERRLA, EOMI, conjunctiva normal, no discharge. [] Neck: Normal range of motion, no tenderness, supple, no stridor. [] Cardiovascular:Heart rate regular rhythm, no murmur [] Lungs & Thorax: Bilateral breath sounds clear to auscultation [] Abdomen: Bowel sounds normal, soft, no tenderness, no masses, no pulsatile masses. [] Skin: Warm, dry, no erythema, no rash. [] Back: No tenderness, no CVA tenderness. [] Extremities: No tenderness, no cyanosis, no clubbing, ROM intact, no edema. [] Neurologic: Alert and oriented X 3, normal motor function, normal sensory function, no focal deficits noted. [] Psychologic: Affect normal, judgement normal, mood normal. [] EKG: EK interpreted by Dr. Barboza sinus rhythm heart rate 69 no STEMI [] Radiology/Procedures: Radiology/Procedures: []PROCEDURE: PORTABLE CHEST 1V Single view of the chest. 02/01/2022 1:37 PM Indication: Reason: chest pain / Comparison: Chest radiograph June 08, 2021 Findings: Mild cardiomegaly appears be present. No pneumothorax. No pleural effusion. Is no focal infiltrate is seen. Cardiac monitoring device projects over the left chest. No acute osseous changes are seen. IMPRESSION: No radiographic evidence of acute cardiopulmonary process Electronically signed by: José Miguel Miller MD (02/01/2022 2:16 PM) [id number] DICTATED and SIGNED BY: JOSÉ MIGUEL MILLER MD DATE: 02/01/22 1415 Course & Med Decision Making: Course & Med Decision Making Pertinent Labs and Imaging studies reviewed. (See chart for details) This a 76-year-old female patient presented to the ED today complaining of chest pressure, shortness of breath, irregular heartbeat, dizziness, symptoms began at noon today. Patient had a negative cardiac cath in 2019. EKG, high-sensitivity troponin, CBC CMP TSH completely normal. Chest xray is negative. Spoke with Dr. Mccormick who accepted patient for admission Spoke with [facility] [employer] who will f/u with patient in one week. Amos cardiology [employer] came and saw patient. Mine Disclaimer: Mine Disclaimer: This electronic medical record was generated, in whole or in part, using a voice recognition dictation system. Departure Departure Impression: Primary Impression: Chest pain Qualified Codes: R07.9 - Chest pain, unspecified Additional Impressions: Dizziness Shortness of breath Disposition: ADMITTED INPATIENT Condition: STABLE Referrals: CARMINA GONZÁLES DO (PCP) VIOLA MESA APRN Feb 01, 2022 13:42
[2022-02-01] MEDS ORDERED: ASPIRIN 325 MG TABLET PO ONE (13:45)
[2022-02-01] MEDS ORDERED: MORPHINE SULFATE 4 MG/ML INJ. IV/SQ PRN (13:45)
[2022-02-01] MEDS ORDERED: NITROGLYCERIN SUBLINGUAL 0.4 MG BOTTLE OF 25. SL PRN ×2 (13:45→14:00)
[2022-02-01 13:51] LABS: BASO % 1 % (0-3); EOS # 0.1 x10^3/uL (0.0-0.7); EOS % 2 % (0-3); HEMATOCRIT 39.1 % (36.0-47.0); HEMOGLOBIN 12.9 g/dL (12.0-15.5); LYMPH # 1.4 x10^3/uL (1.0-4.8); LYMPH % 28 % (24-48); MEAN CORPUSCULAR HEMOGLOBIN 30 pg (25-35); MEAN CORPUSCULAR HGB CONC 33 g/dL (31-37); MEAN CORPUSCULAR VOLUME 90 fL (79-100); MONO # 0.4 x10^3/uL (0.0-1.1); MONO % 9 % (0-9); NEUT # 3.1 x10^3/uL (1.8-7.7); NEUT % 62 % (31-73); PLATELET COUNT 224 x10^3/uL (140-400); RED BLOOD COUNT 4.35 x10^6/uL (3.50-5.40); RED CELL DISTRIBUTION WIDTH 13.4 % (11.5-14.5)
[2022-02-01] MEDS ORDERED: ONDANSETRON PF 4 MG/2 ML VIAL. IVP PRN (14:00)
[2022-02-01] MEDS ORDERED: MORPHINE SULFATE 4 MG/ML INJ. IVP PRN (14:00)
--- NOTE | 2022-02-01 14:02 | PDOC2 ---
NICOLE RODRÍGUEZ CULTURAL HISTORIAN 02/01/22 1402: CARDIAC CONSULT DATE OF CONSULT Date of Consult DATE: 02/01/22 TIME: 13:59 REASON FOR CONSULT Reason for Consult: Chest pain REFERRING PHYSICIAN Referring Physician: Brandt SOURCE Source: Chart review, Patient HISTORY OF PRESENT ILLNESS HISTORY OF PRESENT ILLNESS This is a pleasant 76 yo female admitted for complains of chest pain, dizziness. Reports she got up and was walking inside her house when she felt dizzy and felt like her surrounding was spinning. She sat down and felt that she could not take a deep breath and having some chest tightness. Also felt some skipping beats in her heart. No recent falls or injury. No recent viral symptoms. She rarely gets vertigo. Denies being panic. Reported med compliance. No diffuse MCKEON and auditory or visual changes/deficits. PAST MEDICAL HISTORY Past Medical History Cardiovascular: AFIB, HTN, Hyperlipidemia Pulmonary: Other (SULEMAN ) Psych: Anxiety, Depression Musculoskeletal: Osteoarthritis Rheumatologic: Fibromyalgia PAST SURGICAL HISTORY Past Surgical History Arthroscopy, Cholecystectomy, Hysterectomy, ILR FAMILY HISTORY Family History: Hypertension SOCIAL HISTORY Smoke: No ALCOHOL: none Drugs: None Lives: with Family ALLERGIES ALLERGIES: Coded Allergies: Iodinated Contrast Media (Verified Allergy, Intermediate, RASH/SWELLING/SKIN TURNS RED., 06/08/21) PATIENT NEEDS PRE-MEDICATED PRIOR TO ANY SCANS REQUIRING IV CONTRAST. shellfish derived (Verified Allergy, Intermediate, RED RASH/HIVES ALL OVER BODY, 06/08/21) ROS Review of System 14 point ROS evaluated with pertinent positives noted per HPI PHYSICAL EXAM General: Alert, Oriented X3, Cooperative, No acute distress HEENT: Atraumatic, Mucous membr. moist/pink Lungs: Clear to auscultation, Normal air movement Heart: Regular rate (SR), Normal S1, Normal S2, No murmurs Abdomen: Soft, No tenderness Extremities: No cyanosis, No edema Skin: No breakdown, No significant lesion Neuro: Normal speech, Sensation intact Psych/Mental Status: Mental status NL, Mood NL MUSCULOSKELETAL: Osteoarthritic changes both hands VITALS/I&O VITALS/I&O: Vital Signs Date Time Temp Pulse Resp B/P (MAP) Pulse Ox O2 Delivery O2 Flow Rate FiO2 02/01/22 13:31 97.5 71 20 158/76 (103) 97 Room Air 97.5 LABS Lab: Laboratory Tests Test 02/01/22 13:33 White Blood Count 5.0 x10^3/uL (4.0-11.0) Red Blood Count 4.35 x10^6/uL (3.50-5.40) Hemoglobin 12.9 g/dL (12.0-15.5) Hematocrit 39.1 % (36.0-47.0) Mean Corpuscular Volume 90 fL (79-100) Mean Corpuscular Hemoglobin 30 pg (25-35) Mean Corpuscular Hemoglobin Concent 33 g/dL (31-37) Red Cell Distribution Width 13.4 % (11.5-14.5) Platelet Count 224 x10^3/uL (140-400) Neutrophils (%) (Auto) 62 % (31-73) Lymphocytes (%) (Auto) 28 % (24-48) Monocytes (%) (Auto) 9 % (0-9) Eosinophils (%) (Auto) 2 % (0-3) Basophils (%) (Auto) 1 % (0-3) Neutrophils # (Auto) 3.1 x10^3/uL (1.8-7.7) Lymphocytes # (Auto) 1.4 x10^3/uL (1.0-4.8) Monocytes # (Auto) 0.4 x10^3/uL (0.0-1.1) Eosinophils # (Auto) 0.1 x10^3/uL (0.0-0.7) Basophils # (Auto) 0.0 x10^3/uL (0.0-0.2) Laboratory Tests 02/01/22 13:33 ECHOCARDIOGRAM ECHOCARDIOGRAM <Conclusion> The left ventricular systolic function is normal and the ejection fraction is within normal range. Estimated ejection fraction 60%. There is normal LV segmental wall motion. DATE: 08/24/21 [id number] 0 HEART CATH HEART CATH HEART CATH A. RIGHT HEART CATHETERIZATION 1. Intracardiac pressures: Mean right atrial pressure 6 cm mercury, right ventricle pressure 55/3 mmHg, pulmonary artery 52/18 mmHg with mean PA pressure 33 mmHg, primary capillary wedge pressure 11 mmHg. Mild pulmonary hypertension. 2. Oxygen saturations: Right atrium 78.6%, pulmonary artery 78.4%, femoral arterial sheath 94.9%. No evidence of intracardiac shunt. 3. Cardiac output by thermodilution method 6.1 L/m and by Marimar method 5.9 L/m. B. LEFT HEART CATHETERIZATION 1. Hemodynamics: Left ventricle end diastolic pressure 25 mmHg consistent with chronic diastolic heart failure. No pullback gradient across the aortic valve. 2. Selective coronary angiography: a. The left main coronary artery arose from the left sinus of Valsalva, gave rise to the left anterior descending and left circumflex arteries and did not show any significant stenosis. b. The left anterior descending artery did not show any significant stenosis. c. The left circumflex artery did not show any significant stenosis. d. The right coronary artery was a large and dominant vessel arising from the right sinus of Valsalva that did not show any significant stenosis. Conclusion 1. No significant coronary artery disease 2. Mild pulmonary hypertension 3. Chronic diastolic heart failure 4. No evidence of intracardiac shunt Recommendations Medical Therapy 12/06/2018 ASSESSMENT/PLAN ASSESSMENT/PLAN 1. Chest pain: non cardiac. possibly from anxiety. Trop nml no acute EKG changes 2. PAFIB: SR. low burden 3. HTN: controlled 4. HLP 5. ILR in situ: recent check revealed no contributing arrhythmia 6. anxiety 7. Vertigo Recommendations 1. PT to eval for eply and lc hallpike maneuvers 2. Continue secondary prevention measures 3. Would consider for outpt stress test if symptoms are recurrent. 4. Trend trop. Anticipate DC tomorrow. ALIX JONES MD 02/01/222112: CARDIAC CONSULT ASSESSMENT/PLAN ASSESSMENT/PLAN Patient seen and examined. Agree with HIGH MAN's assessment and plan CP with atypical features and most prob non cardiac OR ruled out PAF maintaining SR - recent loop recorder check did not show any significant arrhythmias Plan ischemic evaluation as outpatient Thank you for your consultation NICOLE RODRÍGUEZ APRN Feb 01, 2022 14:02 ALIX JONES MD Feb 01, 2022 21:13
[2022-02-01 14:04] LABS: CALCIUM 9.3 mg/dL (8.5-10.1); CREATININE 0.6 mg/dL (0.6-1.0); GFR 96.7; POTASSIUM 4.2 mmol/L (3.5-5.1)
[2022-02-01 14:10] LABS: ALBUMIN 3.7 g/dL (3.4-5.0); ALBUMIN/GLOBULIN RATIO 1.1 (1.0-1.7); MAGNESIUM 1.8 mg/dL (1.8-2.4); TOTAL BILIRUBIN 0.3 mg/dL (0.2-1.0)
--- NOTE | 2022-02-01 14:18 | RAD ---
Single view of the chest. 02/01/2022 1:37 PM Indication: Reason: chest pain / Comparison: Chest radiograph June 08, 2021 Findings: Mild cardiomegaly appears be present. No pneumothorax. No pleural effusion. Is no focal inf iltrate is seen. Cardiac monitoring device projects over the left chest. No acute osseous changes are seen. IMPRESSION: No radiographic evidence of acute cardiopulmonary process Electronically signed by: José Miguel Barroso MD (02/01/2022 2:16 PM) [id number]
--- NOTE | 2022-02-01 14:48 | HP ---
DATE OF SERVICE: 02/01/2022 ADMIT DATE: 02/01/2022 CHIEF COMPLAINT: Lightheadedness, weakness, palpitations, chest discomfort. 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 Once again, she presents with chest discomfort with palpitations, weakness and dizziness, it has been occurring for several days. She states she has a loop recorder, but is not aware of it contacting her enrober for anything serious. I discussed the case with ER physician. We are going to admit the patient and consult Cardiology. PAST MEDICAL HISTORY: AFib, hypertension, hyperlipidemia, anxiety, depression, osteoarthritis, fibromyalgia, loop recorder, cholecystectomy, hysterectomy, ILR and arthroplasty. FAMILY HISTORY: Hypertension. SOCIAL HISTORY: She is recently remarried 2 years ago. Her new , Олег is here. He seems to be good support for her. She is previously . Does not drink, smoke or take drugs. 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 MEDICATIONS: Reviewed, please refer to the MRAD. REVIEW OF SYSTEMS: GENERAL: No history of weight change, weakness or fevers. SKIN: No bruising, hair changes or rashes. EYES: No blurred, double or loss of vision. NOSE AND THROAT: No history of nosebleeds, hoarseness or sore throat. HEART: She complains of chest discomfort, palpitations. LUNGS: Denies cough, hemoptysis, wheezing or shortness of breath. GASTROINTESTINAL: Denies changes in appetite, nausea, vomiting, diarrhea or constipation. GENITOURINARY: No history of frequency, urgency, hesitancy or nocturia. NEUROLOGIC: Denies history of numbness, tingling, tremor or weakness. PSYCHIATRIC: No history of panic, anxiety or depression. ENDOCRINE: No history of heat or cold intolerance, polyuria or polydipsia. EXTREMITIES: Denies muscle weakness, joint pain, pain on walking or stiffness. PHYSICAL EXAMINATION: VITALS: Within normal limits and are stable. GENERAL: No apparent distress. Alert and oriented. HEENT: Normal cephalic atraumatic, external auditory canals are patent EYES: Extraocular muscles are intact, pupils are equally round and reactive to light and accommodation MUSCULOSKELETAL: Well developed, well nourished, good range of motion ENDOCRINE: No thyromegaly was palpated LYMPHATICS: No cervical chain or axillary nodes were noted HEMATOPOIETIC: No bruising NECK: Supple, no JVD, no thyromegaly was noted. LUNGS: Clear to auscultation in all lung olivera without rhonchi or wheezing. HEART: RRR, S1, S2 present. Peripheral pulses intact, no obvious murmurs were noted. ABDOMEN: Soft, nontender. Positive bowel sounds no organomegaly, normal bowel sounds. EXTREMITIES: Without any cyanosis, clubbing, or edema. Pedal pulses intact, Homans sign is negative. NEUROLOGIC: Normal speech, normal tone. A and O x 3, moves all extremities, no obvious focal deficits. PSYCHIATRIC: Normal affect, normal mood. Stable. SKIN: No ulcerations or rashes, good skin turgor, no jaundice. VASCULAR: Good capillary refill, neurovascular bundle appears to be intact. LABORATORY DATA: Hematology is normal. Electrolytes are normal. Troponin is pending. Chest x-ray results are pending. I did review the chest film myself that shows poor inspiratory effort, but the lungs appear clear with her normal cardiac silhouette. ASSESSMENT AND PLAN: Chest discomfort, palpitations in an elderly female with the above noted comorbidities. The patient will be admitted. We will start normal cardiac workup including serial enzymes, serial EKGs. Consult Cardiology. Cardiac monitoring, home meds, DVT prophylaxis. Full Code. P.r.n. nitro, p.r.n. morphine. [facility] [place] DR: Aretha TID: [id number]
[2022-02-01 15:28] LABS: BACTERIA,URINE 0 /HPF (0-FEW); BARBITURATES NEG (NEG); BENZODIAZEPINES NEG (NEG); CANNABINOIDS NEG (NEG); COCAINE NEG (NEG); METHADONE NEG (NEG); OPIATES POS (NEG); PHENCYCLIDINE NEG (NEG); RBC,URINE 0 /HPF (0-2); WBC,URINE 0 /HPF (0-4)
[2022-02-01 15:31] LABS: AMPHETAMINE/METHAMPHETAMINE NEG (NEG)
[2022-02-01 15:55] VITALS: BP 130/64
[2022-02-01] MEDS: ACETAMINOPHEN 325 MG TABLET. PO PRN (18:17)
[2022-02-01 19:00] VITALS: BP 136/61
[2022-02-01] MEDS ORDERED: CITALOPRAM 20 MG TABLET. PO SCH (21:00)
[2022-02-01] MEDS: METOPROLOL SUCC 24HR ER 25 MG TAB.ER.24H. PO SCH (21:05)
[2022-02-01] MEDS: LOSARTAN POTASSIUM 50 MG TABLET. PO SCH (21:05)
[2022-02-01 23:00] VITALS: BP 130/73
[2022-02-02 03:00] VITALS: BP 167/89
[2022-02-02 05:23] LABS: ALBUMIN 3.5 g/dL (3.4-5.0); CALCIUM 9.5 mg/dL (8.5-10.1); CREATININE 0.6 mg/dL (0.6-1.0); GFR 96.7; POTASSIUM 4.2 mmol/L (3.5-5.1); TOTAL BILIRUBIN 0.4 mg/dL (0.2-1.0)
[2022-02-02 06:35] LABS: BASO % 1 % (0-3); EOS # 0.1 x10^3/uL (0.0-0.7); EOS % 2 % (0-3); HEMOGLOBIN 12.8 g/dL (12.0-15.5); LYMPH % 42 % (24-48); MEAN CORPUSCULAR HEMOGLOBIN 29 pg (25-35); MEAN CORPUSCULAR HGB CONC 32 g/dL (31-37); MEAN CORPUSCULAR VOLUME 91 fL (79-100); MONO # 0.4 x10^3/uL (0.0-1.1); MONO % 9 % (0-9); NEUT # 2.2 x10^3/uL (1.8-7.7); NEUT % 46 % (31-73); PLATELET COUNT 218 x10^3/uL (140-400); RED BLOOD COUNT 4.42 x10^6/uL (3.50-5.40); RED CELL DISTRIBUTION WIDTH 13.4 % (11.5-14.5); WHITE BLOOD COUNT 4.7 x10^3/uL (4.0-11.0)
[2022-02-02 07:00] VITALS: BP 172/72
[2022-02-02] MEDS ORDERED: PANTOPRAZOLE 40 MG TABLET.DR. PO SCH (07:30)
[2022-02-02] MEDS: LOSARTAN POTASSIUM 50 MG TABLET. PO SCH (08:29)
[2022-02-02] MEDS: METOPROLOL SUCC 24HR ER 25 MG TAB.ER.24H. PO SCH (08:30)
--- NOTE | 2022-02-02 10:24 | EKG ---
[facility] [address] [place] [address] Test Date: 2022-02-01 Test Time: 13:27:11 Pat Name: TIANNA CAI Department: Room: 210 1 Gender: F Environmental Compliance Specialist: : 1945 Requested By: VIOLA MESA Order Number: [id number] Reading MD: Gee Calloway Measurements Intervals [place] Rate: 69 P: 7 CO: 188 QRS: -15 QRSD: 92 T: 29 QT: 368 QTc: 396 Interpretive Statements SINUS RHYTHM LEFTWARD AXIS LEFT VENTRICULAR HYPERTROPHY ABNORMAL ECG RI6.02 No previous ECG available for comparison Electronically Signed On 02-11-2022 9:05:44 CDT by Gee Calloway
--- NOTE | 2022-02-02 10:25 | EKG ---
[facility] [address] [place] [address] Test Date: 2022-02-01 Test Time: 14:13:22 Pat Name: TIANNA CAI Department: Room: 210 1 Gender: F Cold Strip Feeder: : 1945 Requested By: VIOLA MESA Order Number: [id number] Reading MD: Gee Calloway Measurements Intervals [place] Rate: 62 P: 20 IA: 202 QRS: -13 QRSD: 90 T: 21 QT: 360 QTc: 367 Interpretive Statements SINUS RHYTHM LEFTWARD AXIS Electronically Signed On 02-11-2022 9:05:30 CDT by Gee Calloway
[2022-02-02 11:00] VITALS: BP 106/61
--- NOTE | 2022-02-02 11:08 | PDOC ---
[employer] PROGRESS NOTE Date of Service DOS: DATE: 02/02/22 TIME: 11:07 Chief Complaint Chief Complaint Chest discomfort Suspect anxiety History of the following;AFib, hypertension, hyperlipidemia, anxiety, depression, osteoarthritis, fibromyalgia, loop recorder, cholecystectomy, hysterectomy, ILR and arthroplasty. History of Present Illness History of Present Illness 02/02/2022 Patient seen and examined Discussed with RN Chart reviewed The patient seems to be at her baseline We will discharge if okay with cardio Vitals/I&O Vitals/I&O: Vital Signs Date Time Temp Pulse Resp B/P (MAP) Pulse Ox O2 Delivery O2 Flow Rate FiO2 02/02/22 08:30 69 167/89 02/02/22 08:00 Room Air 02/02/22 07:00 97.5 19 93 97.5 I & O 02/01/22 02/01/22 02/02/22 15:00 23:00 07:00 Intake Total 200 ml Balance 200 ml Physical Exam General: Alert, Oriented X3, Cooperative, No acute distress Heart: Regular rate (SR), Normal S1, Normal S2, No murmurs Lungs: Clear Abdomen: Soft, No tenderness Extremities: No cyanosis, No edema Skin: No breakdown, No significant lesion Labs Labs: Laboratory Tests Test 02/01/22 13:33 02/01/22 15:05 02/01/22 16:40 02/01/22 19:40 White Blood Count 5.0 x10^3/uL (4.0-11.0) Red Blood Count 4.35 x10^6/uL (3.50-5.40) Hemoglobin 12.9 g/dL (12.0-15.5) Hematocrit 39.1 % (36.0-47.0) Mean Corpuscular Volume 90 fL (79-100) Mean Corpuscular Hemoglobin 30 pg (25-35) Mean Corpuscular Hemoglobin Concent 33 g/dL (31-37) Red Cell Distribution Width 13.4 % (11.5-14.5) Platelet Count 224 x10^3/uL (140-400) Neutrophils (%) (Auto) 62 % (31-73) Lymphocytes (%) (Auto) 28 % (24-48) Monocytes (%) (Auto) 9 % (0-9) Eosinophils (%) (Auto) 2 % (0-3) Basophils (%) (Auto) 1 % (0-3) Neutrophils # (Auto) 3.1 x10^3/uL (1.8-7.7) Lymphocytes # (Auto) 1.4 x10^3/uL (1.0-4.8) Monocytes # (Auto) 0.4 x10^3/uL (0.0-1.1) Eosinophils # (Auto) 0.1 x10^3/uL (0.0-0.7) Basophils # (Auto) 0.0 x10^3/uL (0.0-0.2) Sodium Level 144 mmol/L (136-145) Potassium Level 4.2 mmol/L (3.5-5.1) Chloride Level 106 mmol/L (98-107) Carbon Dioxide Level 31 mmol/L (21-32) Anion Gap 7 (6-14) Blood Urea Nitrogen 12 mg/dL (7-20) Creatinine 0.6 mg/dL (0.6-1.0) Estimated GFR (Cockcroft-Gault) 96.7 BUN/Creatinine Ratio 20 (6-20) Glucose Level 98 mg/dL (70-99) Calcium Level 9.3 mg/dL (8.5-10.1) Magnesium Level 1.8 mg/dL (1.8-2.4) Total Bilirubin 0.3 mg/dL (0.2-1.0) Aspartate Amino Transf (AST/SGOT) 21 U/L (15-37) Alanine Aminotransferase (ALT/SGPT) 21 U/L (14-59) Alkaline Phosphatase 67 U/L (46-116) Troponin I High Sensitivity 7 ng/L (4-50) 8 ng/L (4-50) 7 ng/L (4-50) Total Protein 7.0 g/dL (6.4-8.2) Albumin 3.7 g/dL (3.4-5.0) Albumin/Globulin Ratio 1.1 (1.0-1.7) Thyroid Stimulating Hormone (TSH) 1.361 uIU/mL (0.358-3.74) Urine Collection Type Unknown Urine Color (Auto) Light yellow Urine Turbidity Clear Urine pH (Auto) 7.0 (<5.0-8.0) Urine Specific [place] 1.010 (1.000-1.030) Urine Protein (Auto) Negative mg/dL (Negative) Urine Glucose (Auto)(UA) Negative mg/dL (Negative) Urine Ketones (Auto) Negative mg/dL (Negative) Urine Blood (Auto) Negative (Negative) Urine Nitrite Negative (Negative) Urine Bilirubin (Auto) Negative (Negative) Urine Urobilinogen (Auto) Normal mg/dL (Normal) Urine Leukocyte Esterase (Auto) Negative (Negative) Urine RBC 0 /HPF (0-2) Urine WBC 0 /HPF (0-4) Urine Bacteria 0 /HPF (0-FEW) Urine Opiates Screen Pos (NEG) Urine Methadone Screen Neg (NEG) Urine Barbiturates Neg (NEG) Urine Phencyclidine Screen Neg (NEG) Urine Amphetamine/Methamphetamine Neg (NEG) Urine Benzodiazepines Screen Neg (NEG) Urine Cocaine Screen Neg (NEG) Urine Cannabinoids Screen Neg (NEG) Urine Ethyl Alcohol Neg (NEG) Test 02/02/22 03:40 White Blood Count 4.7 x10^3/uL (4.0-11.0) Red Blood Count 4.42 x10^6/uL (3.50-5.40) Hemoglobin 12.8 g/dL (12.0-15.5) Hematocrit 40.0 % (36.0-47.0) Mean Corpuscular Volume 91 fL (79-100) Mean Corpuscular Hemoglobin 29 pg (25-35) Mean Corpuscular Hemoglobin Concent 32 g/dL (31-37) Red Cell Distribution Width 13.4 % (11.5-14.5) Platelet Count 218 x10^3/uL (140-400) Neutrophils (%) (Auto) 46 % (31-73) Lymphocytes (%) (Auto) 42 % (24-48) Monocytes (%) (Auto) 9 % (0-9) Eosinophils (%) (Auto) 2 % (0-3) Basophils (%) (Auto) 1 % (0-3) Neutrophils # (Auto) 2.2 x10^3/uL (1.8-7.7) Lymphocytes # (Auto) 2.0 x10^3/uL (1.0-4.8) Monocytes # (Auto) 0.4 x10^3/uL (0.0-1.1) Eosinophils # (Auto) 0.1 x10^3/uL (0.0-0.7) Basophils # (Auto) 0.0 x10^3/uL (0.0-0.2) Sodium Level 144 mmol/L (136-145) Potassium Level 4.2 mmol/L (3.5-5.1) Chloride Level 106 mmol/L (98-107) Carbon Dioxide Level 32 mmol/L (21-32) Anion Gap 6 (6-14) Blood Urea Nitrogen 9 mg/dL (7-20) Creatinine 0.6 mg/dL (0.6-1.0) Estimated GFR (Cockcroft-Gault) 96.7 BUN/Creatinine Ratio 15 (6-20) Glucose Level 92 mg/dL (70-99) Calcium Level 9.5 mg/dL (8.5-10.1) Total Bilirubin 0.4 mg/dL (0.2-1.0) Aspartate Amino Transf (AST/SGOT) 83 U/L (15-37) Alanine Aminotransferase (ALT/SGPT) 71 U/L (14-59) Alkaline Phosphatase 96 U/L (46-116) Total Protein 7.0 g/dL (6.4-8.2) Albumin 3.5 g/dL (3.4-5.0) Albumin/Globulin Ratio 1.0 (1.0-1.7) Assessment and Plan Assessmemt and Plan Problems Medical Problems: (1) Chest pain Status: Acute (2) Dizziness Status: Acute (3) Shortness of breath Status: Acute Chest discomfort Suspect anxiety History of the following;AFib, hypertension, hyperlipidemia, anxiety, depression, osteoarthritis, fibromyalgia, loop recorder, cholecystectomy, hysterectomy, ILR and arthroplasty. Plan Discharge See dictation Comment Review of Relevant I have reviewed the following items estephanie (where applicable) has been applied. Medications: Current Medications Medications (Trade) Dose Ordered Sig/Caesar Route PRN Reason Start Time Stop Time Status Last Admin Dose Admin Aspirin (Mavis Aspirin) 325 mg 1X ONCE PO 02/01/22 13:45 02/01/22 13:46 DC 02/01/22 13:58 Nitroglycerin (Nitrostat) 0.4 mg PRN Q5MIN PRN SL CP RATING > 1/10 02/01/22 13:45 02/02/22 13:44 02/01/22 13:59 Morphine Sulfate (Morphine Sulfate) 4 mg PRN Q15MIN PRN IV/SQ PAIN GREATER THAN 3/10 02/01/22 13:45 02/02/22 13:44 02/01/22 14:00 Acetaminophen (Tylenol) 650 mg PRN Q4HRS PRN PO FEVER > 100.3'F 02/01/22 14:00 02/02/22 13:59 02/01/22 18:17 Citalopram Hydrobromide (CeleXA) 20 mg HS PO 02/01/22 21:00 02/01/22 21:06 Losartan Potassium (Cozaar) 25 mg BID PO 02/01/22 21:00 02/02/22 08:29 Metoprolol Succinate (Toprol Xl) 25 mg BID PO 02/01/22 21:00 02/02/22 08:30 Pantoprazole Sodium (Protonix) 40 mg DAILYAC PO 02/02/22 07:30 02/02/22 08:29 Justifications for Admission Other Justification DORENE FRANCISCO III DO Feb 02, 2022 11:08
[2022-02-02] MEDS ORDERED: NITR0.4T24 SL (11:10)
[2022-02-02] MEDS ORDERED: ALPR0.25 PO (11:11)
--- NOTE | 2022-02-02 11:13 | SNU/HH DC ---
DISCHARGE WITH HOME HEALTH DISCHARGE INFORMATION: Final Diagnosis: Problems Medical Problems: (1) Chest pain Status: Acute (2) Dizziness Status: Acute (3) Shortness of breath Status: Acute Condition on Discharge: Stable CODE STATUS: Code Status: Full HOME HEALTH: Face to Face: I certify this patient is under my care and that I, or a nurse practitioner or physician's project construction assistant manager working with me, had a face to face encounter that meets the physician face to face encounter requirements with this patient on []. Medical Complications: Other (Anxiety chest discomfort) Group Home For: Assess Cardiopulm Status RN For Eval/Treatment: Yes Physical Therapy For: Evalulation/Treatment Occupational Therapy For: Evaluation/Treatment Home Health Aide For: Self-care SCOURING TRAIN OPERATOR For: Community Resources Pt Meets Homebound Status: Extreme weakness w/ amb. POST DISCHARGE ORDERS: Activity Instructions for Disc: Activity as tolerated Weight Bearing Status after Di: As tolerated DIET AFTER DISCHARGE: Cardiac CHECKS AFTER DISCHARGE: Checks after discharge: Check blood press - daily TREATMENT/EQUIPMENT ORDERS: Adaptive Equipment Issued: Walker CERTIFICATION STATEMENT: Certification Statement: Certification Statement: Based on the above finding, I certify that this patient is confined to the home and needs intermittent intermediate care, physical therapy and/or speech therapy, or continues to need occupational therapy.~ This patient is under my care, and I have initiated the establishment of the plan of care.~ This patient will be followed by myself or a community physician who will periodically review the plan of care. Home Meds Active Scripts Alprazolam (XANAX) 0.25 Mg Tablet, 0.25 MG PO PRN Q6HRS PRN for ANXIETY / AGITATION for 10 Days, #20 TAB 0 Refills Prov:CASTLE,NIAL K III DO 02/02/22 Nitroglycerin (NITROSTAT) 0.4 Mg Tab.subl, 0.4 MG SL PRN Q5MIN PRN for CHEST PAIN for 30 Days, #25 TAB Prov:CASTLE,NIAL K III DO 02/02/22 Reported Medications Losartan Potassium (LOSARTAN POTASSIUM) 50 Mg Tablet, 25 MG PO BID for HYPERTENSION, TAB 11/18/20 Metoprolol Succinate (METOPROLOL SUCCINATE ( XL )) 25 Mg Tab.er.24h, 25 MG PO BID for FOR HYPERTENSION, #30 TAB 0 Refills 05/28/20 Calcium Carbonate (CALCIUM) 600 Mg Tablet, 600 MG PO HS for , TAB 7/31/20 Citalopram Hydrobromide (CITALOPRAM HBR) 20 Mg Tablet, 20 MG PO HS for depression, TAB 10/18/18 Aspirin (ASPIRIN) 81 Mg Tab.chew, 81 MG PO HS for heart healthy, TAB.CHEW 10/18/18 Multivitamin (MULTIVITAMINS) 1 Each Tablet, 1 EACH PO HS for supplement, TAB 10/18/18 Omeprazole Magnesium (PRILOSEC OTC) 20 Mg Tablet., 20 MG PO HS for heart burn, TAB 10/18/18 DORENE FRANCISCO III DO Feb 02, 2022 11:13
--- NOTE | 2022-02-02 11:30 | DS ---
DATE OF DISCHARGE: 02/02/2022 ADMITTING DIAGNOSIS: Chest pain. DISCHARGE DIAGNOSES: 1. Resolving atypical chest pain, suspect anxiety. 2. History of atrial fibrillation, hypertension, hyperlipidemia, anxiety, depression, osteoarthritis, fibromyalgia, loop recorder, cholecystectomy, hysterectomy, ILR and arthroplasty. CONSULTS: Cardiology. PROCEDURES: None. HOSPITAL COURSE: The patient is a pleasant 76-year-old female who presented with chest pain. We did a full cardiac workup. We consulted Cardiology. Today, I saw and examined her. She is doing great, wants to go home. We plan to discharge. DISPOSITION: Home. ACTIVITY: As tolerated. DIET: Low sodium. DISCHARGE MEDICATIONS: I gave her a prescription for some p.r.n. Xanax and p.r.n. nitro. Aspirin 81 a day, calcium 600 daily, citalopram 20 a day, losartan 25 b.i.d., metoprolol 25 b.i.d., multiple vitamins and Prilosec 20 a day. TOTAL TIME: [address]: Aretha TID: [id number]
[2022-02-02] MEDS: ACETAMINOPHEN 325 MG TABLET. PO PRN (11:33)
--- NOTE | 2022-02-02 11:42 | NUR ---
Discharge Note: TIANNA CAI [address] Discharge instructions and discharge home medications reviewed with Patient and a copy given. All questions have been answered and understanding verbalized. The following instructions and handouts were given: d/c instructions Discontinued lines and drains: Peripheral IV intact. Patient discharged to Home or Self Care with Family Member via Wheelchair
[2022-02-02] MEDS ORDERED: ASPIRIN CHEWABLE 81 MG TABLET. PO SCH (21:00)
== END 2022-02-02 13:14 | disposition home or self-care (01) | DRG 880 ==
LOC: ER 13:20 → 2 NORTH 13:41
PROVIDERS: ADMIT Internal Medicine; ATTEND Internal Medicine
DX: F41.9 Anxiety disorder, unspecified (principal); R07.89 Other chest pain; E11.9 Type 2 diabetes mellitus without complications; E78.00 Pure hypercholesterolemia, unspecified; E78.5 Hyperlipidemia, unspecified; I10 Essential (primary) hypertension; I48.0 Paroxysmal atrial fibrillation; M79.7 Fibromyalgia; Y92.009 Unspecified place in unspecified non-institutional (private) residence as the place of occurrence of the external cause; Y93.01 Activity, walking, marching and hiking; Z82.49 Family history of ischemic heart disease and other diseases of the circulatory system; Z90.710 Acquired absence of both cervix and uterus; F32.A Depression, unspecified; G47.33 Obstructive sleep apnea (adult) (pediatric); K21.9 Gastro-esophageal reflux disease without esophagitis; I49.3 Ventricular premature depolarization; M19.90 Unspecified osteoarthritis, unspecified site; Z90.49 Acquired absence of other specified parts of digestive tract
CPT/HCPCS: 36415; 71045; 80053; 80307; 81001; 83735; 84443; 84484; 85025; 93005; 96374; J2270; 99285-25; G0378

== ENCOUNTER 2022-03-25 14:46 | Inpatient (IN) | payer MEDICARE ==
[~2022-03-25] VITALS: Ht 157.5 cm; Wt 76.0 kg
[~2022-03-25 14:46] MED LIST changes: +NITR0.4T24 SL
[2022-03-25] MEDS ORDERED: IV NORMAL SALINE 1000ML BAG 1,000 ML IV ONE (15:00)
[2022-03-25] MEDS ORDERED: ONDANSETRON PF 4 MG/2 ML VIAL. IVP ONE (15:00)
[2022-03-25 15:08] LABS: BASO % 1 % (0-3); EOS # 0.1 x10^3/uL (0.0-0.7); EOS % 1 % (0-3); HEMATOCRIT 40.8 % (36.0-47.0); LYMPH # 2.6 x10^3/uL (1.0-4.8); LYMPH % 43 % (24-48); MEAN CORPUSCULAR HEMOGLOBIN 31 pg (25-35); MEAN CORPUSCULAR HGB CONC 34 g/dL (31-37); MEAN CORPUSCULAR VOLUME 89 fL (79-100); MONO # 0.4 x10^3/uL (0.0-1.1); MONO % 7 % (0-9); NEUT # 2.9 x10^3/uL (1.8-7.7); NEUT % 48 % (31-73); PLATELET COUNT 229 x10^3/uL (140-400); RED BLOOD COUNT 4.58 x10^6/uL (3.50-5.40); RED CELL DISTRIBUTION WIDTH 13.6 % (11.5-14.5); WHITE BLOOD COUNT 6.1 x10^3/uL (4.0-11.0)
[2022-03-25 15:17] LABS: CALCIUM 9.9 mg/dL (8.5-10.1); CREATININE 0.7 mg/dL (0.6-1.0); GFR 80.9; POTASSIUM 3.9 mmol/L (3.5-5.1); PROTHROMBIN TIME PATIENT 12.9 SEC (11.7-14.0)
[2022-03-25 15:23] LABS: ALBUMIN 3.8 g/dL (3.4-5.0); ALBUMIN/GLOBULIN RATIO 1.1 (1.0-1.7); MAGNESIUM 1.9 mg/dL (1.8-2.4); TOTAL BILIRUBIN 0.5 mg/dL (0.2-1.0); TOTAL PROTEIN 7.2 g/dL (6.4-8.2)
--- NOTE | 2022-03-25 15:30 | PHYS DOC ---
Past Medical History Past Medical History: A-Fib, Anxiety, Arrhythmia, Bronchitis, Depression, Diabetes-Type II, Fibromyalgia, GERD, High Cholesterol, Hypertension, Other Additional Past Medical Histor: Sleep Apnea, PVC, "borderline DM" Past Surgical History: Cholecystectomy, Hysterectomy, Other Additional Past Surgical Histo: L KNEE, loop recorder placed, CARDIAC CATH Smoking Status: Never Smoker Alcohol Use: None Drug Use: None General Adult EDM: Chief Complaint: SYNCOPE HPI: HPI: Patient is a 76-year-old female who presents today via [facility] after a chest pain, near syncopal episode. Patient states that today her and her went to eat at the [employer] and they were driving home from the [employer] when she became very pale and diaphoretic and started having chest pain, her pulled over to a gas station at which time 911 was contacted to transport her to the emergency department. EMS states that their initial blood pressures were in the 120s systolically, her Accu-Chek upon their arrival was 153 and that the patient was very pale and diaphoretic upon their arrival. Patient does have a past medical history of hypertension, anxiety, atrial fib, and multiple emergency department and admission chins for chest pain. Patient states that she sees Dr. Calloway on a regular basis, and reviewing her past medical history it looks like she had a echo recently which showed normal ejection fracture and no concerns for any coronary disease at this time. Review of Systems: Review of Systems: Constitutional: Denies fever or chills. [] Eyes: Denies change in visual acuity. [] HENT: Denies nasal congestion or sore throat. [] Respiratory: Denies cough or shortness of breath. [] Cardiovascular: chest pain, near syncopal GI: Nausea denies abdominal pain, vomiting, bloody stools or diarrhea. [] : Denies dysuria. [] Musculoskeletal: Denies back pain or joint pain. [] Integument: Denies rash. [] Neurologic: Denies headache, focal weakness or sensory changes. [] Endocrine: Denies polyuria or polydipsia. [] Lymphatic: Denies swollen glands. [] Psychiatric: Denies depression or anxiety. [] Heart Score: C/O Chest Pain: Yes HEART Score for Chest Pain: HEART Score for Chest Pain Response (Comments) Value History Moderately Suspicious 1 ECG Normal 0 Age > 65 2 Risk Factors 1 or 2 Risk Factors 1 Troponin < Normal Limit 0 Total 4 Risk Factors: Risk Factors: DM, Current or recent (<one month) smoker, HTN, HLP, family history of CAD, obesity. Risk Scores: Score 0 - 3: 2.5% MACE over next 6 weeks - Discharge Home Score 4 - 6: 20.3% MACE over next 6 weeks - Admit for Clinical Observation Score 7 - 10: 72.7% MACE over next 6 weeks - Early Invasive Strategies Current Medications: Current Medications Medications (Trade) Dose Ordered Sig/Caesar Start Time Stop Time Status Last Admin Dose Admin Ondansetron HCl (Zofran) 4 mg 1X ONCE 03/25/22 15:00 03/25/22 15:01 DC 03/25/22 15:06 4 MG Sodium Chloride 1,000 ml @ 999 mls/hr 1X ONCE 03/25/22 15:00 03/25/22 16:00 03/25/22 15:06 999 MLS/HR Allergies: Allergies: Allergies Coded Allergies Type Severity Reaction Last Updated Verified Iodinated Contrast Media Allergy Intermediate RASH/SWELLING/SKIN TURNS RED. 06/08/21 Yes shellfish derived Allergy Intermediate RED RASH/HIVES ALL OVER BODY 06/08/21 Yes Physical Exam: PE: Constitutional: Well developed, well nourished, moderate distress, non-toxic appearance. [] HENT: Normocephalic, atraumatic, bilateral external ears normal, oropharynx moist, no oral exudates, nose normal. [] Eyes: PERRLA, EOMI, conjunctiva normal, no discharge. [] Neck: Normal range of motion, no tenderness, supple, no stridor. [] Cardiovascular:Heart rate regular rhythm, no murmur [] Lungs & Thorax: Bilateral breath sounds clear to auscultation [] Abdomen: Bowel sounds normal, soft, no tenderness, no masses, no pulsatile masses. [] Skin: pale, Warm, moist, no erythema, no rash. [] Back: No tenderness, no CVA tenderness. [] Extremities: No tenderness, no cyanosis, no clubbing, ROM intact, no edema, peripheral pulses are 2+ Neurologic: Alert and oriented X 3, normal motor function, normal sensory function, no focal deficits noted. [] Psychologic: Affect normal, judgement normal, mood normal. [] Current Patient Data: Labs: Laboratory Tests Test 03/25/22 14:55 White Blood Count 6.1 x10^3/uL (4.0-11.0) Red Blood Count 4.58 x10^6/uL (3.50-5.40) Hemoglobin 14.0 g/dL (12.0-15.5) Hematocrit 40.8 % (36.0-47.0) Mean Corpuscular Volume 89 fL (79-100) Mean Corpuscular Hemoglobin 31 pg (25-35) Mean Corpuscular Hemoglobin Concent 34 g/dL (31-37) Red Cell Distribution Width 13.6 % (11.5-14.5) Platelet Count 229 x10^3/uL (140-400) Neutrophils (%) (Auto) 48 % (31-73) Lymphocytes (%) (Auto) 43 % (24-48) Monocytes (%) (Auto) 7 % (0-9) Eosinophils (%) (Auto) 1 % (0-3) Basophils (%) (Auto) 1 % (0-3) Neutrophils # (Auto) 2.9 x10^3/uL (1.8-7.7) Lymphocytes # (Auto) 2.6 x10^3/uL (1.0-4.8) Monocytes # (Auto) 0.4 x10^3/uL (0.0-1.1) Eosinophils # (Auto) 0.1 x10^3/uL (0.0-0.7) Basophils # (Auto) 0.0 x10^3/uL (0.0-0.2) Laboratory Tests 03/25/22 14:55 Vital Signs: Vital Signs Date Time Temp Pulse Resp B/P (MAP) Pulse Ox O2 Delivery O2 Flow Rate FiO2 03/25/22 18:19 75 21 128/67 (87) 96 Nasal Cannula 2.0 03/25/22 16:55 74 29 164/72 (102) 98 Nasal Cannula 2.0 03/25/22 16:25 66 27 146/64 (91) 98 Nasal Cannula 2.0 03/25/22 15:55 65 129/59 (82) Nasal Cannula 2.0 03/25/22 15:19 62 12 126/58 (80) 96 Room Air 03/25/22 15:05 62 16 111/53 (72) 95 Room Air 03/25/22 15:03 62 14 118/58 (78) 94 Room Air 03/25/22 14:46 97.9 70 22 111/58 (75) 92 Room Air 97.9 Vital Signs Date Time Temp Pulse Resp B/P (MAP) Pulse Ox O2 Delivery O2 Flow Rate FiO2 03/25/22 14:46 97.9 70 22 111/58 (75) 92 Room Air 97.9 EKG: EKG: EKG done at [address] Barboza at 1451 shows sinus rhythm at a rate of 70 with a SC interval of 178 ms with a QTC of 430 ms no STEMI [] Radiology/Procedures: Radiology/Procedures: REASON: near syncope PROCEDURE: CT HEAD WO CONTRAST PQRS Compliance Statement: One or more of the following individualized dose reduction techniques were utilized for this examination: 1. Automated exposure control 2. Adjustment of the mA and/or kV according to patient size 3. Use of iterative reconstruction technique CT head without contrast 03/25/2022 3:48 PM INDICATION: Near syncope COMPARISON: CT head 11/18/2020 TECHNIQUE: Multiple axial CT images of the head were obtained from skull base through the vertex without intravenous contrast. FINDINGS: Head: Ventricles, sulci and basal cisterns are within normal limits. There is no hydrocephalus. Morton-white matter differentiation is normal. There is no acute intracranial hemorrhage. There is no mass, mass effect or midline shift. Posterior fossa is normal in appearance. Visualized portions of the orbits are normal. Paranasal sinuses are well aerated. There is an aerated left petrous apex. Mastoid air cells are well aerated. Scalp and calvaria are normal. IMPRESSION: No acute intracranial hemorrhage. Electronically signed by: Ilda Paiz MD (03/25/2022 3:55 PM) [id number][] REASON: chest pain PROCEDURE: PORTABLE CHEST 1V XR CHEST 1V History: Reason: chest pain / Spl. Instructions: / History: Comparison: February 01, 2022 Findings: Mild patchy left basilar opacity. No pleural effusion. No pneumothorax. Normal heart size. Elevation of the right hemidiaphragm, unchanged. Impression: 1. Mild patchy left basilar opacity, most likely atelectasis. If persistent clinical concern, recommend follow-up. Electronically signed by: Yandel Redmond DO (03/25/2022 3:36 PM) [facility] Course & Med Decision Making: Course & Med Decision Making Pertinent Labs and Imaging studies reviewed. (See chart for details) 1650 I reviewed radiological and laboratory results with patient and the family member at the bedside I did inform her that her symptoms are concerning but I am not finding anything on her laboratory results or her radiology results that would support the symptoms that she had. Patient did have blood in her stool and patient denies any past medical history of hemorrhoids internal hemorrhoids diverticulosis or diverticulitis. Patient states she does have a loop recorder in place for which she has had for a couple of months. I will order a CT scan of her abdomen and pelvis without contrast at this time I will also con salt with Dr. Colvin about bending this patient for cardiology evaluation. [address] Colvin and he is agreeable to admitting this patient for further evaluation and management of her syncopal episode and chest pain. Dragon Disclaimer: Mine Disclaimer: This electronic medical record was generated, in whole or in part, using a voice recognition dictation system. Departure Departure Impression: Primary Impression: Syncope Qualified Codes: R55 - Syncope and collapse Additional Impression: Chest pain Qualified Codes: R07.9 - Chest pain, unspecified Disposition: ADMITTED INPATIENT Admitting Physician: ERNIE Condition: STABLE Referrals: CARMINA GONZÁLES DO (PCP) GENARO TRINIDAD APRN March 25, 2022 15:30
--- NOTE | 2022-03-25 15:38 | RAD ---
XR CHEST 1V History: Reason: chest pain / Spl. Instructions: / History: Comparison: February 01, 2022 Findings: Mild patchy left basilar opacity. No pleural effusion. No pneumothorax. Normal heart size. Elevation of the right hemidiaphragm, unchanged. Impression: 1. Mild patchy left basilar opacity, most likely atelectasis. If persistent clinical concern, recomm end follow-up. Electronically signed by: Yandel Redmond DO (03/25/2022 3:36 PM) [facility]
[2022-03-25 15:48] LABS: BACTERIA,URINE MOD /HPF (0-FEW); HYALINE CASTS, URINE FEW /HPF; RBC,URINE 0 /HPF (0-2)
[2022-03-25 15:51] LABS: FECAL OB PT POSITIVE (NEG)
--- NOTE | 2022-03-25 15:57 | RAD ---
RS Compliance Statement: One or more of the following individualized dose reduction techniques were utilized for this examinat ion: 1. Automated exposure control 2. Adjustment of the mA and/or kV according to patient size 3. Use of iterative reconstruction technique CT head without contrast 03/25/2022 3:48 PM INDICATION: Near syncope COMPARISON: CT head 11/18/2020 TECHNIQUE: Multiple axial CT images of the head were obtained from skull base through the vertex with out intravenous contrast. FINDINGS: Head: Ventricles, sulci and basal cisterns are within normal limits. There is no hydrocephalus. Morton-white matter differentiation is normal. There is no acute intracranial hemorrhage. There is no mass, mass e ffect or midline shift. Posterior fossa is normal in appearance. Visualized portions of the orbits are normal. Paranasal sinuses are well aerated. There is an aerated left petrous apex. Mastoid air cells are well aerated. Scalp and calvaria are normal. IMPRESSION: No acute intracranial hemorrhage. Electronically signed by: Ilda Paiz MD (03/25/2022 3:55 PM) [id number]
[2022-03-25] MEDS ORDERED: ONDANSETRON PF 4 MG/2 ML VIAL. IVP PRN (17:00)
[2022-03-25] MEDS ORDERED: ACETAMINOPHEN 325 MG TABLET. PO PRN (17:00)
--- NOTE | 2022-03-25 17:05 | PDOC1 ---
History and Physical Date of Admission Date of Admission DATE: 03/25/22 TIME: 17:05 Identification/Chief Complaint Chief Complaint Syncope Source Source: Caregiver, Chart review, Patient History of Present Illness History of Present Illness Ms. Cooper is a 76-year-old female with past medical history of depression, prediabetes, HTN, GERD, HLD, SULEMAN with CPAP who comes to the ED via EMS after syncopal episode. relates that they had a "great meal" at [employer] she ate a salad soup and many breadsticks and they were driving home stopped at [employer] where she stated she felt like she had to use the restroom and her noticed she stopped held on the door he came behind her and she fell back into him and he gently sat her down on the ground and called 911 she was noted to be pale and diaphoretic and vomited upon awakening. She was found to be tachycardic in the 120s according to EMS with a glucose of 153. She recalls getting up to get out of the car in having some abdominal pain and nausea and the next thing she recalls is waking up in an ambulance. She does note a little bit of chest discomfort at the time but it is resolved by the time of evaluation in ED though she still does have some faint nausea little bit of abdominal cramping On further review notes no recent sick contacts no recent travel. Vaccines are up-to-date including COVID-19. notes he felt like he almost had to do CPR on his . The only recent changes that she has not been wearing her CPAP because she is felt discomfort with the facemask pressing on the bridge of her nose and so its been quite sometime since she is worn it. She notes she had a referral for a [facility] outpatient evaluation for an Inspire sleep apnea device insertion but she is hesitant to follow through and instead is asked if she could have a nasal pillow and chinstrap for her CPAP. Home meds are bupropion 100mg twice daily Pravachol 40 mg nightly losartan 50 mg daily omeprazole 20 mg daily metoprolol succinate 50 mg daily split into 25 mg twice daily. WBC 6.1, Hb 14, platelets 229, INR 1, PTT 26, NA 143, K3.9 Past Medical History Cardiovascular: AFIB, HTN, Hyperlipidemia Pulmonary: Other CENTRAL NERVOUS SYSTEM: Other GI: No pertinent hx Heme/Onc: No pertinent hx Hepatobiliary: No pertinent hx Psych: Anxiety, Depression Musculoskeletal: Osteoarthritis Rheumatologic: Fibromyalgia Infectious disease: No pertinent hx Renal/: No pertinent hx Endocrine: Diabetes Past Surgical History Past Surgical History: Arthroscopy, Cholecystectomy, Hysterectomy Family History Family History: Hypertension Social History Smoke: No ALCOHOL: none Drugs: None Current Medications Current Medications Current Medications Sodium Chloride 1,000 ml @ 999 mls/hr 1X ONCE IV Last administered on 03/25/22at 15:06; Start 03/25/22 at 15:00; Stop 03/25/22 at 16:00; Status DC Ondansetron HCl (Zofran) 4 mg 1X ONCE IVP Last administered on 03/25/22at 15:06; Start 03/25/22 at 15:00; Stop 03/25/22 at 15:01; Status DC Active Scripts Active Xanax (Alprazolam) 0.25 Mg Tablet 0.25 Mg PO PRN Q6HRS PRN 10 Days Nitrostat (Nitroglycerin) 0.4 Mg Tab.subl 0.4 Mg SL PRN Q5MIN PRN 30 Days Reported Losartan Potassium 50 Mg Tablet 25 Mg PO BID Metoprolol Succinate ( Xl ) (Metoprolol Succinate) 25 Mg Tab.er.24h 25 Mg PO BID Calcium (Calcium Carbonate) 600 Mg Tablet 600 Mg PO HS Citalopram Hbr (Citalopram Hydrobromide) 20 Mg Tablet 20 Mg PO HS Aspirin 81 Mg Tab.chew 81 Mg PO HS Multivitamins (Multivitamin) 1 Each Tablet 1 Each PO HS Prilosec Otc (Omeprazole Magnesium) 20 Mg Tablet.dr 20 Mg PO HS Allergies Allergies: Coded Allergies: Iodinated Contrast Media (Verified Allergy, Intermediate, RASH/SWELLING/SKIN TURNS RED., 03/25/22) PATIENT NEEDS PRE-MEDICATED PRIOR TO ANY SCANS REQUIRING IV CONTRAST. shellfish derived (Verified Allergy, Intermediate, RED RASH/HIVES ALL OVER BODY, 03/25/22) ROS General: YES: Fatigue, Malaise, Appetite; No: Chills, Night Sweats, Other PSYCHOLOGICAL ROS: YES: Anxiety; No: Behavioral Disorder, Concentration difficultie, Decreased libido, Depression, Disorientation, Hallucinations, Hostility, Irritablity, Memory difficulties, Mood Swings, Obsessive thoughts, Physical abuse, Sexual abuse, Sleep disturbances, Suicidal ideation, Other Eyes: No Blurry vision, No Decreased vision, No Double vision, No Dry eyes, No Excessive tearing, No Eye Pain, No Itchy Eyes, No Loss of vision, No Photophobia, No Scotomata, No Uses contacts, No Uses glasses, No Other HEENT: No: Heacaches, Visual Changes, Hearing change, Nasal congestion, Nasal discharge, Oral lesions, Sinus pain, Sore Throat, Epistaxis, Sneezing, Snoring, Tinnitus, Vertigo, Vocal changes, Other ALLERGY AND IMMUNOLOGY: No: Hives, Insect Bite Sensitivity, Itchy/Watery Eyes, Nasal Congestion, Post Nasal Drip, Seasonal Allergies, Other Hematological and Lymphatic: No: Bleeding Problems, Blood Clots, Blood Transfusions, Brusing, Night Sweats, Pallor, Swollen Lymph Nodes, Other ENDOCRINE: No: Breast Changes, Galactorrhea, Hair Pattern Changes, Hot Flashes, Malaise/lethargy, Mood Swings, Palpitations, Polydipsia/polyuria, Skin Changes, Temperature Intolerance, Unexpected Weight Changes, Other Breast: No New/Changing Breast Lumps, No Nipple changes, No Nipple discharge, No Other Respiratory: No: Cough, Hemoptysis, Orthopnea, Pleuritic Pain, Shortness of breath, SOB with excertion, Sputum Changes, Stridor, Tachypnea, Wheezing, Other Cardiovascular: No Chest Pain, No Palpitations, No Orthopnea, No Paroxysmal Noc. Dyspnea, No Edema, No Lt Headedness, No Other Gastrointestinal: Yes Nausea; No Vomiting, No Abdominal Pain, No Diarrhea, No Constipation, No Melena, No Hematochezia, No Other Genitourinary: No Dysuria, No Frequency, No Incontinence, No Hematuria, No Retention, No Discharge, No Urgency, No Pain, No Flank Pain, No Other, No , No , No , No , No , No , No Musculoskeletal: No Gait Disturbance, No Joint Pain, No Joint Stiffness, No Joint Swelling, No Muscle Pain, No Muscular Weakness, No Pain In:, No Swelling In:, No Other Neurological: No Behavorial Changes, No Bowel/Bladder ControlChng, No Confusion, No Dizziness, No Gait Disturbance, No Headaches, No Impaired Coord/balance, No Memory Loss, No Numbness/Tingling, No Seizures, No Speech Problems, No Tremors, No Visual Changes, No Weakness, No Other Skin: No Dry Skin, No Eczema, No Hair Changes, No Lumps, No Mole Changes, No Mottling, No Nail Changes, No Pruritus, No Rash, No Skin Lesion Changes, No Other, No Acne Physical Exam General: Alert, Oriented X3, Cooperative, mild distress HEENT: Atraumatic, PERRLA, EOMI, Mucous membr. moist/pink Lungs: Clear to auscultation, Normal air movement Heart: S1S2, RRR, no thrills, no rubs, no gallops, no murmurs Abdomen: Normal bowel sounds, Soft, No tenderness, No hepatosplenomegaly, No masses Rectal Exam: not examined Extremities: No clubbing, No cyanosis, No edema, Normal pulses, No tenderness/swelling Skin: No rashes, No breakdown, No significant lesion Neuro: Normal gait, Normal speech, Strength at 5/5 X4 ext, Normal tone, Sensation intact, Cranial nerves 3-12 NL, Reflexes 2+ Psych/Mental Status: Mental status NL, Mood NL Vitals Vitals Vital Signs Date Time Temp Pulse Resp B/P (MAP) Pulse Ox O2 Delivery O2 Flow Rate FiO2 03/25/22 14:46 97.9 70 22 111/58 (75) 92 Room Air 97.9 Labs Labs Laboratory Tests Test 03/25/22 14:55 03/25/22 15:30 White Blood Count 6.1 x10^3/uL (4.0-11.0) Red Blood Count 4.58 x10^6/uL (3.50-5.40) Hemoglobin 14.0 g/dL (12.0-15.5) Hematocrit 40.8 % (36.0-47.0) Mean Corpuscular Volume 89 fL (79-100) Mean Corpuscular Hemoglobin 31 pg (25-35) Mean Corpuscular Hemoglobin Concent 34 g/dL (31-37) Red Cell Distribution Width 13.6 % (11.5-14.5) Platelet Count 229 x10^3/uL (140-400) Neutrophils (%) (Auto) 48 % (31-73) Lymphocytes (%) (Auto) 43 % (24-48) Monocytes (%) (Auto) 7 % (0-9) Eosinophils (%) (Auto) 1 % (0-3) Basophils (%) (Auto) 1 % (0-3) Neutrophils # (Auto) 2.9 x10^3/uL (1.8-7.7) Lymphocytes # (Auto) 2.6 x10^3/uL (1.0-4.8) Monocytes # (Auto) 0.4 x10^3/uL (0.0-1.1) Eosinophils # (Auto) 0.1 x10^3/uL (0.0-0.7) Basophils # (Auto) 0.0 x10^3/uL (0.0-0.2) Prothrombin Time 12.9 SEC (11.7-14.0) Prothromb Time International Ratio 1.0 (0.8-1.1) Activated Partial Thromboplast Time 26 SEC (24-38) Sodium Level 143 mmol/L (136-145) Potassium Level 3.9 mmol/L (3.5-5.1) Chloride Level 106 mmol/L (98-107) Carbon Dioxide Level 29 mmol/L (21-32) Anion Gap 8 (6-14) Blood Urea Nitrogen 16 mg/dL (7-20) Creatinine 0.7 mg/dL (0.6-1.0) Estimated GFR (Cockcroft-Gault) 80.9 BUN/Creatinine Ratio 23 (6-20) Glucose Level 198 mg/dL (70-99) Calcium Level 9.9 mg/dL (8.5-10.1) Magnesium Level 1.9 mg/dL (1.8-2.4) Total Bilirubin 0.5 mg/dL (0.2-1.0) Aspartate Amino Transf (AST/SGOT) 27 U/L (15-37) Alanine Aminotransferase (ALT/SGPT) 27 U/L (14-59) Alkaline Phosphatase 78 U/L (46-116) Troponin I High Sensitivity 5 ng/L (4-50) QI-Phy-I-Type Natriuretic Peptide 129 pg/mL (0-449) Total Protein 7.2 g/dL (6.4-8.2) Albumin 3.8 g/dL (3.4-5.0) Albumin/Globulin Ratio 1.1 (1.0-1.7) Lipase 69 U/L (73-393) Urine Collection Type Unknown Urine Color (Auto) Yellow Urine Turbidity Hazy Urine pH (Auto) 6.5 (<5.0-8.0) Urine Specific [place] 1.024 (1.000-1.030) Urine Protein (Auto) 30 mg/dL (Negative) Urine Glucose (Auto)(UA) Negative mg/dL (Negative) Urine Ketones (Auto) Negative mg/dL (Negative) Urine Blood (Auto) Negative (Negative) Urine Nitrite (Auto) Negative (Negative) Urine Bilirubin (Auto) Negative (Negative) Urine Urobilinogen (Auto) Normal mg/dL (Normal) Urine Leukocyte Esterase (Auto) Negative (Negative) Urine RBC 0 /HPF (0-2) Urine WBC 1-4 /HPF (0-4) Urine Bacteria Mod /HPF (0-FEW) Urine Hyaline Casts Few /HPF Urine Mucus Mod /LPF Stool Occult Blood Positive (NEG) Laboratory Tests Test 03/25/22 14:55 03/25/22 15:30 White Blood Count 6.1 x10^3/uL (4.0-11.0) Red Blood Count 4.58 x10^6/uL (3.50-5.40) Hemoglobin 14.0 g/dL (12.0-15.5) Hematocrit 40.8 % (36.0-47.0) Mean Corpuscular Volume 89 fL (79-100) Mean Corpuscular Hemoglobin 31 pg (25-35) Mean Corpuscular Hemoglobin Concent 34 g/dL (31-37) Red Cell Distribution Width 13.6 % (11.5-14.5) Platelet Count 229 x10^3/uL (140-400) Neutrophils (%) (Auto) 48 % (31-73) Lymphocytes (%) (Auto) 43 % (24-48) Monocytes (%) (Auto) 7 % (0-9) Eosinophils (%) (Auto) 1 % (0-3) Basophils (%) (Auto) 1 % (0-3) Neutrophils # (Auto) 2.9 x10^3/uL (1.8-7.7) Lymphocytes # (Auto) 2.6 x10^3/uL (1.0-4.8) Monocytes # (Auto) 0.4 x10^3/uL (0.0-1.1) Eosinophils # (Auto) 0.1 x10^3/uL (0.0-0.7) Basophils # (Auto) 0.0 x10^3/uL (0.0-0.2) Prothrombin Time 12.9 SEC (11.7-14.0) Prothromb Time International Ratio 1.0 (0.8-1.1) Activated Partial Thromboplast Time 26 SEC (24-38) Sodium Level 143 mmol/L (136-145) Potassium Level 3.9 mmol/L (3.5-5.1) Chloride Level 106 mmol/L (98-107) Carbon Dioxide Level 29 mmol/L (21-32) Anion Gap 8 (6-14) Blood Urea Nitrogen 16 mg/dL (7-20) Creatinine 0.7 mg/dL (0.6-1.0) Estimated GFR (Cockcroft-Gault) 80.9 BUN/Creatinine Ratio 23 (6-20) Glucose Level 198 mg/dL (70-99) Calcium Level 9.9 mg/dL (8.5-10.1) Magnesium Level 1.9 mg/dL (1.8-2.4) Total Bilirubin 0.5 mg/dL (0.2-1.0) Aspartate Amino Transf (AST/SGOT) 27 U/L (15-37) Alanine Aminotransferase (ALT/SGPT) 27 U/L (14-59) Alkaline Phosphatase 78 U/L (46-116) Troponin I High Sensitivity 5 ng/L (4-50) YQ-Arh-Q-Type Natriuretic Peptide 129 pg/mL (0-449) Total Protein 7.2 g/dL (6.4-8.2) Albumin 3.8 g/dL (3.4-5.0) Albumin/Globulin Ratio 1.1 (1.0-1.7) Lipase 69 U/L (73-393) Urine Collection Type Unknown Urine Color (Auto) Yellow Urine Turbidity Hazy Urine pH (Auto) 6.5 (<5.0-8.0) Urine Specific [place] 1.024 (1.000-1.030) Urine Protein (Auto) 30 mg/dL (Negative) Urine Glucose (Auto)(UA) Negative mg/dL (Negative) Urine Ketones (Auto) Negative mg/dL (Negative) Urine Blood (Auto) Negative (Negative) Urine Nitrite (Auto) Negative (Negative) Urine Bilirubin (Auto) Negative (Negative) Urine Urobilinogen (Auto) Normal mg/dL (Normal) Urine Leukocyte Esterase (Auto) Negative (Negative) Urine RBC 0 /HPF (0-2) Urine WBC 1-4 /HPF (0-4) Urine Bacteria Mod /HPF (0-FEW) Urine Hyaline Casts Few /HPF Urine Mucus Mod /LPF Stool Occult Blood Positive (NEG) Images Images CT HEAD WO CONTRAST PQRS Compliance Statement: One or more of the following individualized dose reduction techniques were utilized for this examination: 1. Automated exposure control 2. Adjustment of the mA and/or kV according to patient size 3. Use of iterative reconstruction technique CT head without contrast 03/25/2022 3:48 PM INDICATION: Near syncope COMPARISON: CT head 11/18/2020 TECHNIQUE: Multiple axial CT images of the head were obtained from skull base through the vertex without intravenous contrast. FINDINGS: Head: Ventricles, sulci and basal cisterns are within normal limits. There is no hydrocephalus. Morton-white matter differentiation is normal. There is no acute intracranial hemorrhage. There is no mass, mass effect or midline shift. Posterior fossa is normal in appearance. Visualized portions of the orbits are normal. Paranasal sinuses are well aerated. There is an aerated left petrous apex. Mastoid air cells are well aerated. Scalp and calvaria are normal. IMPRESSION: No acute intracranial hemorrhage. VTE Prophylaxis Ordered VTE Prophylaxis Devices: No VTE Pharmacological Prophylaxi: Yes Assessment/Plan Assessment/Plan Syncope -with loss of consciousness did not strike her head. No seizure-like activity. Ordered echo -LVH on EKG, concern for structrual heart disease as etiology, but most likely this is a vasovagal event HTN - cont home meds Constipation - add bowel regimen HLD - cont statin GERD - PPI Depression - cont wellbutrin Prediabetes - monitor glucose SULEMAN with CPAP compliance difficulties -she is skeptical about the inspire device insertion and will find out who her CPAP clinical ob is so they can be contacted to assess for nasal pillows and chinstrap. FEN - cardiac diet PPX - lovenox FULL CODE Dispo - inpatient Justifications for Admission Other Justification YEIMY DOUGLAS MD March 25, 2022 17:05
--- NOTE | 2022-03-25 18:06 | RAD ---
CT ABDOMEN+PELVIS WO History: Blood in stool Comparison: None. Technique: Noncontrast CT of the abdomen and pelvis. Findings: Linear atelectasis in the lung base. Right middle lobe calcified granuloma. Elevation of the right di aphragm. Calcified mediastinal and hilar lymph nodes. Left anterior descending coronary artery calcif ication. The liver is unremarkable. Status post cholecystectomy. No biliary ductal dilatation. The pancreas is unremarkable. There are punctate calcified granulomas in the spleen. The adrenal glands and kidneys are unremarkable. The bladder is decompressed without focal abnormality. Status post hysterectomy. No pelvic masses. Well-distended stomach. No small bowel obstruction. The appendix is normal. No significant diverticul ar disease. Mild wall thickening at the rectum with stranding of the perirectal fat. No intra-abdominal free air or free fluid. Aortoiliac atherosclerotic calcification without aneurysm. No adenopathy. Tiny fat-containing umbilical hernia and fat-containing left inguinal hernia. No acut e osseous abnormalities. Right iliac bone island. Partial sacralization of the right transverse proce ss of L5. Impression: 1. Mild wall thickening of the rectum with adjacent mild fat stranding in the perirectal fat. Correl ate for proctocolitis. ------ Exposure: One or more of the following individualized dose reduction techniques were utilized for thi s examination: 1. Automated exposure control 2. Adjustment of the mA and/or kV according to patient size 3. Use of iterative reconstruction technique. Electronically signed by: Dilshad Heath MD (03/25/2022 6:04 PM) [id number]
[2022-03-25 19:00] VITALS: BP 136/59
[2022-03-25] MEDS ORDERED: DEXTROSE 50% 25 GM / 50ML DISP.SYRIN. IV PRN (19:15)
[2022-03-25] MEDS ORDERED: MULTIVITAMIN with MINERAL TABLET. PO SCH (21:00)
[2022-03-25] MEDS ORDERED: PSYLLIUM HUSK (SUGAR FREE) 1 PKT PACKET PO SCH (21:00)
[2022-03-25] MEDS ORDERED: CALCIUM CARBONATE 500 MG TABLET PO SCH (21:00)
[2022-03-25] MEDS ORDERED: INSULIN LISPRO 300 UNITS/3 ML VIAL. SQ SCH (21:00)
[2022-03-25] MEDS ORDERED: METOPROLOL SUCC 24HR ER 25 MG TAB.ER.24H. PO SCH (21:00)
[2022-03-25] MEDS ORDERED: PANTOPRAZOLE 40 MG TABLET.DR. PO SCH (21:00)
[2022-03-25] MEDS ORDERED: ASPIRIN CHEWABLE 81 MG TABLET. PO SCH (21:00)
[2022-03-25] MEDS ORDERED: LISI-130 PO (21:11)
[2022-03-25 22:48] VITALS: BP 120/62
[2022-03-26] VITALS (7 sets, daily range): BP systolic 104–155; BP diastolic 56–70
[2022-03-26 04:55] LABS: ALBUMIN 3.1 g/dL (3.4-5.0); CALCIUM 9.2 mg/dL (8.5-10.1); CREATININE 0.7 mg/dL (0.6-1.0); GFR 80.9; PHOSPHORUS 4.1 mg/dL (2.6-4.7); POTASSIUM 4.4 mmol/L (3.5-5.1); TOTAL BILIRUBIN 0.5 mg/dL (0.2-1.0); TOTAL PROTEIN 6.1 g/dL (6.4-8.2)
--- NOTE | 2022-03-26 07:16 | NUR ---
03/25 2000 assessment done however time incorrect.
--- NOTE | 2022-03-26 08:03 | PDOC ---
[employer] PROGRESS NOTE Date of Service DOS: DATE: 03/26/22 TIME: 08:01 Chief Complaint Chief Complaint Syncope -with loss of consciousness did not strike her head. No seizure-like activity. Ordered echo -LVH on EKG, concern for structrual heart disease as etiology, but most likely this is a vasovagal event HTN - cont home meds, as she approaches 78 may need to cut back on her metoprolol she has had several low blood pressures. Constipation - add bowel regimen HLD - cont statin GERD - PPI Depression - cont wellbutrin Prediabetes - monitor glucose SULEMAN with CPAP compliance difficulties -she is skeptical about the inspire device insertion and will find out who her CPAP regulatory associate is so they can be contacted to assess for nasal pillows and chinstrap. FEN - cardiac diet PPX - lovenox FULL CODE Dispo - inpatient History of Present Illness History of Present Illness Ms. Cooper is a 76-year-old female with past medical history of depression, prediabetes, HTN, GERD, HLD, SULEMAN with CPAP who comes to the ED via EMS after syncopal episode. relates that they had a "great meal" at [employer] she ate a salad soup and many breadsticks and they were driving home stopped at [employer] where she stated she felt like she had to use the restroom and her noticed she stopped held on the door he came behind her and she fell back into him and he gently sat her down on the ground and called 911 she was noted to be pale and diaphoretic and vomited upon awakening. She was found to be tachycardic in the 120s according to EMS with a glucose of 153. She recalls getting up to get out of the car in having some abdominal pain and nausea and the next thing she recalls is waking up in an ambulance. She does note a little bit of chest discomfort at the time but it is resolved by the time of evaluation in ED though she still does have some faint nausea little bit of abdominal cramping On further review notes no recent sick contacts no recent travel. Vaccines are up-to-date including COVID-19. notes he felt like he almost had to do CPR on his . The only recent changes that she has not been wearing her CPAP because she is felt discomfort with the facemask pressing on the bridge of her nose and so its been quite sometime since she is worn it. She notes she had a referral for a [facility] outpatient evaluation for an Inspire sleep apnea device insertion but she is hesitant to follow through and instead is asked if she could have a nasal pillow and chinstrap for her CPAP. Home meds are bupropion 100mg twice daily Pravachol 40 mg nightly losartan 50 mg daily omeprazole 20 mg daily metoprolol succinate 50 mg daily split into 25 mg twice daily. WBC 6.1, Hb 14, platelets 229, INR 1, PTT 26, NA 143, K3.9 03/26: BP was low only given half dose of her Toprol-XL and still with low BP. N ow that she is more alert she complained of left knee pain upon standing notes she did have her knee buckle and hit it on the door of the car as he caught her when she fell. She notes that her home blood pressure cuff has been reading high frequently and there is discordance between it and outpatient readings elsewhere. Vitals/I&O Vitals/I&O: Vital Signs Date Time Temp Pulse Resp B/P (MAP) Pulse Ox O2 Delivery O2 Flow Rate FiO2 03/26/22 07:06 98.1 70 18 116/61 (79) 96 Room Air 98.1 03/26/22 03:01 1.0 I & O 03/25/22 03/25/22 03/26/22 15:00 23:00 07:00 Intake Total 1100 ml 0 ml Output Total 0 ml Balance 1100 ml 0 ml Physical Exam General: Alert, Oriented X3, Cooperative, mild distress Lungs: Clear Abdomen: Normal bowel sounds, Soft, No tenderness, No hepatosplenomegaly, No masses Extremities: No clubbing, No cyanosis, No edema, Normal pulses, No tenderness/swelling Skin: No rashes, No breakdown, No significant lesion Labs Labs: Laboratory Tests Test 03/25/22 14:55 03/25/22 15:30 03/25/22 21:18 03/26/22 03:45 White Blood Count 6.1 x10^3/uL (4.0-11.0) Red Blood Count 4.58 x10^6/uL (3.50-5.40) Hemoglobin 14.0 g/dL (12.0-15.5) Hematocrit 40.8 % (36.0-47.0) Mean Corpuscular Volume 89 fL (79-100) Mean Corpuscular Hemoglobin 31 pg (25-35) Mean Corpuscular Hemoglobin Concent 34 g/dL (31-37) Red Cell Distribution Width 13.6 % (11.5-14.5) Platelet Count 229 x10^3/uL (140-400) Neutrophils (%) (Auto) 48 % (31-73) Lymphocytes (%) (Auto) 43 % (24-48) Monocytes (%) (Auto) 7 % (0-9) Eosinophils (%) (Auto) 1 % (0-3) Basophils (%) (Auto) 1 % (0-3) Neutrophils # (Auto) 2.9 x10^3/uL (1.8-7.7) Lymphocytes # (Auto) 2.6 x10^3/uL (1.0-4.8) Monocytes # (Auto) 0.4 x10^3/uL (0.0-1.1) Eosinophils # (Auto) 0.1 x10^3/uL (0.0-0.7) Basophils # (Auto) 0.0 x10^3/uL (0.0-0.2) Prothrombin Time 12.9 SEC (11.7-14.0) Prothromb Time International Ratio 1.0 (0.8-1.1) Activated Partial Thromboplast Time 26 SEC (24-38) Sodium Level 143 mmol/L (136-145) 146 mmol/L (136-145) Potassium Level 3.9 mmol/L (3.5-5.1) 4.4 mmol/L (3.5-5.1) Chloride Level 106 mmol/L (98-107) 110 mmol/L (98-107) Carbon Dioxide Level 29 mmol/L (21-32) 30 mmol/L (21-32) Anion Gap 8 (6-14) 6 (6-14) Blood Urea Nitrogen 16 mg/dL (7-20) 13 mg/dL (7-20) Creatinine 0.7 mg/dL (0.6-1.0) 0.7 mg/dL (0.6-1.0) Estimated GFR (Cockcroft-Gault) 80.9 80.9 BUN/Creatinine Ratio 23 (6-20) 19 (6-20) Glucose Level 198 mg/dL (70-99) 93 mg/dL (70-99) Calcium Level 9.9 mg/dL (8.5-10.1) 9.2 mg/dL (8.5-10.1) Magnesium Level 1.9 mg/dL (1.8-2.4) Total Bilirubin 0.5 mg/dL (0.2-1.0) 0.5 mg/dL (0.2-1.0) Aspartate Amino Transf (AST/SGOT) 27 U/L (15-37) 25 U/L (15-37) Alanine Aminotransferase (ALT/SGPT) 27 U/L (14-59) 25 U/L (14-59) Alkaline Phosphatase 78 U/L (46-116) 72 U/L (46-116) Troponin I High Sensitivity 5 ng/L (4-50) 7 ng/L (4-50) NS-Lfn-V-Type Natriuretic Peptide 129 pg/mL (0-449) Total Protein 7.2 g/dL (6.4-8.2) 6.1 g/dL (6.4-8.2) Albumin 3.8 g/dL (3.4-5.0) 3.1 g/dL (3.4-5.0) Albumin/Globulin Ratio 1.1 (1.0-1.7) 1.0 (1.0-1.7) Lipase 69 U/L (73-393) Urine Collection Type Unknown Urine Color (Auto) Yellow Urine Turbidity Hazy Urine pH (Auto) 6.5 (<5.0-8.0) Urine Specific [place] 1.024 (1.000-1.030) Urine Protein (Auto) 30 mg/dL (Negative) Urine Glucose (Auto)(UA) Negative mg/dL (Negative) Urine Ketones (Auto) Negative mg/dL (Negative) Urine Blood (Auto) Negative (Negative) Urine Nitrite (Auto) Negative (Negative) Urine Bilirubin (Auto) Negative (Negative) Urine Urobilinogen (Auto) Normal mg/dL (Normal) Urine Leukocyte Esterase (Auto) Negative (Negative) Urine RBC 0 /HPF (0-2) Urine WBC 1-4 /HPF (0-4) Urine Bacteria Mod /HPF (0-FEW) Urine Hyaline Casts Few /HPF Urine Mucus Mod /LPF Stool Occult Blood Positive (NEG) Glucose (Fingerstick) 90 mg/dL (70-99) Phosphorus Level 4.1 mg/dL (2.6-4.7) Test 03/26/22 07:06 Glucose (Fingerstick) 101 mg/dL (70-99) Assessment and Plan Assessmemt and Plan Problems Medical Problems: (1) Chest pain Status: Acute (2) Syncope Status: Acute Comment Review of Relevant I have reviewed the following items estephanie (where applicable) has been applied. Medications: Current Medications Medications (Trade) Dose Ordered Sig/Caesar Route PRN Reason Start Time Stop Time Status Last Admin Dose Admin Sodium Chloride 1,000 ml @ 999 mls/hr 1X ONCE IV 03/25/22 15:00 03/25/22 16:00 DC 03/25/22 15:06 Ondansetron HCl (Zofran) 4 mg 1X ONCE IVP 03/25/22 15:00 03/25/22 15:01 DC 03/25/22 15:06 Aspirin (Aspirin Chewable) 81 mg HS PO 03/25/22 21:00 03/25/22 21:06 Metoprolol Succinate (Toprol Xl) 25 mg BID PO 03/25/22 21:00 03/25/22 21:06 Calcium Carbonate/ Glycine (Oscal) 500 mg HS PO 03/25/22 21:00 03/25/22 21:06 Multivitamins (Thera M Plus) 1 tab HS PO 03/25/22 21:00 03/25/22 21:06 Pantoprazole Sodium (Protonix) 40 mg HS PO 03/25/22 21:00 03/25/22 21:06 Justifications for Admission Other Justification YEIMY DOUGLAS MD March 26, 2022 08:03
[2022-03-26] MEDS ORDERED: POLYETHYLENE GLYCOL 3350 17 GM PACKET. PO SCH (09:00)
--- NOTE | 2022-03-26 10:30 | PDOC2 ---
CONSULT Date of Consult Date of Consult DATE: 03/26/22 TIME: 10:22 Reason for Consult Reason for Consult: Syncope, chest pain Referring Physician Referring Physician: Dr. Loco Identification/Chief Complaint Chief Complaint Syncope, chest pain Source Source: Chart review, Patient History of Present Illness Reason for Visit: 76-year-old female apparently ate at [employer] with her and when they were driving home, she felt sick to her stomach, had chest discomfort and nausea. Her pulled the car into [employer] and when she was getting out of the car to use the restroom, she became lightheaded, diaphoretic, passed out and fell on her knee. She apparently vomited after waking up. She denied any prior episodes of syncope or near syncope. She has history of intermittent palpitations and has loop recorder implanted in the past. She denied any palpitations preceding this event. She is currently chest pain-free. She denied any orthopnea/PND. She did complain of knee pain from falling on it. Past Medical History Cardiovascular: HTN, Hyperlipidemia Pulmonary: Other CENTRAL NERVOUS SYSTEM: Other GI: No pertinent hx Heme/Onc: No pertinent hx Hepatobiliary: No pertinent hx Psych: Anxiety, Depression Musculoskeletal: Osteoarthritis Rheumatologic: Fibromyalgia Infectious disease: No pertinent hx Renal/: No pertinent hx Endocrine: Diabetes Past Surgical History Past Surgical History: Arthroscopy, Cholecystectomy, Hysterectomy, Other (Loop recorder implantation) Family History Family History: Hypertension Social History No ALCOHOL: none Drugs: None Lives: with Family Current Problem List Problem List Problems Medical Problems: (1) Chest pain Status: Acute (2) Syncope Status: Acute Current Medications Current Medications Current Medications Sodium Chloride 1,000 ml @ 999 mls/hr 1X ONCE IV Last administered on 03/25/22at 15:06; Start 03/25/22 at 15:00; Stop 03/25/22 at 16:00; Status DC Ondansetron HCl (Zofran) 4 mg 1X ONCE IVP Last administered on 03/25/22at 15:06; Start 03/25/22 at 15:00; Stop 03/25/22 at 15:01; Status DC Psyllium Hydrophilic Mucilloid (Metamucil Fiber Packet) 1 pkt QHS PO ; Start 03/25/22 at 21:00 Polyethylene Glycol (miraLAX PACKET) 17 gm DAILY PO ; Start 03/26/22 at 09:00 Acetaminophen (Tylenol) 650 mg PRN Q6HRS PRN PO MILD PAIN / TEMP > 100.3'F; Start 03/25/22 at 17:00 Ondansetron HCl (Zofran) 4 mg PRN Q4HRS PRN IVP NAUSEA/VOMITING; Start 03/25/22 at 17:00 Aspirin (Aspirin Chewable) 81 mg HS PO Last administered on 03/25/22at 21:06; Start 03/25/22 at 21:00 Metoprolol Succinate (Toprol Xl) 25 mg BID PO Last administered on 03/25/22at 21:06; Start 03/25/22 at 21:00; Stop 03/26/22 at 08:01; Status DC Calcium Carbonate/ Glycine (Oscal) 500 mg HS PO Last administered on 03/25/22at 21:06; Start 03/25/22 at 21:00 Multivitamins (Thera M Plus) 1 tab HS PO Last administered on 03/25/22at 21:06; Start 03/25/22 at 21:00 Pantoprazole Sodium (Protonix) 40 mg HS PO Last administered on 03/25/22at 21:06; Start 03/25/22 at 21:00 Insulin Human Lispro (HumaLOG) 0-7 UNITS TIDACHC SQ ; Start 03/25/22 at 21:00; Stop 03/26/22 at 08:00; Status DC Dextrose (Dextrose 50%-Water Syringe) 12.5 gm PRN Q15MIN PRN IV SEE COMMENTS; Start 03/25/22 at 19:15 Metoprolol Succinate (Toprol Xl) 25 mg QPM PO ; Start 03/26/22 at 18:00 Active Scripts Active Xanax (Alprazolam) 0.25 Mg Tablet 0.25 Mg PO PRN Q6HRS PRN 10 Days Nitrostat (Nitroglycerin) 0.4 Mg Tab.subl 0.4 Mg SL PRN Q5MIN PRN 30 Days Reported Lisinopril 40 Mg Tablet 0.5 Tab PO BID Losartan Potassium 50 Mg Tablet 25 Mg PO BID Metoprolol Succinate ( Xl ) (Metoprolol Succinate) 25 Mg Tab.er.24h 25 Mg PO BID Calcium (Calcium Carbonate) 600 Mg Tablet 600 Mg PO HS Citalopram Hbr (Citalopram Hydrobromide) 20 Mg Tablet 20 Mg PO HS Aspirin 81 Mg Tab.chew 81 Mg PO HS Multivitamins (Multivitamin) 1 Each Tablet 1 Each PO HS Prilosec Otc (Omeprazole Magnesium) 20 Mg Tablet.dr 20 Mg PO HS Allergies Allergies: Coded Allergies: Iodinated Contrast Media (Verified Allergy, Intermediate, RASH/SWELLING/SKIN TURNS RED., 03/25/22) PATIENT NEEDS PRE-MEDICATED PRIOR TO ANY SCANS REQUIRING IV CONTRAST. shellfish derived (Verified Allergy, Intermediate, RED RASH/HIVES ALL OVER BODY, 03/25/22) ROS PSYCHOLOGICAL ROS: No: Hallucinations Eyes: No Loss of vision HEENT: No: Epistaxis Respiratory: No: Hemoptysis, Shortness of breath Cardiovascular: yes Chest Pain; No Palpitations Gastrointestinal: Yes Nausea, Yes Vomiting Genitourinary: No Hematuria Neurological: No Seizures Skin: No Rash Physical Exam General: Alert, Oriented X3 HEENT: Atraumatic Lungs: Clear to auscultation Heart: Regular rate Abdomen: Soft Extremities: No edema Neuro: Normal speech Psych/Mental Status: Mood NL Vitals VITALS Vital Signs Date Time Temp Pulse Resp B/P (MAP) Pulse Ox O2 Delivery O2 Flow Rate FiO2 03/26/22 08:00 Room Air 03/26/22 07:06 98.1 70 18 116/61 (79) 96 98.1 03/26/22 03:01 1.0 Labs Labs Laboratory Tests Test 03/25/22 14:55 03/25/22 15:30 03/25/22 21:18 03/26/22 03:45 White Blood Count 6.1 x10^3/uL (4.0-11.0) Red Blood Count 4.58 x10^6/uL (3.50-5.40) Hemoglobin 14.0 g/dL (12.0-15.5) Hematocrit 40.8 % (36.0-47.0) Mean Corpuscular Volume 89 fL (79-100) Mean Corpuscular Hemoglobin 31 pg (25-35) Mean Corpuscular Hemoglobin Concent 34 g/dL (31-37) Red Cell Distribution Width 13.6 % (11.5-14.5) Platelet Count 229 x10^3/uL (140-400) Neutrophils (%) (Auto) 48 % (31-73) Lymphocytes (%) (Auto) 43 % (24-48) Monocytes (%) (Auto) 7 % (0-9) Eosinophils (%) (Auto) 1 % (0-3) Basophils (%) (Auto) 1 % (0-3) Neutrophils # (Auto) 2.9 x10^3/uL (1.8-7.7) Lymphocytes # (Auto) 2.6 x10^3/uL (1.0-4.8) Monocytes # (Auto) 0.4 x10^3/uL (0.0-1.1) Eosinophils # (Auto) 0.1 x10^3/uL (0.0-0.7) Basophils # (Auto) 0.0 x10^3/uL (0.0-0.2) Prothrombin Time 12.9 SEC (11.7-14.0) Prothromb Time International Ratio 1.0 (0.8-1.1) Activated Partial Thromboplast Time 26 SEC (24-38) Sodium Level 143 mmol/L (136-145) 146 mmol/L (136-145) Potassium Level 3.9 mmol/L (3.5-5.1) 4.4 mmol/L (3.5-5.1) Chloride Level 106 mmol/L (98-107) 110 mmol/L (98-107) Carbon Dioxide Level 29 mmol/L (21-32) 30 mmol/L (21-32) Anion Gap 8 (6-14) 6 (6-14) Blood Urea Nitrogen 16 mg/dL (7-20) 13 mg/dL (7-20) Creatinine 0.7 mg/dL (0.6-1.0) 0.7 mg/dL (0.6-1.0) Estimated GFR (Cockcroft-Gault) 80.9 80.9 BUN/Creatinine Ratio 23 (6-20) 19 (6-20) Glucose Level 198 mg/dL (70-99) 93 mg/dL (70-99) Calcium Level 9.9 mg/dL (8.5-10.1) 9.2 mg/dL (8.5-10.1) Magnesium Level 1.9 mg/dL (1.8-2.4) Total Bilirubin 0.5 mg/dL (0.2-1.0) 0.5 mg/dL (0.2-1.0) Aspartate Amino Transf (AST/SGOT) 27 U/L (15-37) 25 U/L (15-37) Alanine Aminotransferase (ALT/SGPT) 27 U/L (14-59) 25 U/L (14-59) Alkaline Phosphatase 78 U/L (46-116) 72 U/L (46-116) Troponin I High Sensitivity 5 ng/L (4-50) 7 ng/L (4-50) FF-Lla-W-Type Natriuretic Peptide 129 pg/mL (0-449) Total Protein 7.2 g/dL (6.4-8.2) 6.1 g/dL (6.4-8.2) Albumin 3.8 g/dL (3.4-5.0) 3.1 g/dL (3.4-5.0) Albumin/Globulin Ratio 1.1 (1.0-1.7) 1.0 (1.0-1.7) Lipase 69 U/L (73-393) Urine Collection Type Unknown Urine Color (Auto) Yellow Urine Turbidity Hazy Urine pH (Auto) 6.5 (<5.0-8.0) Urine Specific Herscher 1.024 (1.000-1.030) Urine Protein (Auto) 30 mg/dL (Negative) Urine Glucose (Auto)(UA) Negative mg/dL (Negative) Urine Ketones (Auto) Negative mg/dL (Negative) Urine Blood (Auto) Negative (Negative) Urine Nitrite (Auto) Negative (Negative) Urine Bilirubin (Auto) Negative (Negative) Urine Urobilinogen (Auto) Normal mg/dL (Normal) Urine Leukocyte Esterase (Auto) Negative (Negative) Urine RBC 0 /HPF (0-2) Urine WBC 1-4 /HPF (0-4) Urine Bacteria Mod /HPF (0-FEW) Urine Hyaline Casts Few /HPF Urine Mucus Mod /LPF Stool Occult Blood Positive (NEG) Glucose (Fingerstick) 90 mg/dL (70-99) Phosphorus Level 4.1 mg/dL (2.6-4.7) Test 03/26/22 07:06 Glucose (Fingerstick) 101 mg/dL (70-99) Laboratory Tests Test 03/25/22 14:55 03/25/22 15:30 03/25/22 21:18 03/26/22 03:45 White Blood Count 6.1 x10^3/uL (4.0-11.0) Red Blood Count 4.58 x10^6/uL (3.50-5.40) Hemoglobin 14.0 g/dL (12.0-15.5) Hematocrit 40.8 % (36.0-47.0) Mean Corpuscular Volume 89 fL (79-100) Mean Corpuscular Hemoglobin 31 pg (25-35) Mean Corpuscular Hemoglobin Concent 34 g/dL (31-37) Red Cell Distribution Width 13.6 % (11.5-14.5) Platelet Count 229 x10^3/uL (140-400) Neutrophils (%) (Auto) 48 % (31-73) Lymphocytes (%) (Auto) 43 % (24-48) Monocytes (%) (Auto) 7 % (0-9) Eosinophils (%) (Auto) 1 % (0-3) Basophils (%) (Auto) 1 % (0-3) Neutrophils # (Auto) 2.9 x10^3/uL (1.8-7.7) Lymphocytes # (Auto) 2.6 x10^3/uL (1.0-4.8) Monocytes # (Auto) 0.4 x10^3/uL (0.0-1.1) Eosinophils # (Auto) 0.1 x10^3/uL (0.0-0.7) Basophils # (Auto) 0.0 x10^3/uL (0.0-0.2) Prothrombin Time 12.9 SEC (11.7-14.0) Prothromb Time International Ratio 1.0 (0.8-1.1) Activated Partial Thromboplast Time 26 SEC (24-38) Sodium Level 143 mmol/L (136-145) 146 mmol/L (136-145) Potassium Level 3.9 mmol/L (3.5-5.1) 4.4 mmol/L (3.5-5.1) Chloride Level 106 mmol/L (98-107) 110 mmol/L (98-107) Carbon Dioxide Level 29 mmol/L (21-32) 30 mmol/L (21-32) Anion Gap 8 (6-14) 6 (6-14) Blood Urea Nitrogen 16 mg/dL (7-20) 13 mg/dL (7-20) Creatinine 0.7 mg/dL (0.6-1.0) 0.7 mg/dL (0.6-1.0) Estimated GFR (Cockcroft-Gault) 80.9 80.9 BUN/Creatinine Ratio 23 (6-20) 19 (6-20) Glucose Level 198 mg/dL (70-99) 93 mg/dL (70-99) Calcium Level 9.9 mg/dL (8.5-10.1) 9.2 mg/dL (8.5-10.1) Magnesium Level 1.9 mg/dL (1.8-2.4) Total Bilirubin 0.5 mg/dL (0.2-1.0) 0.5 mg/dL (0.2-1.0) Aspartate Amino Transf (AST/SGOT) 27 U/L (15-37) 25 U/L (15-37) Alanine Aminotransferase (ALT/SGPT) 27 U/L (14-59) 25 U/L (14-59) Alkaline Phosphatase 78 U/L (46-116) 72 U/L (46-116) Troponin I High Sensitivity 5 ng/L (4-50) 7 ng/L (4-50) JK-Eyt-E-Type Natriuretic Peptide 129 pg/mL (0-449) Total Protein 7.2 g/dL (6.4-8.2) 6.1 g/dL (6.4-8.2) Albumin 3.8 g/dL (3.4-5.0) 3.1 g/dL (3.4-5.0) Albumin/Globulin Ratio 1.1 (1.0-1.7) 1.0 (1.0-1.7) Lipase 69 U/L (73-393) Urine Collection Type Unknown Urine Color (Auto) Yellow Urine Turbidity Hazy Urine pH (Auto) 6.5 (<5.0-8.0) Urine Specific Herscher 1.024 (1.000-1.030) Urine Protein (Auto) 30 mg/dL (Negative) Urine Glucose (Auto)(UA) Negative mg/dL (Negative) Urine Ketones (Auto) Negative mg/dL (Negative) Urine Blood (Auto) Negative (Negative) Urine Nitrite (Auto) Negative (Negative) Urine Bilirubin (Auto) Negative (Negative) Urine Urobilinogen (Auto) Normal mg/dL (Normal) Urine Leukocyte Esterase (Auto) Negative (Negative) Urine RBC 0 /HPF (0-2) Urine WBC 1-4 /HPF (0-4) Urine Bacteria Mod /HPF (0-FEW) Urine Hyaline Casts Few /HPF Urine Mucus Mod /LPF Stool Occult Blood Positive (NEG) Glucose (Fingerstick) 90 mg/dL (70-99) Phosphorus Level 4.1 mg/dL (2.6-4.7) Test 03/26/22 07:06 Glucose (Fingerstick) 101 mg/dL (70-99) Assessment/Plan Assessment/Plan 1. Syncope, most likely vasovagal etiology. She is presently in sinus rhythm and telemetry did not show any significant arrhythmias. Recent 2D echo in July 2021 showed normal LV systolic function with EF 60% and diastolic dysfunction. No further cardiac work-up is indicated at this time. 2. Chest pain with atypical features, preceded syncopal episode and currently resolved. This is most likely GI etiology. Myocardial infarction has been ruled out. Patient had cardiac catheterization in 2019 that did not show any significant coronary artery disease. We will consider ischemic evaluation as an outpatient. 3. Palpitations s/p loop recorder implantation in the past. Device checks thus far did not show any significant arrhythmias. 4. Hypertension: Controlled 5. Hyperlipidemia: Continue statin therapy 6. Sleep apnea Okay for DC from cardiac standpoint. Follow-up in 1 month. ALIX JONES MD March 26, 2022 10:30
--- NOTE | 2022-03-26 10:52 | RAD ---
PQRS Compliance Statement - Stenosis calculations for CT, MR and conventional angiography are based u daly measurement of the distal ICA diameter in accordance with the NASCET methodology. Stenosis calcu lations for carotid ultrasound studies are derived from validated velocity criteria which are known t o correlate with the NASCET methodology. Duplex ultrasound carotid arteries HISTORY: Syncope Duplex ultrasound was used to evaluate the carotid arteries. Real-time imaging, color-flow imaging an d Doppler were utilized for evaluation. There is mild plaque in the right carotid bifurcation. Peak v elocity in the mid right internal carotid artery was 82 cm/s with end-diastolic velocity of 30 cm/s a nd a peak systolic velocity ratio 1.3. There is increased velocity in the right external carotid gavino ry with a peak systolic velocity of 185 and calcified plaque at the origin of the external carotid. T here is antegrade flow in the right vertebral. There is echogenic plaque at the left carotid bifurcation. Peak velocity in the left internal carotid artery was 126 cm/s with end-diastolic velocity of 41 cm/s and a peak systolic velocity ratio of 2.1 . Peak velocity in the left external carotid artery was 101 cm/s. There is antegrade flow in a normal sized left vertebral. IMPRESSION: 1. Mild plaque at the right carotid bifurcation with less than 50 percent stenosis. 2. 50-69 percent stenosis at the left carotid bifurcation. 3. Antegrade flow in each vertebral artery. Electronically signed by: Hilton Alvarez MD (03/26/2022 10:49 AM) [facility]
[2022-03-26] MEDS ORDERED: LOSA-73 PO (15:59)
[2022-03-26] MEDS ORDERED: METO-239 PO (15:59)
[2022-03-26] MEDS ORDERED: PSYL3.4P PO (15:59)
--- NOTE | 2022-03-26 16:02 | RAD ---
Left knee 2 views. HISTORY: Fall prior to admit with syncope, pain on standing 2 views were taken of the left knee. There is osteoarthritis with joint space narrowing medially. An acute fracture is not identified. There is no definite joint effusion. IMPRESSION: 1. Osteoarthritis left knee. Electronically signed by: Hilton Alvarez MD (03/26/2022 4:00 PM) [id number]
--- NOTE | 2022-03-26 16:03 | PDOC3 ---
Discharge Summary Visit Information Date of Admission: March 25, 2022 Date of Discharge: March 26, 2022 Admitting Diagnosis: Syncope Final Diagnosis Problems Medical Problems: (1) Chest pain Status: Acute (2) Syncope Status: Acute Brief Hospital Course Allergies Allergies Coded Allergies Type Severity Reaction Last Updated Verified Iodinated Contrast Media Allergy Intermediate RASH/SWELLING/SKIN TURNS RED. 03/25/22 Yes shellfish derived Allergy Intermediate RED RASH/HIVES ALL OVER BODY 03/25/22 Yes Vital Signs Vital Signs Date Time Temp Pulse Resp B/P (MAP) Pulse Ox O2 Delivery O2 Flow Rate FiO2 03/26/22 15:10 140/70 (93) 03/26/22 14:05 98.1 62 18 95 Room Air 98.1 03/26/22 03:01 1.0 Lab Results Laboratory Tests Test 03/25/22 14:55 03/25/22 15:30 03/25/22 21:18 03/26/22 03:45 White Blood Count 6.1 x10^3/uL (4.0-11.0) Red Blood Count 4.58 x10^6/uL (3.50-5.40) Hemoglobin 14.0 g/dL (12.0-15.5) Hematocrit 40.8 % (36.0-47.0) Mean Corpuscular Volume 89 fL (79-100) Mean Corpuscular Hemoglobin 31 pg (25-35) Mean Corpuscular Hemoglobin Concent 34 g/dL (31-37) Red Cell Distribution Width 13.6 % (11.5-14.5) Platelet Count 229 x10^3/uL (140-400) Neutrophils (%) (Auto) 48 % (31-73) Lymphocytes (%) (Auto) 43 % (24-48) Monocytes (%) (Auto) 7 % (0-9) Eosinophils (%) (Auto) 1 % (0-3) Basophils (%) (Auto) 1 % (0-3) Neutrophils # (Auto) 2.9 x10^3/uL (1.8-7.7) Lymphocytes # (Auto) 2.6 x10^3/uL (1.0-4.8) Monocytes # (Auto) 0.4 x10^3/uL (0.0-1.1) Eosinophils # (Auto) 0.1 x10^3/uL (0.0-0.7) Basophils # (Auto) 0.0 x10^3/uL (0.0-0.2) Prothrombin Time 12.9 SEC (11.7-14.0) Prothromb Time International Ratio 1.0 (0.8-1.1) Activated Partial Thromboplast Time 26 SEC (24-38) Sodium Level 143 mmol/L (136-145) 146 mmol/L (136-145) Potassium Level 3.9 mmol/L (3.5-5.1) 4.4 mmol/L (3.5-5.1) Chloride Level 106 mmol/L (98-107) 110 mmol/L (98-107) Carbon Dioxide Level 29 mmol/L (21-32) 30 mmol/L (21-32) Anion Gap 8 (6-14) 6 (6-14) Blood Urea Nitrogen 16 mg/dL (7-20) 13 mg/dL (7-20) Creatinine 0.7 mg/dL (0.6-1.0) 0.7 mg/dL (0.6-1.0) Estimated GFR (Cockcroft-Gault) 80.9 80.9 BUN/Creatinine Ratio 23 (6-20) 19 (6-20) Glucose Level 198 mg/dL (70-99) 93 mg/dL (70-99) Calcium Level 9.9 mg/dL (8.5-10.1) 9.2 mg/dL (8.5-10.1) Magnesium Level 1.9 mg/dL (1.8-2.4) Total Bilirubin 0.5 mg/dL (0.2-1.0) 0.5 mg/dL (0.2-1.0) Aspartate Amino Transf (AST/SGOT) 27 U/L (15-37) 25 U/L (15-37) Alanine Aminotransferase (ALT/SGPT) 27 U/L (14-59) 25 U/L (14-59) Alkaline Phosphatase 78 U/L (46-116) 72 U/L (46-116) Troponin I High Sensitivity 5 ng/L (4-50) 7 ng/L (4-50) ZR-Svc-R-Type Natriuretic Peptide 129 pg/mL (0-449) Total Protein 7.2 g/dL (6.4-8.2) 6.1 g/dL (6.4-8.2) Albumin 3.8 g/dL (3.4-5.0) 3.1 g/dL (3.4-5.0) Albumin/Globulin Ratio 1.1 (1.0-1.7) 1.0 (1.0-1.7) Lipase 69 U/L (73-393) Urine Collection Type Unknown Urine Color (Auto) Yellow Urine Turbidity Hazy Urine pH (Auto) 6.5 (<5.0-8.0) Urine Specific [place] 1.024 (1.000-1.030) Urine Protein (Auto) 30 mg/dL (Negative) Urine Glucose (Auto)(UA) Negative mg/dL (Negative) Urine Ketones (Auto) Negative mg/dL (Negative) Urine Blood (Auto) Negative (Negative) Urine Nitrite (Auto) Negative (Negative) Urine Bilirubin (Auto) Negative (Negative) Urine Urobilinogen (Auto) Normal mg/dL (Normal) Urine Leukocyte Esterase (Auto) Negative (Negative) Urine RBC 0 /HPF (0-2) Urine WBC 1-4 /HPF (0-4) Urine Bacteria Mod /HPF (0-FEW) Urine Hyaline Casts Few /HPF Urine Mucus Mod /LPF Stool Occult Blood Positive (NEG) Glucose (Fingerstick) 90 mg/dL (70-99) Phosphorus Level 4.1 mg/dL (2.6-4.7) Test 03/26/22 07:06 Glucose (Fingerstick) 101 mg/dL (70-99) Laboratory Tests Test 03/25/22 21:18 03/26/22 03:45 03/26/22 07:06 Glucose (Fingerstick) 90 mg/dL (70-99) 101 mg/dL (70-99) Sodium Level 146 mmol/L (136-145) Potassium Level 4.4 mmol/L (3.5-5.1) Chloride Level 110 mmol/L (98-107) Carbon Dioxide Level 30 mmol/L (21-32) Anion Gap 6 (6-14) Blood Urea Nitrogen 13 mg/dL (7-20) Creatinine 0.7 mg/dL (0.6-1.0) Estimated GFR (Cockcroft-Gault) 80.9 BUN/Creatinine Ratio 19 (6-20) Glucose Level 93 mg/dL (70-99) Calcium Level 9.2 mg/dL (8.5-10.1) Phosphorus Level 4.1 mg/dL (2.6-4.7) Total Bilirubin 0.5 mg/dL (0.2-1.0) Aspartate Amino Transf (AST/SGOT) 25 U/L (15-37) Alanine Aminotransferase (ALT/SGPT) 25 U/L (14-59) Alkaline Phosphatase 72 U/L (46-116) Troponin I High Sensitivity 7 ng/L (4-50) Total Protein 6.1 g/dL (6.4-8.2) Albumin 3.1 g/dL (3.4-5.0) Albumin/Globulin Ratio 1.0 (1.0-1.7) Brief Hospital Course Ms. Cooper is a 76-year-old female with past medical history of depression, prediabetes, HTN, GERD, HLD, SULEMAN with CPAP who comes to the ED via EMS after syncopal episode. relates that they had a "great meal" at [employer] she ate a salad soup and many breadsticks and they were driving home stopped at [employer] where she stated she felt like she had to use the restroom and her noticed she stopped held on the door he came behind her and she fell back into him and he gently sat her down on the ground and called 911 she was noted to be pale and diaphoretic and vomited upon awakening. She was found to be tachycardic in the 120s according to EMS with a glucose of 153. She recalls getting up to get out of the car in having some abdominal pain and nausea and the next thing she recalls is waking up in an ambulance. She does note a little bit of chest discomfort at the time but it is resolved by the time of evaluation in ED though she still does have some faint nausea little bit of abdominal cramping On further review notes no recent sick contacts no recent travel. Vaccines are up-to-date including COVID-19. notes he felt like he almost had to do CPR on his . The only recent changes that she has not been wearing her CPAP because she is felt discomfort with the facemask pressing on the bridge of her nose and so its been quite sometime since she is worn it. She notes she had a referral for a [facility] outpatient evaluation for an Inspire sleep apnea device insertion but she is hesitant to follow through and instead is asked if she could have a nasal pillow and chinstrap for her CPAP. Home meds are bupropion 100mg twice daily Pravachol 40 mg nightly losartan 50 mg daily omeprazole 20 mg daily metoprolol succinate 50 mg daily split into 25 mg twice daily. WBC 6.1, Hb 14, platelets 229, INR 1, PTT 26, NA 143, K3.9 03/26: BP was low only given half dose of her Toprol-XL and still with low BP. Now that she is more alert she complained of left knee pain upon standing notes she did have her knee buckle and hit it on the door of the car as he caught her when she fell. She notes that her home blood pressure cuff has been reading high frequently and there is discordance between it and outpatient readings elsewhere. Underwent carotid Doppler with 50 to 69% stenosis at left carotid bifurcation and no significant stenosis on the right. Orthostatic blood pressure readings were consistently in the 120s systolic. Heart rate maintained in the 60s no atrial aberrancies. She had a bowel movement without any further vasovagal events. She did not receive her losartan during this hospital stay is recommended to continue just 25 mg of Toprol-XL at home and if her blood pressure is greater than 150/90 on 2 or more readings to add back her home losartan and follow-up with cardiology as previously scheduled in a week and also have outpatient vascular surgery refe rral Consults: Cardiology Problem list: Syncope -with loss of consciousness did not strike her head. No seizure-like activity. Ordered echo -LVH on EKG, concern for structrual heart disease as etiology, but most likely this is a vasovagal event HTN - cont home meds, as she approaches 78 may need to cut back on her metoprolol she has had several low blood pressures. Constipation - add bowel regimen HLD - cont statin GERD - PPI Depression - cont wellbutrin Prediabetes - monitor glucose SULEMAN with CPAP compliance difficulties -she is skeptical about the inspire device insertion and will find out who her CPAP welding operator is so they can be contacted to assess for nasal pillows and chinstrap. Greater than 30 minutes spent on discharge home with self-care Discharge Information Condition at Discharge: Improved Follow Up: Weeks Disposition/Orders: D/C to Home Scheduled Aspirin (Aspirin) 81 Mg Tab.chew, 81 MG PO HS for heart healthy, (Reported) Entered as Reported by: DEVON QUINN on 10/18/18 0743 Last Action: Continued on 03/25/221811 by YEIMY DOUGLAS MD Calcium Carbonate (Calcium) 600 Mg Tablet, 600 MG PO HS for , (Reported) Entered as Reported by: JOLEEN SHEEHAN RN on 05/28/20 0558 Last Action: Converted on 03/25/221811 by YEIMY DOUGLAS MD Losartan Potassium (Losartan Potassium) 50 Mg Tablet, 25 MG PO DAILY for HYPE RTENSION for 30 Days, #15 Prescribed by: YEIMY DOUGLAS MD on 03/26/22 1559 Metoprolol Succinate (Metoprolol Succinate ( Xl )) 25 Mg Tab.er.24h, 25 MG PO QPM for FOR HYPERTENSION for 30 Days, #30 Ref 0 Prescribed by: YEIMY DOUGLAS MD on 03/26/22 1559 Multivitamin (Multivitamins) 1 Each Tablet, 1 EACH PO HS for supplement, (Reported) Entered as Reported by: DEVON QUINN on 10/18/18 0741 Last Action: Converted on 03/25/221811 by YEIMY DOUGLAS MD Omeprazole Magnesium (Prilosec Otc) 20 Mg Tablet.dr, 20 MG PO HS for heart burn, (Reported) Entered as Reported by: DEVON QUINN on 10/18/18 0740 Last Action: Converted on 03/25/221811 by YEIMY DOUGLAS MD Psyllium Husk/Aspartame (Metamucil Fiber Singles Packet) 3.4 Gm Powd.pack, 1 PKT PO QHS for Constipation for 30 Days, #30 Prescribed by: YEIMY DOUGLAS MD on 03/26/22 1559 Discontinued Medications Alprazolam (Xanax) 0.25 Mg Tablet, 0.25 MG PO PRN Q6HRS PRN for ANXIETY / AGITATION for 10 Days, #20 Ref 0 Prescribed by: DORENE FRANCISCO on 02/02/22 1112 Citalopram Hydrobromide (Citalopram Hbr) 20 Mg Tablet, 20 MG PO HS for depression, (Reported) Entered as Reported by: DEVON QUINN on 10/18/18 0745 Lisinopril (Lisinopril) 40 Mg Tablet, 0.5 TAB PO BID for bp, #30 Ref 5 (Reported) Entered as Reported by: KAREN CHRISTENSEN on 03/25/222110 Last Taken: Unknown Dose on 03/24/22 Last Action: Edited on 03/25/222112 by KAREN CHRISTENSEN Nitroglycerin (Nitrostat) 0.4 Mg Tab.subl, 0.4 MG SL PRN Q5MIN PRN for CHEST PAIN for 30 Days, #25 Prescribed by: DORENE FRANCISCO on 02/02/22 1110 Justicifation of Admission Dx: Justifications for Admission: Justification of Admission Dx: N/A YEIMY DOUGLAS MD March 26, 2022 16:03
--- NOTE | 2022-03-26 16:27 | NUR ---
Patient discharged via wheelchair by private vehicle with spouse. Patient is awake and stable. Patient has no questions about discharge. Patient given all discharge instructions handout.
[2022-03-26] MEDS ORDERED: METOPROLOL SUCC 24HR ER 25 MG TAB.ER.24H. PO SCH (18:00)
== END 2022-03-26 16:25 | disposition home or self-care (01) | DRG 312 ==
LOC: ER 14:46 → 6 SOUTH 17:00
PROVIDERS: ADMIT Internal Medicine; ATTEND Internal Medicine
DX: R55 Syncope and collapse (principal); J98.11 Atelectasis; R07.89 Other chest pain; E11.9 Type 2 diabetes mellitus without complications; E78.00 Pure hypercholesterolemia, unspecified; E78.5 Hyperlipidemia, unspecified; F32.A Depression, unspecified; G47.33 Obstructive sleep apnea (adult) (pediatric); I10 Essential (primary) hypertension; I48.91 Unspecified atrial fibrillation; K21.9 Gastro-esophageal reflux disease without esophagitis; K59.00 Constipation, unspecified; M79.7 Fibromyalgia; Z79.899 Other long term (current) drug therapy; Z82.49 Family history of ischemic heart disease and other diseases of the circulatory system; Z90.710 Acquired absence of both cervix and uterus; F41.9 Anxiety disorder, unspecified; M19.90 Unspecified osteoarthritis, unspecified site; Z88.8 Allergy status to other drugs, medicaments and biological substances; Z91.013 Allergy to seafood
CPT/HCPCS: 36415; 70450; 71045; 73560; 74176; 80053; 81001; 82274; 82533; 82962; 83690; 83735; 83880; 84100; 84484; 85025; 85610; 85730; 93880; 96361; 96374; J1815; J2405; J7030; 99285-25; G0378